=== PATIENT | female | born 1955 | race Caucasian/White ===

== ENCOUNTER 2017-12-16 13:25 | Emergency (ER) | payer OTHER ==
[2017-12-16 13:41] VITALS: TEMP 97.6; BMI 32.1
--- NOTE | 2017-12-16 14:44 | PDOC ---
Attending Attestation - Resident Resident Name: Ewelina Schultz - ED Attending Attestation I have performed the following: I have examined & evaluated the patient, The case was reviewed & discussed with the resident, I agree w/resident's findings & plan, Exceptions are as noted - HPI HPI: 12/16/17 16:58 62y F hx of htn, vasculitis, ckd (kdiney function 80% pr pt) sent to the ED by Dr. Riggs for complaint of R leg pain and swelling to r/o dVT. The pt states she has been having swelling/pain for about a week - she went to her docotr who treated her with tylenol and keflex. The patient states the meds arent helping to omuch. the pt denies fever/chills, sob, chest pain, recent trauma/injuries. the pts pain is worse when she is laying flat, and worse when she is ambulating. PT states it feels a bit better when on exam the pt has focal tenderness to the R buttock. ?sciatica dvt study negative for dvts will obtain blodo work to r/o renal insufficiency, liver failure as cause for her worsening leg swelling. will treat with tylenol, valuium for sciatica - Physicial Exam PE: 12/17/17 08:02 see above - Medical Decision Making 12/17/17 08:02 desiree muñoz
[2017-12-16] MEDS ORDERED: ACETAMINOPHEN 500 MG TABLET (FP) PO ONE (15:03)
--- NOTE | 2017-12-16 15:44 | PDOC ---
History of Present Illness - General Chief Complaint: Pain, Acute Stated Complaint: PAIN IN RIGHT LEG. Time Seen by Provider: 12/16/17 14:20 History Source: Patient, Significant Other Exam Limitations: No Limitations - History of Present Illness Initial Comments: This is a 62 YOF with h/o prior DVT (takes ASA but not currently on anticoagulant), vasculitis (on Cellcept), HTN, HLD, who presents as instructed by her PCP Stan Riggs for RLE pain, swelling, and redness, as well as LLE increased chronic swelling. The pain is up to 10/10 and is shooting in nature, located along the entire right lateral leg to the hip, with the worst pain in the upper leg and hip. She denies any chest pain, SOB, palpitations, cough, recent surgery/immobilization, recent car or airplane travel, estrogen use, or other additional risk factors. Past History - Past Medical History Allergies/Adverse Reactions: Allergies Allergy/AdvReac Type Severity Reaction Status Date / Time No Known Allergies Allergy Verified 12/16/17 13:35 Home Medications: Ambulatory Orders Calcium Carbonate/Vitamin D3 [Calcium 500 + Vit D 200 Caplet] 1 tab PO DAILY 10/17 Iron Ps Complex/B12/Folic Acid [Ferrex 150 Forte Capsule] 1 cap PO DAILY Metoprolol Tartrate 100 mg PO DAILY 12/12/15 Mycophenolate Mofetil 500 mg PO BID 12/12/15 Omeprazole [Prilosec (RX)] 40 mg PO DAILY 12/12/15 Alendronate Na [Fosamax] 70 mg PO Q7D 12/16/17 Amlodipine Besylate [Norvasc -] 10 mg PO DAILY 12/16/17 Aspirin 162 mg PO DAILY 12/16/17 Cephalexin [Keflex] 500 mg PO BID 12/16/17 Methylprednisolone [Medrol Dose Dennis] 4 mg PO ASDIR #21 tablet 12/16/17 Oxycodone HCl/Acetaminophen [Percocet 5-325 mg Tablet] 1 tab PO Q4H #20 tablet MDD 6 12/16/17 COPD: No DVT: No HTN: Yes - Surgical History Abdominal Surgery: Yes (ABDOMINAL ulcer repair 2010) Orthopedic Surgery: Yes (fx femur repair 07/2015) - Immunization History Immunization Up to Date: Yes - Suicide/Smoking/Psychosocial Hx Smoking History: Never smoked Have you smoked in the past 12 months: No Information on smoking cessation initiated: No Hx Alcohol Use: No Drug/Substance Use Hx: No Substance Use Type: None Review of Systems - Review of Systems Able to Perform ROS?: Yes Constitutional: No: Chills, Fever, Unexplained wgt Loss HEENTM: No: Nose Congestion, Throat Pain Respiratory: No: Cough, Shortness of Breath Cardiac (ROS): No: Chest Pain, Palpitations ABD/GI: No: Constipated, Diarrhea, Nausea, Vomiting : No: Burning, Dysuria Musculoskeletal: Yes: Other (right leg pain, redness, and swelling). No: Back Pain, Neck Pain Integumentary: No: Bruising, Rash Neurological: No: Headache, Numbness, Tingling, Weakness, Dizziness Endocrine: No: Unexplained Weight Gain, Unexplained Weight Loss *Physical Exam - Vital Signs Last Vital Signs Temp Pulse Resp BP Pulse Ox 97.6 F 73 16 150/80 98 12/16/17 13:36 12/16/17 13:36 12/16/17 13:36 12/16/17 13:36 12/16/17 13:36 - Physical Exam General Appearance: Yes: Nourished, Appropriately Dressed, Obese, Other (alert, answers questions appropriately, accompanied by supportive brother at bedside). No: Apparent Distress HEENT: positive: EOMI, JUANY, Normal Voice, Hearing Grossly Normal. negative: Scleral Icterus (R), Scleral Icterus (L), Nasal Congestion Neck: positive: Trachea midline, Supple. negative: Tender, Rigid Respiratory/Chest: positive: Lungs Clear, Normal Breath Sounds. negative: Chest Tender, Respiratory Distress, Crackles, Rhonchi, Stridor, Wheezing Cardiovascular: positive: Regular Rhythm, Regular Rate, S1, S2, Edema (2+ pitting edema BLE). negative: Murmur, Gallop/S3, Gallop/S4 Comments:: right DP pulse not palpable but there is 2+ pitting edema Gastrointestinal/Abdominal: positive: Normal Bowel Sounds, Soft. negative: Tender, Organomegaly, Pulsatile Mass, Guarding Musculoskeletal: positive: Normal Inspection. negative: CVA Tenderness, Decreased Range of Motion, Vertebral Tenderness Extremity: positive: Normal Capillary Refill, Normal Inspection, Normal Range of Motion, Pedal Edema (bilateral), Swelling, Other (mild erythema RLE but without any warmth, staight leg raises elicits shooting pain in the right lateral hip/thigh). negative: Tender, Coldness, Cyanosis, Delayed Capillary Refill, Calf Tenderness Integumentary: positive: Normal Color, Dry, Warm. negative: Erythema, Rash, Bruising Neurologic: positive: electrical timing device calibrator II-XII NML intact (grossly), Fully Oriented, Alert, Normal Mood/Affect, Normal Response, Motor Strength 5/5. negative: EOM Palsy, Facial Droop, Finger to Nose, Confused, Disoriented ED Treatment Course - LABORATORY CBC & Chemistry Diagram: 12/16/17 16:40 12/16/17 16:40 - RADIOLOGY Radiology Studies Ordered: Category Date Time Status ANKLE & FOOT-LEFT* [RAD] Stat Radiology 12/16/17 15:05 Ordered CHEST PA & LAT [RAD] Stat Radiology 12/16/17 15:04 Ordered DUPLEX VASCUL US-2LEGS [US] Stat Ultrasound 12/16/17 14:40 Ordered Medical Decision Making - Medical Decision Making 62 YOF with h/o prior DVT, HTN, HLD, vasculitis who p/w increase RLE swelling/ pain. On exam VS wnl and she is in no distress at rest but winces with movement of RLE and splints right hip. 2+ pitting edema BLE but no JVD, no gallop, normal heart and lung exams. DDX IBNLT DVT, CHF exacerbation, renal insufficiency, sciatica and dependent edema, etc. Ordered is CBCD, CMP, Mg, cardiac panel, BNP, coags, T&S, US duplex BLE, ankle/ foot XR, CXR. 12/16/17 17:18 US Duplex BLE negative for DVT or other pathology. CBC and coags wnl, CMP with Cr 1.4 and BNP in the 900s. 12/16/17 18:14 Patient is able to walk unassisted, with cane, to x-ray room from vertical room. States her pain is well-controlled after Tylenol and Valium doses here in the ED. 12/16/17 18:[address] Stan Riggs who notes Pt's Cr is normally 1.2-1.4. Will call him back with XR results and plan based on those results. *DC/Admit/Observation/Transfer Diagnosis at time of Disposition: Leg swelling Sciatica Qualifiers: Laterality: right Qualified Code(s): M54.31 - Sciatica, right side - Discharge Dispostion Disposition: HOME Condition at time of disposition: Stable Admit: No - Prescriptions Prescriptions: Methylprednisolone [Medrol Dose Dennis] 4 mg PO ASDIR #21 tablet Oxycodone HCl/Acetaminophen [Percocet 5-325 mg Tablet] 1 tab PO Q4H #20 tablet MDD 6 - Referrals Referrals: Stan Riggs MD [Primary Care Provider] - - Patient Instructions Additional Instructions: You were seen in the ER for right leg pain and swelling. We did lab work and x- rays of the ankle, foot, and chest. There were no concerning findings on our workup. We gave you Tylenol and a dose of valium which helped with the pain. We are sending an electronic prescription for a Medrol Dosepak to help with the inflammation, and Percocet for the pain (which has Tylenol in it already). Please follow up with Dr. Riggs this week. Return to the ER for any worsening pain or new symptoms like shortness of breath or chest pain. - Post Discharge Activity
[2017-12-16] MEDS ORDERED: ACETAMINOPHEN 325 MG TABLET (FP) ONE (15:49)
[2017-12-16 16:47] LABS: BASO % 0.9 % (0-2.0); EOS % 0.9 % (0-4.5); HEMOGLOBIN 14.1 GM/dL (10.7-15.3); LYMPH % 25.1 % (8-40); MCH 28.5 pg (25.7-33.7); MEAN PLT VOLUME 9.3 fl (7.5-11.1); NEUT % 65.1 % (42.8-82.8); PLATELET COUNT 205 K/MM3 (134-434); RBC 4.95 M/mm3 (3.60-5.2); RDW 15.5 % (11.6-15.6); WHITE BLOOD COUNT 6.1 K/mm3 (4.0-10.0)
[2017-12-16 17:09] LABS: INR 0.92 (0.82-1.09); PROTHROMBIN TIME (PATIENT) 10.4 SEC (9.98-11.88)
[2017-12-16] MEDS ORDERED: diazePAM 2 MG TABLET PO ONE (17:11)
[2017-12-16 17:25] LABS: ALBUMIN 4.4 g/dl (3.4-5.0); ANION GAP 9 (8-16); BILIRUBIN,TOTAL 0.6 mg/dL (0.2-1.0); BLOOD UREA NITROGEN 36 mg/dL (7-18); CALCIUM 9.4 mg/dL (8.5-10.1); CHLORIDE 105 mmol/L (98-107); CO2 26 mmol/L (21-32); CREATININE 1.4 mg/dL (0.55-1.02); GLUCOSE,RANDOM 103 mg/dL (74-106); MAGNESIUM 2.2 mg/dL (1.8-2.4); POTASSIUM 4.4 mmol/L (3.5-5.1); SGOT/AST 20 U/L (15-37); SGPT/ALT 27 U/L (12-78); SODIUM 140 mmol/L (136-145); TOT PROT 7.8 g/dl (6.4-8.2)
[2017-12-16 17:28] LABS: ALK PHOS 69 U/L (45-117)
[2017-12-16] MEDS ORDERED: diazePAM 2 MG TABLET ONE (17:30)
[2017-12-16 20:27] VITALS: BP 138/86; PULSE 80
== END 2017-12-16 20:27 | disposition home or self-care (01) ==
LOC: JER 13:25
DX: M54.31 Sciatica, right side (principal); R60.0 Localized edema; Z86.718 Personal history of other venous thrombosis and embolism; Z79.82 Long term (current) use of aspirin; I10 Essential (primary) hypertension; E78.00 Pure hypercholesterolemia, unspecified; I77.6 Arteritis, unspecified
CPT/HCPCS: 36415; 71046-TC; 73610-TC-RT; 73630-TC-RT; 80053; 82550; 83735; 83880; 84484; 85025; 85610; 85730; 86850; 86900; 86901; 93970-TC; 99284-25

== ENCOUNTER 2019-06-12 12:50 | Inpatient (IN) | payer OTHER ==
--- NOTE | 2019-06-12 13:04 | PDOC ---
Rapid Medical Evaluation Time Seen by Provider: 06/12/19 13:02 Medical Evaluation: Allergies Allergy/AdvReac Type Severity Reaction Status Date / Time No Known Allergies Allergy Verified 12/16/17 13:35 06/12/19 13:02 I have performed a brief in-person evaluation of this patient. The patient presents with a chief complaint of: sent by PMD to r/o DVT Pertinent physical exam findings: BLE swelling and erythema with L>R I have ordered the following: sono The patient will proceed to the ED for further evaluation. Discharge Disposition - Diagnosis Leg swelling - Referrals - Patient Instructions - Post Discharge Activity
--- NOTE | 2019-06-12 15:48 | PDOC ---
History of Present Illness - General Chief Complaint: Edema Stated Complaint: LT. SWOLLEN LEG Time Seen by Provider: 06/12/19 13:02 History Source: Patient Exam Limitations: No Limitations - History of Present Illness Initial Comments: 06/12/19 15:36 64 yo F h/o vasculitis, on cellcept htn, hld chf here today c/o bilat leg swelling and pain. saw pcp Stan apodaca this am sent to r/o dvt. pt denies fever, no n/v no cp no sob. but does have bilat leg pain . is ambulating with cane with difficulty does have a walker at home. no cp no sob. no f/c no h/o dvt or pe. Past History - Past Medical History Allergies/Adverse Reactions: Allergies Allergy/AdvReac Type Severity Reaction Status Date / Time No Known Allergies Allergy Verified 12/16/17 13:35 Home Medications: Ambulatory Orders Calcium Carbonate/Vitamin D3 [Calcium 500 + Vit D 200 Caplet] 1 tab PO DAILY 10/17 Iron Ps Complex/B12/Folic Acid [Ferrex 150 Forte Capsule] 1 cap PO DAILY Metoprolol Tartrate 100 mg PO DAILY 12/12/15 Mycophenolate Mofetil 500 mg PO BID 12/12/15 Alendronate Na [Fosamax] 70 mg PO Q7D 12/16/17 Amlodipine Besylate [Norvasc -] 10 mg PO DAILY 12/16/17 Aspirin 81 mg PO DAILY 12/16/17 COPD: No DVT: No HTN: Yes - Surgical History Abdominal Surgery: Yes (ABDOMINAL ulcer repair 2010) Orthopedic Surgery: Yes (fx femur repair 07/2015) - Immunization History Immunization Up to Date: Yes - Suicide/Smoking/Psychosocial Hx Smoking History: Never smoked Have you smoked in the past 12 months: No Hx Alcohol Use: No Drug/Substance Use Hx: No Substance Use Type: None Review of Systems - Review of Systems Constitutional: No: Chills, Diaphoresis, Fever HEENTM: No: Eye Pain Respiratory: No: Cough, Orthopnea, Shortness of Breath Cardiac (ROS): Yes: Edema. No: Chest Pain Integumentary: No: Bruising, Change in Color All Other Systems: Reviewed and Negative *Physical Exam - Vital Signs Last Vital Signs Temp Pulse Resp BP Pulse Ox 98.1 F 78 20 156/84 92 L 07/12/19 13:03 06/12/19 13:03 06/12/19 13:03 06/12/19 13:03 06/12/19 13:03 - Physical Exam Comments: 06/12/19 15:48 awake alert lungs clear bilat heart rrr no mrg abd soft nt nd obese. bilat leg brawning edema. erythema and warmth right leg level of knee. no tenderness. 1+ dp/ pulses bilat. nuero alert oriented x 3. Heart Score/ECG Review #1 General ECG Interpretation: Sinus Rhythm, Normal Rate (70), Normal Intervals, No acute ischemic changes ED Treatment Course - LABORATORY CBC & Chemistry Diagram: 06/12/19 16:20 06/12/19 16:20 Medical Decision Making - Medical Decision Making 06/12/19 15:49 64 yo F with h/o htn vasculitis, hld chf on cellcept for vasculitit here with bilat leg swelling erythema and pain. differential dvt, cellultiis, pt is immunocompromised. plan labs ekg us bilat legs. yefri d/w dr stan Riggs. ,myra riggs paged [phone] [facility] *DC/Admit/Observation/Transfer Diagnosis at time of Disposition: Leg swelling, Cellulitis - Discharge Dispostion Decision to Admit order: Yes - Referrals - Patient Instructions - Post Discharge Activity
[2019-06-12] MEDS ORDERED: VANCOMYCIN 1 GM in D5W (PRE-DOCKED) 1,000 MG/250 ML IVPB ONE (16:16)
[2019-06-12] MEDS ORDERED: PIPERACILLIN/TAZOB 3.375 GM 3.375 GM in DEXTROSE 5%-WATER - 50 ML IVPB ONE (16:16)
[2019-06-12] MEDS ORDERED: PIPERACILLIN/TAZOB 3.375 GM 3.375 GM/50 ML BAG IVPB ONE (16:30)
[2019-06-12] MEDS ORDERED: VANCOMYCIN 1 GRAM (PRE-DOCKED) 1,000 MG/250 ML BAG IVPB ONE (16:30)
[2019-06-12 17:03] LABS: BASO % 0.7 % (0-2.0); HEMATOCRIT 41.3 % (32.4-45.2); HEMOGLOBIN 13.7 GM/dL (10.7-15.3); LYMPH % 25.5 % (8-40); MCH 29.4 pg (25.7-33.7); MCHC 33.1 g/dl (32.0-36.0); MEAN PLT VOLUME 8.8 fl (7.5-11.1); NEUT % 64.8 % (42.8-82.8); PLATELET COUNT 209 K/MM3 (134-434); RBC 4.64 M/mm3 (3.60-5.2); RDW 13.5 % (11.6-15.6)
--- NOTE | 2019-06-12 17:55 | HP ---
Admitting History and Physical - Admission Chief Complaint: came to office c/o lt leg pain scale5 swelling erythematousx 1 wk History Source: Patient Limitations to Obtaining History: Other (unstedy gait due to lt leg) - Past Medical History Cardiovascular: Yes: CHF, HTN Pulmonary: Yes: Other (h/o pud healeg) Reproductive: Yes: Postmenopausal Musculoskeletal: Yes: Other (h/p lt femur fx) Rheumatology: Yes: Other (h/o dvth/o vasculitis colon kidney legs) Dermatology: Yes: Cellulitis - Past Surgical History Past Surgical History: Yes: Vein Stripping/Ligation - Smoking History Smoking history: Never smoked Have you smoked in the past 12 months: No - Alcohol/Substance Use Hx Alcohol Use: No - Social History Usual Living Arrangement: Yes: Alone ADL: Independent History of Recent Travel: No Home Medications - Allergies Allergies/Adverse Reactions: Allergies Allergy/AdvReac Type Severity Reaction Status Date / Time No Known Allergies Allergy Verified 12/16/17 13:35 - Home Medications Home Medications: Ambulatory Orders Calcium Carbonate/Vitamin D3 [Calcium 500 + Vit D 200 Caplet] 1 tab PO DAILY 10/17 Iron Ps Complex/B12/Folic Acid [Ferrex 150 Forte Capsule] 1 cap PO DAILY Metoprolol Tartrate 100 mg PO DAILY 12/12/15 Mycophenolate Mofetil 500 mg PO BID 12/12/15 Alendronate Na [Fosamax] 70 mg PO Q7D 12/16/17 Amlodipine Besylate [Norvasc -] 10 mg PO DAILY 12/16/17 Aspirin 81 mg PO DAILY 12/16/17 Family Disease History - Family Disease History Family History: Unremarkable Review of Systems - Review of Systems Musculoskeletal: reports: Other (lt leg cellulitis lyphodema) Physical Examination Vital Signs: Vital Signs Temperature 98.2 F 06/12/19 17:37 Pulse Rate 76 06/12/19 17:37 Respiratory Rate 23 H 06/12/19 17:37 Blood Pressure 136/76 06/12/19 17:37 O2 Sat by Pulse Oximetry (%) 98 06/12/19 17:37 Constitutional: Yes: Well Nourished Eyes: Yes: WNL HENT: Yes: WNL Neck: Yes: WNL Cardiovascular: Yes: WNL Respiratory: Yes: WNL Gastrointestinal: Yes: WNL ...Rectal Exam: Yes: Deferred Renal/: Yes: WNL Breast(s): Yes: WNL Musculoskeletal: Yes: Back Pain, Joint Stiffness Extremities: Yes: Delayed Capillary Refill Edema: Yes Edema: LLE: 2+, RLE: 1+ Peripheral Pulses WNL: Yes Integumentary: Yes: Erythema Neurological: Yes: WNL ...Motor Strength: WNL Psychiatric: Yes: WNL Labs: CBC, BMP 06/12/19 16:20 Assessment/Plan dx lt leg cellulitis h/o dvt vaSCULITIS HTN PUD HEALED PLAN VASC ID TO SEE PT CONT ALL MEDS HOME IV ANTIBIOTICS LEG ELEVATION WARM SOAKS
[2019-06-12 18:11] LABS: ALBUMIN 4.4 g/dl (3.4-5.0); BILIRUBIN,TOTAL 0.6 mg/dL (0.2-1); BLOOD UREA NITROGEN 30.5 mg/dL (7-18); CREATININE 1.4 mg/dL (0.55-1.3); POTASSIUM 4.2 mmol/L (3.5-5.1); TOT PROT 7.6 g/dl (6.4-8.2)
[2019-06-12] MEDS: METOPROLOL TARTRATE 50 MG TABLET (FP) PO SCH (21:56)
[2019-06-12] MEDS: MYCOPHENOLATE MOFETIL 500 MG TABLET PO SCH (21:56)
[2019-06-12] MEDS: ROSUVASTATIN CA 20 MG TABLET (FP) PO SCH (21:56)
[2019-06-13] MEDS: ACETAMINOPHEN 325 MG TABLET (FP) PO PRN ×4 (03:11→21:33)
[2019-06-13 07:57] LABS: HEMATOCRIT 35.6 % (32.4-45.2); HEMOGLOBIN 11.8 GM/dL (10.7-15.3); MCH 29.6 pg (25.7-33.7); MCHC 33.1 g/dl (32.0-36.0); MEAN CELL VOLUME 89.4 fl (80-96); MEAN PLT VOLUME 9.1 fl (7.5-11.1); PLATELET COUNT 171 K/MM3 (134-434); RBC 3.99 M/mm3 (3.60-5.2); RDW 13.3 % (11.6-15.6); WHITE BLOOD COUNT 5.3 K/mm3 (4.0-10.0)
[2019-06-13 08:08] LABS: ALBUMIN 3.5 g/dl (3.4-5.0); BILIRUBIN,TOTAL 0.6 mg/dL (0.2-1); CALCIUM 8.9 mg/dL (8.5-10.1); CREATININE 1.3 mg/dL (0.55-1.3); POTASSIUM 3.9 mmol/L (3.5-5.1); TOT PROT 6.1 g/dl (6.4-8.2)
[2019-06-13] MEDS: METOPROLOL TARTRATE 50 MG TABLET (FP) PO SCH ×2 (09:17→21:35)
[2019-06-13] MEDS: ASPIRIN COATED 81 MG TABLET.EC PO SCH (09:17)
[2019-06-13] MEDS: FUROSEMIDE 40 MG TABLET (FP) PO SCH (09:17)
[2019-06-13] MEDS ORDERED: PT OWN MED DRAWER 7, Y5N ONE ×4 (09:18→21:06)
[2019-06-13] MEDS: MYCOPHENOLATE MOFETIL 500 MG TABLET PO SCH ×2 (09:19→21:36)
--- NOTE | 2019-06-13 09:31 | EKG ---
Test Reason : Blood Pressure : / mmHG Vent. Rate : 070 BPM Atrial Rate : 070 BPM P-R Int : 146 ms QRS Dur : 088 ms QT Int : 430 ms P-R-T Axes : 022 013 022 degrees QTc Int : 464 ms POOR DATA QUALITY, INTERPRETATION MAY BE ADVERSELY AFFECTED NORMAL SINUS RHYTHM NORMAL ECG NO PREVIOUS ECGS AVAILABLE Confirmed by SANDIE ANDERSEN MD ([id number]) on 06/13/2019 9:31:08 AM Referred By: Confirmed By:SANDIE ANDERSEN MD
--- NOTE | 2019-06-13 10:55 | CON.ID ---
Consult Consult Specialty:: infectious diseases Referred by:: Reason for Consultation:: cellulitis of the leg - History of Present Illness Chief Complaint: pain and swelling of the legs History of Present Illness: 64 yo F h/o vasculitis, on cellcept htn, hld chf here today c/o bilat leg swelling and pain. saw pcp Stan apodaca this am sent to r/o dvt. pt denies fever, no n/v no cp no sob. but does have bilat leg pain . is ambulating with cane with difficulty does have a walker at home. no cp no sob. no f/c no h/o dvt or pe. patient mentions that he legs have been swollen for some time,left leg looks worse than the right patient was given vanco and zosyn, patient developed a rash - History Source History Provided By: Patient Limitations to Obtaining History: No Limitations - Past Medical History Cardio/Vascular: Yes: CHF, HTN Pulmonary: Yes: Other (h/o pud healeg) Musculoskeletal: Yes: Other (h/p lt femur fx) Rheumatology: Yes: Other (h/o dvth/o vasculitis colon kidney legs) Dermatology: Yes: Cellulitis - Past Surgical History Past Surgical History: Yes: Vein Stripping/Ligation - Alcohol/Substance Use Hx Alcohol Use: No - Smoking History Smoking history: Never smoked Have you smoked in the past 12 months: No - Social History ADL: Independent History of Recent Travel: No Home Medications - Allergies Allergies/Adverse Reactions: Allergies Allergy/AdvReac Type Severity Reaction Status Date / Time No Known Allergies Allergy Verified 12/16/17 13:35 - Home Medications Home Medications: Ambulatory Orders Calcium Carbonate/Vitamin D3 [Calcium 500 + Vit D 200 Caplet] 1 tab PO DAILY 10/17 Iron Ps Complex/B12/Folic Acid [Ferrex 150 Forte Capsule] 1 cap PO DAILY RX: Metoprolol Tartrate 100 mg PO DAILY 12/12/15 RX: Mycophenolate Mofetil 500 mg PO BID 12/12/15 Alendronate Na [Fosamax] 70 mg PO Q7D 12/16/17 Amlodipine Besylate [Norvasc -] 10 mg PO DAILY 12/16/17 RX: Aspirin 81 mg PO DAILY 12/16/17 Furosemide [Lasix -] 40 mg PO DAILY 06/12/19 Review of Systems - Review of Systems Constitutional: reports: No Symptoms Eyes: reports: No Symptoms HENT: reports: No Symptoms Neck: reports: No Symptoms Cardiovascular: reports: No Symptoms Respiratory: reports: No Symptoms Gastrointestinal: reports: No Symptoms Genitourinary: reports: No Symptoms Musculoskeletal: reports: Other Integumentary: reports: Erythema (left leg) Neurological: reports: No Symptoms Endocrine: reports: No Symptoms Hematology/Lymphatic: reports: No Symptoms Psychiatric: reports: No Symptoms Physical Exam Vital Signs: Vital Signs Temperature 98.1 F 06/13/19 06:00 Pulse Rate 64 06/13/19 06:00 Respiratory Rate 18 06/13/19 06:00 Blood Pressure 122/67 06/13/19 06:00 O2 Sat by Pulse Oximetry (%) 97 06/12/19 21:00 Constitutional: Yes: No Distress, Calm, Obese Cardiovascular: Yes: Pulse Irregular Respiratory: Yes: Regular, CTA Bilaterally Gastrointestinal: Yes: Normal Bowel Sounds, Soft Musculoskeletal: Yes: Other Extremities: Yes: Erythema (left leg), Other (swollen) Integumentary: Yes: Erythema (left leg) Neurological: Yes: Alert, Oriented Psychiatric: Yes: Alert, Oriented Labs: CBC, BMP 06/13/19 06:30 06/13/19 06:30 Imaging - Results Chest X-ray: Report Reviewed, Image Reviewed Ultrasound: Report Reviewed, Image Reviewed Assessment/Plan 64 yo F with h/o htn vasculitis, hld chf on cellcept for vasculitit here with bilat leg swelling erythema and pain. differential dvt, cellultiis, pt is immunocompromised. left leg cellulitis rash swelling of both legs htn plan will start patient on clinda monitor the legs
[2019-06-13] MEDS: CLINDAMYCIN 300 MG PREMIX IVPB 300 MG/50 ML BAG IVPB SCH ×2 (12:31→18:40)
--- NOTE | 2019-06-13 12:59 | PN ---
Progress Note, Physician Chief Complaint: now c/o rt leg pain scale 9 crying - Current Medication List Current Medications: Active Medications Acetaminophen (Tylenol -) 650 mg PO Q4H PRN PRN Reason: MODERATE PAIN Last Admin: 06/13/19 12:33 Dose: 650 mg Aspirin (Ecotrin -) 81 mg PO DAILY [facility] Last Admin: 06/13/19 09:17 Dose: 81 mg Furosemide (Lasix -) 40 mg PO DAILY [facility] Last Admin: 06/13/19 09:17 Dose: 40 mg Clindamycin Phosphate (Cleocin 300 Mg Premix Ivpb) 300 mg in 50 mls @ 100 mls/ hr IVPB Q8H-IV SRUTHI; Protocol Last Admin: 06/13/19 12:31 Dose: 100 mls/hr Metoprolol Tartrate (Lopressor -) 100 mg PO BID [facility] Last Admin: 06/13/19 09:17 Dose: 100 mg Mycophenolate Mofetil (Cellcept -) 500 mg PO BID [facility] Last Admin: 06/13/19 09:19 Dose: 500 mg Rosuvastatin Calcium (Crestor -) 20 mg PO HS [facility] Last Admin: 06/12/19 21:56 Dose: 20 mg - Objective Vital Signs: Vital Signs Temperature 97.3 F L 06/13/19 12:49 Pulse Rate 83 06/13/19 12:49 Respiratory Rate 18 06/13/19 12:49 Blood Pressure 120/75 06/13/19 12:49 O2 Sat by Pulse Oximetry (%) 97 06/12/19 21:00 Constitutional: Yes: Other (pain) Eyes: Yes: WNL HENT: Yes: WNL Neck: Yes: WNL Cardiovascular: Yes: WNL Respiratory: Yes: WNL Gastrointestinal: Yes: WNL ...Rectal Exam: Yes: Deferred Genitourinary: Yes: WNL Breast(s): Yes: WNL Musculoskeletal: Yes: Other (rt leg pain) Edema: Yes Edema: LLE: 2+, RLE: 2+ Peripheral Pulses WNL: Yes Integumentary: Yes: WNL Wound/Incision: Yes: Clean/Dry Neurological: Yes: WNL ...Motor Strength: WNL Psychiatric: Yes: WNL Labs: CBC, BMP 06/13/19 06:30 06/13/19 06:30 Assessment/Plan pain control xrays cont tx as is benadryl
[2019-06-13] MEDS ORDERED: HYDROmorphone HCL 2 MG TABLET PO PRN (13:00)
[2019-06-13] MEDS: PIPERACILLIN/TAZOB 3.375 GM 3.375 GM in DEXTROSE 5%-WATER - 50 ML IVPB SCH (17:02)
[2019-06-13] MEDS: ROSUVASTATIN CA 20 MG TABLET (FP) PO SCH (21:35)
[2019-06-14] MEDS: CLINDAMYCIN 300 MG PREMIX IVPB 300 MG/50 ML BAG IVPB SCH ×3 (02:26→18:00)
[2019-06-14] MEDS ORDERED: PT OWN MED DRAWER 7, Y5N ONE ×3 (02:59→21:04)
[2019-06-14 08:29] LABS: BASO % 0.2 % (0-2.0); EOS % 0.6 % (0-4.5); HEMATOCRIT 37.8 % (32.4-45.2); HEMOGLOBIN 12.4 GM/dL (10.7-15.3); LYMPH % 4.1 % (8-40); MCH 29.3 pg (25.7-33.7); MCHC 32.8 g/dl (32.0-36.0); MEAN CELL VOLUME 89.5 fl (80-96); MEAN PLT VOLUME 9.2 fl (7.5-11.1); MONO % 1.8 % (3.8-10.2); NEUT % 93.3 % (42.8-82.8); RBC 4.23 M/mm3 (3.60-5.2); RDW 13.6 % (11.6-15.6); WHITE BLOOD COUNT 14.7 K/mm3 (4.0-10.0)
[2019-06-14 08:35] LABS: CALCIUM 8.4 mg/dL (8.5-10.1); CREATININE 1.6 mg/dL (0.55-1.3); POTASSIUM 3.5 mmol/L (3.5-5.1)
[2019-06-14 08:47] LABS: PLATELET COUNT 162 K/MM3 (134-434)
--- NOTE | 2019-06-14 09:44 | PN ---
Progress Note, Physician History of Present Illness: patient stable rash improving leg starting to improve still some warmth says paper machine tender when pressure is put on it - Current Medication List Current Medications: Active Medications Acetaminophen (Tylenol -) 650 mg PO Q4H PRN PRN Reason: MODERATE PAIN Last Admin: 06/13/19 21:33 Dose: 650 mg Aspirin (Ecotrin -) 81 mg PO DAILY [facility] Last Admin: 06/13/19 09:17 Dose: 81 mg Furosemide (Lasix -) 40 mg PO DAILY [facility] Last Admin: 06/13/19 09:17 Dose: 40 mg Hydromorphone HCl (Dilaudid -) 2 mg PO Q8H PRN PRN Reason: PAIN LEVEL 7 - 10 Clindamycin Phosphate (Cleocin 300 Mg Premix Ivpb) 300 mg in 50 mls @ 100 mls/ hr IVPB Q8H-IV SRUTHI; Protocol Last Admin: 06/14/19 02:26 Dose: 100 mls/hr Metoprolol Tartrate (Lopressor -) 100 mg PO BID [facility] Last Admin: 06/13/19 21:35 Dose: 100 mg Mycophenolate Mofetil (Cellcept -) 500 mg PO BID [facility] Last Admin: 06/13/19 21:36 Dose: 500 mg Rosuvastatin Calcium (Crestor -) 20 mg PO HS [facility] Last Admin: 06/13/19 21:35 Dose: 20 mg - Objective Vital Signs: Vital Signs Temperature 98.4 F 06/14/19 07:29 Pulse Rate 77 06/14/19 07:29 Respiratory Rate 18 06/14/19 07:29 Blood Pressure 96/54 L 06/14/19 07:29 O2 Sat by Pulse Oximetry (%) 98 06/13/19 21:00 Constitutional: Yes: No Distress, Calm Cardiovascular: Yes: S1, S2 Respiratory: Yes: Regular, CTA Bilaterally Gastrointestinal: Yes: Normal Bowel Sounds, Soft Musculoskeletal: Yes: Other Extremities: Yes: Other (swollen,red) Neurological: Yes: Alert, Oriented Psychiatric: Yes: Alert, Oriented Labs: CBC, BMP 06/14/19 07:37 06/14/19 07:37 Assessment/Plan 64 yo F with h/o htn vasculitis, hld chf on cellcept for vasculitit here with bilat leg swelling erythema and pain. differential dvt, cellultiis, pt is immunocompromised. left leg cellulitis rash swelling of both legs htn plan continue current mgmt elevation of the leg rest as per the team
[2019-06-14] MEDS: METOPROLOL TARTRATE 50 MG TABLET (FP) PO SCH ×2 (10:23→22:02)
[2019-06-14] MEDS: ASPIRIN COATED 81 MG TABLET.EC PO SCH (10:23)
[2019-06-14] MEDS: FUROSEMIDE 40 MG TABLET (FP) PO SCH (10:23)
[2019-06-14] MEDS: MYCOPHENOLATE MOFETIL 500 MG TABLET PO SCH ×2 (10:23→22:01)
[2019-06-14 11:39] LABS: ANISOCYTOSIS 0; MACROCYTOSIS 0
[2019-06-14 11:52] LABS: PLATELET ESTIMATE ADEQUATE
[2019-06-14] MEDS: ACETAMINOPHEN 325 MG TABLET (FP) PO PRN ×3 (13:02→22:02)
[2019-06-14] MEDS: diphenhydrAMINE HCL 25 MG CAPSULE (FP) PO PRN ×2 (14:19→22:01)
--- NOTE | 2019-06-14 16:47 | PN ---
Progress Note, Physician History of Present Illness: feels better nl bm oob ok rash n/c tolerating diet xray osteonecrosis rt hip orhi pnd - Current Medication List Current Medications: Active Medications Acetaminophen (Tylenol -) 650 mg PO Q4H PRN PRN Reason: MODERATE PAIN Last Admin: 06/14/19 13:02 Dose: 650 mg Aspirin (Ecotrin -) 81 mg PO DAILY [facility] Last Admin: 06/14/19 10:23 Dose: 81 mg Diphenhydramine HCl (Benadryl -) 25 mg PO Q6H PRN PRN Reason: FOR ITCHING Last Admin: 06/14/19 14:19 Dose: 25 mg Furosemide (Lasix -) 40 mg PO DAILY [facility] Last Admin: 06/14/19 10:23 Dose: 40 mg Hydromorphone HCl (Dilaudid -) 2 mg PO Q8H PRN PRN Reason: PAIN LEVEL 7 - 10 Clindamycin Phosphate (Cleocin 300 Mg Premix Ivpb) 300 mg in 50 mls @ 100 mls/ hr IVPB Q8H-IV [facility]; Protocol Last Admin: 06/14/19 10:23 Dose: 100 mls/hr Metoprolol Tartrate (Lopressor -) 100 mg PO BID [facility] Last Admin: 06/14/19 10:23 Dose: 100 mg Mycophenolate Mofetil (Cellcept -) 500 mg PO BID [facility] Last Admin: 06/14/19 10:23 Dose: 500 mg Rosuvastatin Calcium (Crestor -) 20 mg PO HS [facility] Last Admin: 06/13/19 21:35 Dose: 20 mg - Objective Vital Signs: Vital Signs Temperature 98.0 F 06/14/19 13:55 Pulse Rate 80 06/14/19 13:55 Respiratory Rate 18 06/14/19 13:55 Blood Pressure 111/63 06/14/19 13:55 O2 Sat by Pulse Oximetry (%) 98 06/14/19 09:00 Constitutional: Yes: Well Nourished, No Distress Eyes: Yes: WNL HENT: Yes: WNL Neck: Yes: WNL Cardiovascular: Yes: WNL Respiratory: Yes: WNL Gastrointestinal: Yes: WNL ...Rectal Exam: Yes: Deferred Genitourinary: Yes: WNL Breast(s): Yes: WNL Musculoskeletal: Yes: Back Pain Edema: Yes Edema: LLE: 1+, RLE: 1+ Integumentary: Yes: Venous Stasis Changes, Other (rash blanches n/c) Neurological: Yes: WNL ...Motor Strength: WNL Psychiatric: Yes: WNL Labs: CBC, BMP 06/14/19 07:37 06/14/19 07:37 Assessment/Plan benadrylpo daily ortho f/u warm soaks bid daily
[2019-06-14] MEDS ORDERED: ROSUVASTATIN CA 10 MG TABLET (FP) ONE (21:04)
[2019-06-14] MEDS: ROSUVASTATIN CA 20 MG TABLET (FP) PO SCH (22:04)
[2019-06-14] MEDS: PIPERACILLIN/TAZOB 3.375 GM 3.375 GM in DEXTROSE 5%-WATER - 50 ML IVPB SCH (23:46)
[2019-06-15] MEDS ORDERED: PT OWN MED DRAWER 7, Y5N ONE ×4 (01:16→22:01)
[2019-06-15] MEDS: CLINDAMYCIN 300 MG PREMIX IVPB 300 MG/50 ML BAG IVPB SCH ×3 (01:31→17:03)
[2019-06-15] MEDS: ACETAMINOPHEN 325 MG TABLET (FP) PO PRN ×5 (06:57→22:35)
--- NOTE | 2019-06-15 08:31 | PN ---
Progress Note, Physician History of Present Illness: leg still hurting a lot rt leg hurting more than the left erythema much better - Current Medication List Current Medications: Active Medications Acetaminophen (Tylenol -) 650 mg PO Q4H PRN PRN Reason: MODERATE PAIN Last Admin: 06/15/19 06:57 Dose: 650 mg Aspirin (Ecotrin -) 81 mg PO DAILY [facility] Last Admin: 06/14/19 10:23 Dose: 81 mg Diphenhydramine HCl (Benadryl -) 25 mg PO Q6H PRN PRN Reason: FOR ITCHING Last Admin: 06/14/19 22:01 Dose: 25 mg Furosemide (Lasix -) 40 mg PO DAILY [facility] Last Admin: 06/14/19 10:23 Dose: 40 mg Hydromorphone HCl (Dilaudid -) 2 mg PO Q8H PRN PRN Reason: PAIN LEVEL 7 - 10 Clindamycin Phosphate (Cleocin 300 Mg Premix Ivpb) 300 mg in 50 mls @ 100 mls/ hr IVPB Q8H-IV [facility]; Protocol Last Admin: 06/15/19 01:31 Dose: 100 mls/hr Metoprolol Tartrate (Lopressor -) 100 mg PO BID [facility] Last Admin: 06/14/19 22:02 Dose: 100 mg Mycophenolate Mofetil (Cellcept -) 500 mg PO BID [facility] Last Admin: 06/14/19 22:01 Dose: 500 mg Rosuvastatin Calcium (Crestor -) 20 mg PO HS [facility] Last Admin: 06/14/19 22:04 Dose: 20 mg - Objective Vital Signs: Vital Signs Temperature 99.1 F 06/15/19 06:58 Pulse Rate 90 06/15/19 06:58 Respiratory Rate 20 06/15/19 06:58 Blood Pressure 121/55 L 06/15/19 06:58 O2 Sat by Pulse Oximetry (%) 99 06/14/19 22:00 Constitutional: Yes: Calm, Mild Distress Cardiovascular: Yes: S1, S2 Respiratory: Yes: Regular, CTA Bilaterally Gastrointestinal: Yes: Normal Bowel Sounds, Soft Musculoskeletal: Yes: Other Extremities: Yes: Erythema (decreased), Other Neurological: Yes: Alert, Oriented Psychiatric: Yes: Alert, Oriented Labs: CBC, BMP 06/14/19 07:37 06/14/19 07:37 Assessment/Plan 64 yo F with h/o htn vasculitis, hld chf on cellcept for vasculitit here with bilat leg swelling erythema and pain. differential dvt, cellultiis, pt is immunocompromised. left leg cellulitis rash swelling of both legs htn plan continue current mgmt elevation of the leg rest as per the team
[2019-06-15 08:57] LABS: BASO % 0.2 % (0-2.0); EOS % 1.9 % (0-4.5); HEMATOCRIT 39.6 % (32.4-45.2); LYMPH % 6.2 % (8-40); MCH 29.3 pg (25.7-33.7); MCHC 32.9 g/dl (32.0-36.0); MEAN CELL VOLUME 89.1 fl (80-96); MEAN PLT VOLUME 9.8 fl (7.5-11.1); MONO % 3.5 % (3.8-10.2); NEUT % 88.2 % (42.8-82.8); PLATELET COUNT 184 K/MM3 (134-434); RBC 4.45 M/mm3 (3.60-5.2); RDW 13.8 % (11.6-15.6); WHITE BLOOD COUNT 19.1 K/mm3 (4.0-10.0)
[2019-06-15 09:46] LABS: BLOOD UREA NITROGEN 29.4 mg/dL (7-18); CALCIUM 8.5 mg/dL (8.5-10.1); CREATININE 1.8 mg/dL (0.55-1.3); POTASSIUM 3.6 mmol/L (3.5-5.1)
[2019-06-15] MEDS: ASPIRIN COATED 81 MG TABLET.EC PO SCH (09:50)
[2019-06-15] MEDS: diphenhydrAMINE HCL 25 MG CAPSULE (FP) PO PRN (09:50)
[2019-06-15] MEDS: METOPROLOL TARTRATE 50 MG TABLET (FP) PO SCH ×2 (09:51→22:36)
[2019-06-15] MEDS: MYCOPHENOLATE MOFETIL 500 MG TABLET PO SCH ×2 (09:51→22:35)
[2019-06-15] MEDS: FUROSEMIDE 40 MG TABLET (FP) PO SCH (09:51)
--- NOTE | 2019-06-15 10:22 | CONSULT ---
- Consultation REQUESTING PROVIDER: CONSULT REQUEST: We have been asked to surgically evaluate this patient for bilateral Lower extremity cellulitis/vasculitis. PCP: Stan Woods HISTORY OF PRESENT ILLNESS: 64 yo F h/o vasculitis- on cellcept, htn, hld and chf c/o bilat leg swelling and pain. SHe saw pcp Dr. Cain woods last week and he sent her to the ED to r/o dvt. Patient c/o bilat leg pain and ambulates with a cane walker at home. Patient denies cp, sob, f/c or h/o PE. patient staes that her legs are chronically swollen but the left leg looks worse than the right. patient was given vanco and zosyn, and developed a diffuse red, itchy rash over her entire body. - History Source History Provided By: Patient Limitations to Obtaining History: No Limitations - Past Medical History Cardio/Vascular: Yes: CHF, HTN Musculoskeletal: Yes: Other (h/p lt femur fx) Rheumatology: Yes: Other (h/o dvt h/o vasculitis colon kidney legs) Dermatology: Yes: Cellulitis - Past Surgical History Past Surgical History: Yes: Vein Stripping/Ligation - Alcohol/Substance Use Hx Alcohol Use: No - Smoking History Smoking history: Never smoked Have you smoked in the past 12 months: No Home Medications Medication Instructions Recorded Calcium Carbonate/Vitamin D3 1 tab PO DAILY 12/12/15 [Calcium 500 + Vit D 200 Caplet] Iron Ps Complex/B12/Folic Acid 1 cap PO DAILY 12/12/15 [Ferrex 150 Forte Capsule] Metoprolol Tartrate 100 mg PO DAILY 12/12/15 Mycophenolate Mofetil 500 mg PO BID 12/12/15 Alendronate Na [Fosamax] 70 mg PO Q7D 12/16/17 Amlodipine Besylate [Norvasc -] 10 mg PO DAILY 12/16/17 Aspirin 81 mg PO DAILY 12/16/17 Furosemide [Lasix -] 40 mg PO DAILY 06/12/19 Allergies Allergy/AdvReac Type Severity Reaction Status Date / Time No Known Allergies Allergy Verified 12/16/17 13:35 REVIEW OF SYSTEMS: CONSTITUTIONAL: Absent: fever, chills, diaphoresis, generalized weakness, CARDIOVASCULAR: Absent: chest pain, syncope, + peripheral edema RESPIRATORY: Absent: cough, shortness of breath, + dyspnea with exertion, GASTROINTESTINAL: Absent: abdominal distension, nausea, vomiting, MUSCULOSKELETAL: Absent: + myalgia, + arthralgia, SKIN: Absent: + rash, +itching after ABX administered, pallor HEMATOLOGIC/IMMUNOLOGIC: Absent: easy bleeding, easy bruising, NEUROLOGIC: Absent: headache, + unsteady gait, bladder or bowel incontinence PSYCHIATRIC: Absent: anxiety, depression, PHYSICAL EXAM: GENERAL: Obese, Awake, alert, and fully oriented, in no acute distress. HEAD: Normal with no signs of trauma. EYES: sclera anicteric, conjunctiva clear. LUNGS: No auditory wheezes, Unlabored resp on RA, No accessory muscle use. UPPER EXTREMITIES: diffuse red,milliary rash throughout 2/2 drug rxn, B/L UE, warm, well-perfused. No peripheral edema. LOWER EXTREMITIES: diffuse red, milliary rash throughout 2/2 drug rxn, no evidence of open wounds or lesions. right leg with cellulitis extending over lateral calf tracking anteriorly, b/l compartments soft, supple and non-tender with chronic skin changes seen over ankles and feet, +1 DP pulses, warm, well- perfused. full rom of all toes. Left LE with several well healed scars, NEUROLOGICAL: Normal speech, gait not observed. PSYCH: Cooperative. Good eye contact. Appropriate mood and affect. SKIN: Warm, dry, normal turgor Vital Signs Temperature 99.1 F 06/15/19 06:58 Pulse Rate 90 06/15/19 06:58 Respiratory Rate 20 06/15/19 06:58 Blood Pressure 121/55 L 06/15/19 06:58 O2 Sat by Pulse Oximetry (%) 99 06/14/19 22:00 Lab Results WBC 19.1 K/mm3 (4.0-10.0) H 06/15/19 07:40 RBC 4.45 M/mm3 (3.60-5.2) 06/15/19 07:40 Hgb 13.0 GM/dL (10.7-15.3) 06/15/19 07:40 Hct 39.6 % (32.4-45.2) 06/15/19 07:40 MCV 89.1 fl (80-96) 06/15/19 07:40 MCHC 32.9 g/dl (32.0-36.0) 06/15/19 07:40 RDW 13.8 % (11.6-15.6) 06/15/19 07:40 Plt Count 184 K/MM3 (134-434) 06/15/19 07:40 Sodium 138 mmol/L (136-145) 06/15/19 07:40 Potassium 3.6 mmol/L (3.5-5.1) 06/15/19 07:40 Chloride 105 mmol/L (98-107) 06/15/19 07:40 Carbon Dioxide 24 mmol/L (21-32) 06/15/19 07:40 Anion Gap 9 MMOL/L (8-16) 06/15/19 07:40 BUN 29.4 mg/dL (7-18) H 06/15/19 07:40 Creatinine 1.8 mg/dL (0.55-1.3) H 06/15/19 07:40 Random Glucose 118 mg/dL (74-106) H 06/15/19 07:40 Calcium 8.5 mg/dL (8.5-10.1) 06/15/19 07:40 B/L LE dopplers 06/12/19 revealed no evidence of DVT Problem List - Problems (1) Cellulitis Assessment/Plan: 64 yo female with chronic venous stasis presents with cellulitis and vasculitis with palpable distal pulses and no evidence for vascular intervention. 1) IV ABX per ID 2) compressive abraham wrap to b/l LE 3) Elevate LE when in bed 4) Offload pressure sensitive areas. 5) Re-consult vascul surgery PRN Evaluation and plan discussed with Dr Vidal Code(s): L03.90 - CELLULITIS, UNSPECIFIED
--- NOTE | 2019-06-15 11:38 | PN ---
Progress Note, Physician Chief Complaint: legs n/c vasc appretciated vss agree w copresive stockungs - Current Medication List Current Medications: Active Medications Acetaminophen (Tylenol -) 650 mg PO Q4H PRN PRN Reason: MODERATE PAIN Last Admin: 06/15/19 11:08 Dose: 650 mg Aspirin (Ecotrin -) 81 mg PO DAILY [facility] Last Admin: 06/15/19 09:50 Dose: 81 mg Diphenhydramine HCl (Benadryl -) 25 mg PO Q6H PRN PRN Reason: FOR ITCHING Last Admin: 06/15/19 09:50 Dose: 25 mg Furosemide (Lasix -) 40 mg PO DAILY [facility] Last Admin: 06/15/19 09:51 Dose: 40 mg Hydromorphone HCl (Dilaudid -) 2 mg PO Q8H PRN PRN Reason: PAIN LEVEL 7 - 10 Clindamycin Phosphate (Cleocin 300 Mg Premix Ivpb) 300 mg in 50 mls @ 100 mls/ hr IVPB Q8H-IV [facility]; Protocol Last Admin: 06/15/19 09:51 Dose: 100 mls/hr Metoprolol Tartrate (Lopressor -) 100 mg PO BID [facility] Last Admin: 06/15/19 09:51 Dose: 100 mg Mycophenolate Mofetil (Cellcept -) 500 mg PO BID [facility] Last Admin: 06/15/19 09:51 Dose: 500 mg Rosuvastatin Calcium (Crestor -) 20 mg PO HS [facility] Last Admin: 06/14/19 22:04 Dose: 20 mg - Objective Vital Signs: Vital Signs Temperature 99.1 F 06/15/19 06:58 Pulse Rate 90 06/15/19 06:58 Respiratory Rate 20 06/15/19 06:58 Blood Pressure 121/55 L 06/15/19 06:58 O2 Sat by Pulse Oximetry (%) 99 06/14/19 22:00 Labs: CBC, BMP 06/15/19 07:40 06/15/19 07:40
[2019-06-15 14:10] LABS: ANISOCYTOSIS 0; MACROCYTOSIS 0; PLATELET ESTIMATE NORMAL
[2019-06-15] MEDS: DEXTROSE 5%-0.45% SALINE 1,000 ML IV SCH (17:02)
--- NOTE | 2019-06-15 17:39 | PN ---
Progress Note (short form) - Note Progress Note: Pt seen and examined. In short she is a 64 year old female with a history of acute on chronic cellulitis. She also c/o severe pain in the right hip for many years. She denies any recent trauma involving the right hip. PE Right hip with decreased ROM in all planes RLE is grossly NVI, except she has signs of chronic venous insufficiency, tightly swollen legs, especially below the knees, and LE cellulitis. X-rays Right hip-show severe, Grade IV OA Imp 64 year old F pt with Grade IV OA right hip in the setting of acute on chronic lower extremity cellulitis. Rec If she is completely rid of the cellulitis for atleast 3 months we would consider doing a right THR surgery. In the meantime, maximize her function with physical therapy.
[2019-06-15] MEDS: ROSUVASTATIN CA 20 MG TABLET (FP) PO SCH (22:35)
[2019-06-16] MEDS ORDERED: PT OWN MED DRAWER 7, Y5N ONE ×3 (01:47→22:29)
[2019-06-16] MEDS: CLINDAMYCIN 300 MG PREMIX IVPB 300 MG/50 ML BAG IVPB SCH ×2 (01:58→10:09)
[2019-06-16 07:52] LABS: BASO % 0.3 % (0-2.0); EOS % 2.7 % (0-4.5); HEMATOCRIT 37.9 % (32.4-45.2); HEMOGLOBIN 12.3 GM/dL (10.7-15.3); LYMPH % 7.2 % (8-40); MCH 29.5 pg (25.7-33.7); MCHC 32.4 g/dl (32.0-36.0); MEAN CELL VOLUME 90.9 fl (80-96); MONO % 3.7 % (3.8-10.2); NEUT % 86.1 % (42.8-82.8); RBC 4.17 M/mm3 (3.60-5.2); RDW 13.8 % (11.6-15.6); WHITE BLOOD COUNT 18.1 K/mm3 (4.0-10.0)
[2019-06-16 08:12] LABS: BLOOD UREA NITROGEN 27.9 mg/dL (7-18); CALCIUM 7.6 mg/dL (8.5-10.1); CREATININE 1.6 mg/dL (0.55-1.3); POTASSIUM 3.9 mmol/L (3.5-5.1)
[2019-06-16] MEDS: ACETAMINOPHEN 325 MG TABLET (FP) PO PRN ×3 (08:33→22:30)
[2019-06-16] MEDS: DEXTROSE 5%-0.45% SALINE 1,000 ML IV SCH ×2 (08:34→22:31)
[2019-06-16 09:30] LABS: PLATELET COUNT 132 K/MM3 (134-434)
[2019-06-16] MEDS: FUROSEMIDE 40 MG TABLET (FP) PO SCH (10:09)
[2019-06-16] MEDS: ASPIRIN COATED 81 MG TABLET.EC PO SCH (10:09)
[2019-06-16] MEDS: diphenhydrAMINE HCL 25 MG CAPSULE (FP) PO PRN (10:09)
[2019-06-16] MEDS: MYCOPHENOLATE MOFETIL 500 MG TABLET PO SCH ×2 (10:09→22:29)
[2019-06-16] MEDS: METOPROLOL TARTRATE 50 MG TABLET (FP) PO SCH (10:10)
--- NOTE | 2019-06-16 10:41 | PN ---
Progress Note, Physician Chief Complaint: ortho apreciated temp nl today nl bm diet ok crying ? rash not gone but blanches - Current Medication List Current Medications: Active Medications Acetaminophen (Tylenol -) 650 mg PO Q4H PRN PRN Reason: MODERATE PAIN Last Admin: 06/16/19 08:33 Dose: 650 mg Aspirin (Ecotrin -) 81 mg PO DAILY [facility] Last Admin: 06/16/19 10:09 Dose: 81 mg Hydromorphone HCl (Dilaudid -) 2 mg PO Q8H PRN PRN Reason: PAIN LEVEL 7 - 10 Clindamycin Phosphate (Cleocin 300 Mg Premix Ivpb) 300 mg in 50 mls @ 100 mls/ hr IVPB Q8H-IV [facility]; Protocol Last Admin: 06/16/19 10:09 Dose: 100 mls/hr Dextrose/Sodium Chloride (D5-1/2ns -) 1,000 mls @ 75 mls/hr IV ASDIR [facility] Last Admin: 06/16/19 08:34 Dose: 75 mls/hr Mycophenolate Mofetil (Cellcept -) 500 mg PO BID [facility] Last Admin: 06/16/19 10:09 Dose: 500 mg Rosuvastatin Calcium (Crestor -) 20 mg PO HS [facility] Last Admin: 06/15/19 22:35 Dose: 20 mg - Objective Vital Signs: Vital Signs Temperature 98.3 F 06/16/19 06:24 Pulse Rate 109 H 06/16/19 06:24 Respiratory Rate 20 06/16/19 06:24 Blood Pressure 90/34 L 06/16/19 06:24 O2 Sat by Pulse Oximetry (%) 95 06/15/19 21:00 Constitutional: Yes: Well Nourished Eyes: Yes: WNL HENT: Yes: WNL Cardiovascular: Yes: WNL Respiratory: Yes: WNL, Stridor ...Rectal Exam: Yes: Deferred Genitourinary: Yes: WNL Breast(s): Yes: WNL Musculoskeletal: Yes: WNL Extremities: Yes: Erythema Edema: Yes Edema: LLE: 1+, RLE: 1+ Integumentary: Yes: WNL Neurological: Yes: WNL ...Motor Strength: WNL Psychiatric: Yes: Agitated Labs: CBC, BMP 06/16/19 06:20 06/16/19 06:20 Assessment/Plan steroids iv d/c bp med due low bp hold lasix id to see clindamycin rash related ? derm if n/c d/c benadryl? lower bp
[2019-06-16 11:56] LABS: ANISOCYTOSIS 0; MACROCYTOSIS 0; PLATELET ESTIMATE DECREASED
--- NOTE | 2019-06-16 12:49 | PN ---
Progress Note, Physician History of Present Illness: patient still not feeling very well events noted from yesterday hypotensive rash still present wbc has jumped up - Current Medication List Current Medications: Active Medications Acetaminophen (Tylenol -) 650 mg PO Q4H PRN PRN Reason: MODERATE PAIN Last Admin: 06/16/19 08:33 Dose: 650 mg Aspirin (Ecotrin -) 81 mg PO DAILY [facility] Last Admin: 06/16/19 10:09 Dose: 81 mg Hydromorphone HCl (Dilaudid -) 2 mg PO Q8H PRN PRN Reason: PAIN LEVEL 7 - 10 Dextrose/Sodium Chloride (D5-1/2ns -) 1,000 mls @ 75 mls/hr IV ASDIR [facility] Last Admin: 06/16/19 08:34 Dose: 75 mls/hr Cefepime HCl 1 gm/ Dextrose 100 mls @ 200 mls/hr IVPB Q8H-IV [facility]; Protocol Methylprednisolone Sodium Succinate (Solu-Medrol -) 40 mg IVPUSH Q6H-IV [facility] Mycophenolate Mofetil (Cellcept -) 500 mg PO BID [facility] Last Admin: 06/16/19 10:09 Dose: 500 mg Rosuvastatin Calcium (Crestor -) 20 mg PO HS [facility] Last Admin: 06/15/19 22:35 Dose: 20 mg - Objective Vital Signs: Vital Signs Temperature 98.3 F 06/16/19 06:24 Pulse Rate 109 H 06/16/19 06:24 Respiratory Rate 20 06/16/19 06:24 Blood Pressure 90/34 L 06/16/19 06:24 O2 Sat by Pulse Oximetry (%) 95 06/15/19 21:00 Constitutional: Yes: No Distress, Calm Cardiovascular: Yes: Regular Rate and Rhythm Respiratory: Yes: Regular, CTA Bilaterally Musculoskeletal: Yes: WNL Extremities: Yes: Erythema (improving), Other Integumentary: Yes: Rash Neurological: Yes: Alert, Oriented Labs: CBC, BMP 06/16/19 06:20 06/16/19 06:20 Assessment/Plan 64 yo F with h/o htn vasculitis, hld chf on cellcept for vasculitit here with bilat leg swelling erythema and pain. differential dvt, cellultiis, pt is immunocompromised. left leg cellulitis rash swelling of both legs htn sepsis leukocytosis plan will stop clinda will switch to cefepime monitor wbc monitor rash close watch rest as per the team
[2019-06-16] MEDS ORDERED: CEFEPIME HCL 1 GM VIAL (RESTRICTED TO ID) ONE ×2 (13:07→17:38)
[2019-06-16] MEDS ORDERED: DEXTROSE 5%-WATER 100 ML IVPB ONE ×2 (13:08→17:38)
[2019-06-16] MEDS: CEFEPIME 1 GM in DEXTROSE 5%-WATER 100 ML IVPB SCH ×2 (13:18→17:41)
[2019-06-16] MEDS: methylPREDNISolone NA SUCC 40 MG/1 ML VIAL IVPUSH SCH ×2 (14:39→21:26)
--- NOTE | 2019-06-16 14:43 | EKG ---
Test Reason : Blood Pressure : / mmHG Vent. Rate : 096 BPM Atrial Rate : 096 BPM P-R Int : 154 ms QRS Dur : 078 ms QT Int : 352 ms P-R-T Axes : 030 019 029 degrees QTc Int : 444 ms NORMAL SINUS RHYTHM NORMAL ECG WHEN COMPARED WITH ECG OF 12-JUN-2019 17:00, NO SIGNIFICANT CHANGE WAS FOUND Confirmed by Faisal Kam MD ([id number]) on 06/16/2019 2:43:19 PM Referred By: Confirmed By:Faisal Kam MD
[2019-06-16] MEDS ORDERED: HYDROmorphone HCL 2 MG TABLET PO PRN (14:46)
--- NOTE | 2019-06-16 16:00 | PN ---
Progress Note (short form) - Note Progress Note: No change. The pt has severe hip OA, but also has [id number] cellulitis, which is a contra indication for doing hip replacement surgery. We will follow as needed, perhaps as an out patient.
--- NOTE | 2019-06-16 16:20 | ECHO ---
Version: 1 Name: ÁNGEL JONES Exam: Adult Echocardiogram Study Date: 06/16/2019, 1:53 PM Age: 64 Years MMode/2D Measurements & Calculations IVSd: 0.93 cm LVIDs: 2.9 cm LVIDd: 4.2 cm LVPWd: 0.76 cm LVOT diam: 1.96 cm Ao root diam: 2.48 cm LA dimension: 3.3 cm Doppler Measurements & Calculations MV E max alfonzo: 80.5 cm/sec Med E/e': 8.3 MV A max alfonzo: 100.7 cm/sec Med Peak E' Alfonzo: 9.7 cm/sec MV E/A: 0.80 Lat E/e': 15.5 Lat Peak E' Alfonzo: 5.2 cm/sec Ao max P.3 mmHg ALEXANDRO(I,D): 1.91 cm Ao mean P.7 mmHg LV V1 mean: 110.4 cm/sec Ao V2 max: 230.8 cm/sec LV V1 mean P.4 mmHg TR max alfonzo: 274.5 cm/sec TR max P.1 mmHg Procedure A two-dimensional transthoracic echocardiogram with color flow and Doppler was performed in limited views only. Left Ventricle The left ventricle is grossly normal size. The left ventricle is hyperdynamic. Ejection Fraction = 7 5-80%. The transmitral spectral Doppler flow pattern is suggestive of impaired LV relaxation. Right Ventricle The right ventricle is normal in size and function. Atria Normal left and right atrial size and function. Mitral Valve The mitral valve is not well visualized. Tricuspid Valve The tricuspid valve is not well visualized. There was insufficient TR detected to calculate RV systo lic pressure. Aortic Valve There is mild to moderate aortic sclerosis.;. No hemodynamically significant valvular aortic stenosi s. Pulmonic Valve The pulmonic valve is not well visualized. Great Vessels The aortic root is not well visualized. Pericardium/Pleura There is no pericardial effusion. Summary Statements A two-dimensional transthoracic echocardiogram with color flow and Doppler was performed in limited views only. The left ventricle is grossly normal size. The left ventricle is hyperdynamic. The transmitral spectral Doppler flow pattern is suggestive of impaired LV relaxation. The right ventricle is normal in size and function. Normal left and right atrial size and function. There is mild to moderate aortic sclerosis.; No hemodynamically significant valvular aortic stenosis. 06/16/2019, 3:19 MD Mandy Drew PM Ordering Physician: Stan Genao Referring Physician: STAN GENAO Performed By: Anahy Wilde
[2019-06-16] MEDS: ROSUVASTATIN CA 20 MG TABLET (FP) PO SCH (22:26)
[2019-06-17] MEDS ORDERED: CEFEPIME HCL 1 GM VIAL (RESTRICTED TO ID) ONE ×4 (02:01→16:32)
[2019-06-17] MEDS ORDERED: DEXTROSE 5%-WATER 100 ML IVPB ONE ×4 (02:01→16:32)
[2019-06-17] MEDS: CEFEPIME 1 GM in DEXTROSE 5%-WATER 100 ML IVPB SCH ×3 (02:30→17:05)
[2019-06-17] MEDS: methylPREDNISolone NA SUCC 40 MG/1 ML VIAL IVPUSH SCH ×4 (02:30→21:35)
[2019-06-17] MEDS: ACETAMINOPHEN 325 MG TABLET (FP) PO PRN ×4 (02:30→19:56)
[2019-06-17] MEDS: MYCOPHENOLATE MOFETIL 500 MG TABLET PO SCH ×2 (09:06→21:35)
[2019-06-17] MEDS: ASPIRIN COATED 81 MG TABLET.EC PO SCH (09:06)
[2019-06-17] MEDS: DEXTROSE 5%-0.45% SALINE 1,000 ML IV SCH ×2 (09:07→17:00)
[2019-06-17 09:15] LABS: BASO % 0.1 % (0-2.0); HEMATOCRIT 34.1 % (32.4-45.2); HEMOGLOBIN 11.1 GM/dL (10.7-15.3); LYMPH % 5.1 % (8-40); MCHC 32.6 g/dl (32.0-36.0); MEAN PLT VOLUME 9.7 fl (7.5-11.1); MONO % 1.7 % (3.8-10.2); NEUT % 93.1 % (42.8-82.8); PLATELET COUNT 161 K/MM3 (134-434); RBC 3.83 M/mm3 (3.60-5.2); RDW 13.6 % (11.6-15.6); WHITE BLOOD COUNT 16.4 K/mm3 (4.0-10.0)
--- NOTE | 2019-06-17 09:18 | PN ---
Progress Note (short form) - Note Progress Note: Pt with severe HIP OA. When/if her chronic LE cellulitis resolves for atleast 3 months, we would consider doing an elective right THR. Until then there is NTD from an orthopedic pov.
[2019-06-17 09:35] LABS: BLOOD UREA NITROGEN 28.1 mg/dL (7-18); CALCIUM 7.6 mg/dL (8.5-10.1); CREATININE 1.4 mg/dL (0.55-1.3); POTASSIUM 3.3 mmol/L (3.5-5.1)
--- NOTE | 2019-06-17 12:43 | PN ---
Progress Note, Physician History of Present Illness: still does not feel good left leg still warm wbc trending down - Current Medication List Current Medications: Active Medications Acetaminophen (Tylenol -) 650 mg PO Q4H PRN PRN Reason: MODERATE PAIN Last Admin: 06/17/19 09:05 Dose: 650 mg Aspirin (Ecotrin -) 81 mg PO DAILY [facility] Last Admin: 06/17/19 09:06 Dose: 81 mg Hydromorphone HCl (Dilaudid -) 2 mg PO Q6H PRN PRN Reason: PAIN LEVEL 7 - 10 Stop: 06/19/19 14:45 Last Admin: 06/16/19 15:01 Dose: 2 mg Dextrose/Sodium Chloride (D5-1/2ns -) 1,000 mls @ 75 mls/hr IV ASDIR [facility] Last Admin: 06/17/19 09:07 Dose: 75 mls/hr Cefepime HCl 1 gm/ Dextrose 100 mls @ 200 mls/hr IVPB Q8H-IV [facility]; Protocol Last Admin: 06/17/19 09:07 Dose: 200 mls/hr Methylprednisolone Sodium Succinate (Solu-Medrol -) 40 mg IVPUSH Q6H-IV [facility] Last Admin: 06/17/19 09:06 Dose: 40 mg Mycophenolate Mofetil (Cellcept -) 500 mg PO BID [facility] Last Admin: 06/17/19 09:06 Dose: 500 mg Rosuvastatin Calcium (Crestor -) 20 mg PO HS [facility] Last Admin: 06/16/19 22:26 Dose: 20 mg - Objective Vital Signs: Vital Signs Temperature 98 F 06/17/19 10:00 Pulse Rate 101 H 06/17/19 10:00 Respiratory Rate 20 06/17/19 10:00 Blood Pressure 120/71 06/17/19 10:00 O2 Sat by Pulse Oximetry (%) 99 06/17/19 09:00 Constitutional: Yes: Calm, Mild Distress Cardiovascular: Yes: S1, S2 Respiratory: Yes: Regular, CTA Bilaterally Gastrointestinal: Yes: Normal Bowel Sounds, Soft Musculoskeletal: Yes: WNL Extremities: Yes: Erythema (left leg), Other Neurological: Yes: Alert, Oriented Psychiatric: Yes: Alert, Oriented Labs: CBC, BMP 06/17/19 07:50 06/17/19 07:50 Assessment/Plan 64 yo F with h/o htn vasculitis, hld chf on cellcept for vasculitit here with bilat leg swelling erythema and pain. differential dvt, cellultiis, pt is immunocompromised. left leg cellulitis rash swelling of both legs htn sepsis leukocytosis plan continue cefepime monitor wbc close watch elevation of leg rest as per the team
[2019-06-17 13:47] LABS: ANISOCYTOSIS 0; MACROCYTOSIS 0; PLATELET ESTIMATE NORMAL
--- NOTE | 2019-06-17 14:23 | PN ---
Progress Note, Physician Chief Complaint: gerd bm nl legs n/c anxios to leeve - Current Medication List Current Medications: Active Medications Acetaminophen (Tylenol -) 650 mg PO Q4H PRN PRN Reason: MODERATE PAIN Last Admin: 06/17/19 13:47 Dose: 650 mg Aspirin (Ecotrin -) 81 mg PO DAILY [facility] Last Admin: 06/17/19 09:06 Dose: 81 mg Hydromorphone HCl (Dilaudid -) 2 mg PO Q6H PRN PRN Reason: PAIN LEVEL 7 - 10 Stop: 06/19/19 14:45 Last Admin: 06/16/19 15:01 Dose: 2 mg Dextrose/Sodium Chloride (D5-1/2ns -) 1,000 mls @ 75 mls/hr IV ASDIR [facility] Last Admin: 06/17/19 09:07 Dose: 75 mls/hr Cefepime HCl 1 gm/ Dextrose 100 mls @ 200 mls/hr IVPB Q8H-IV [facility]; Protocol Last Admin: 06/17/19 09:07 Dose: 200 mls/hr Methylprednisolone Sodium Succinate (Solu-Medrol -) 40 mg IVPUSH Q6H-IV [facility] Last Admin: 06/17/19 09:06 Dose: 40 mg Mycophenolate Mofetil (Cellcept -) 500 mg PO BID [facility] Last Admin: 06/17/19 09:06 Dose: 500 mg Rosuvastatin Calcium (Crestor -) 20 mg PO HS [facility] Last Admin: 06/16/19 22:26 Dose: 20 mg - Objective Vital Signs: Vital Signs Temperature 98 F 06/17/19 10:00 Pulse Rate 101 H 06/17/19 10:00 Respiratory Rate 20 06/17/19 10:00 Blood Pressure 120/71 06/17/19 10:00 O2 Sat by Pulse Oximetry (%) 99 06/17/19 09:00 Constitutional: Yes: Well Nourished Eyes: Yes: WNL HENT: Yes: WNL Neck: Yes: WNL Cardiovascular: Yes: WNL Respiratory: Yes: WNL Gastrointestinal: Yes: WNL ...Rectal Exam: Yes: Deferred Genitourinary: Yes: WNL Breast(s): Yes: WNL Musculoskeletal: Yes: WNL Extremities: Yes: Erythema Edema: Yes Edema: LLE: 1+, RLE: 1+ Peripheral Pulses WNL: Yes Integumentary: Yes: Venous Stasis Changes Neurological: Yes: WNL ...Motor Strength: WNL Psychiatric: Yes: WNL Labs: CBC, BMP 06/17/19 07:50 06/17/19 07:50 Assessment/Plan cont steroids ppi given pneumatic device? ? d/c yo sprain mano nh
[2019-06-17] MEDS: ROSUVASTATIN CA 20 MG TABLET (FP) PO SCH (21:35)
[2019-06-18] MEDS ORDERED: DEXTROSE 5%-WATER 100 ML IVPB ONE ×4 (01:12→21:28)
[2019-06-18] MEDS ORDERED: CEFEPIME HCL 1 GM VIAL (RESTRICTED TO ID) ONE ×4 (01:12→21:28)
[2019-06-18] MEDS: CEFEPIME 1 GM in DEXTROSE 5%-WATER 100 ML IVPB SCH ×3 (01:19→17:19)
[2019-06-18] MEDS: methylPREDNISolone NA SUCC 40 MG/1 ML VIAL IVPUSH SCH ×3 (02:57→17:20)
[2019-06-18] MEDS: DEXTROSE 5%-0.45% SALINE 1,000 ML IV SCH ×2 (02:58→17:20)
[2019-06-18] MEDS: ACETAMINOPHEN 325 MG TABLET (FP) PO PRN ×2 (06:22→13:19)
[2019-06-18 07:56] LABS: BASO % 0.1 % (0-2.0); EOS % 0.1 % (0-4.5); HEMATOCRIT 32.6 % (32.4-45.2); HEMOGLOBIN 10.6 GM/dL (10.7-15.3); LYMPH % 7.7 % (8-40); MCH 29.1 pg (25.7-33.7); MCHC 32.6 g/dl (32.0-36.0); MEAN CELL VOLUME 89.5 fl (80-96); MEAN PLT VOLUME 9.6 fl (7.5-11.1); MONO % 3.7 % (3.8-10.2); NEUT % 88.4 % (42.8-82.8); RBC 3.65 M/mm3 (3.60-5.2); RDW 13.7 % (11.6-15.6); WHITE BLOOD COUNT 14.2 K/mm3 (4.0-10.0)
[2019-06-18 08:25] LABS: PLATELET COUNT 190 K/MM3 (134-434)
[2019-06-18] MEDS ORDERED: POTASSIUM CHLORIDE ORAL LIQUID 20 MEQ/15 ML PO ONE (09:00)
[2019-06-18 09:39] LABS: ANISOCYTOSIS 0; MACROCYTOSIS 0; PLATELET ESTIMATE NORMAL
[2019-06-18] MEDS: MYCOPHENOLATE MOFETIL 500 MG TABLET PO SCH ×2 (10:43→21:33)
[2019-06-18] MEDS: ASPIRIN COATED 81 MG TABLET.EC PO SCH (10:44)
[2019-06-18] MEDS: PANTOPRAZOLE SOD 40 MG SUSPENSION PACKET PO SCH (10:45)
--- NOTE | 2019-06-18 10:52 | PN ---
Progress Note, Physician Chief Complaint: water weeoping from rt >lt legs chong mortensen no d/c yet - Current Medication List Current Medications: Active Medications Acetaminophen (Tylenol -) 650 mg PO Q4H PRN PRN Reason: MODERATE PAIN Last Admin: 06/18/19 06:22 Dose: 650 mg Aspirin (Ecotrin -) 81 mg PO DAILY [facility] Last Admin: 06/17/19 09:06 Dose: 81 mg Hydromorphone HCl (Dilaudid -) 2 mg PO Q6H PRN PRN Reason: PAIN LEVEL 7 - 10 Stop: 06/19/19 14:45 Last Admin: 06/16/19 15:01 Dose: 2 mg Dextrose/Sodium Chloride (D5-1/2ns -) 1,000 mls @ 75 mls/hr IV ASDIR [facility] Last Admin: 06/18/19 02:58 Dose: 75 mls/hr Cefepime HCl 1 gm/ Dextrose 100 mls @ 200 mls/hr IVPB Q8H-IV [facility]; Protocol Last Admin: 06/18/19 01:19 Dose: 200 mls/hr Methylprednisolone Sodium Succinate (Solu-Medrol -) 40 mg IVPUSH Q6H-IV [facility] Last Admin: 06/18/19 02:57 Dose: 40 mg Mycophenolate Mofetil (Cellcept -) 500 mg PO BID [facility] Last Admin: 06/17/19 21:35 Dose: 500 mg Pantoprazole Sodium (Protonix Packets For Oral Suspension -) 40 mg PO DAILY [facility] Rosuvastatin Calcium (Crestor -) 20 mg PO HS [facility] Last Admin: 06/17/19 21:35 Dose: 20 mg - Objective Vital Signs: Vital Signs Temperature 98.5 F 06/18/19 05:45 Pulse Rate 86 06/18/19 05:45 Respiratory Rate 20 06/18/19 05:45 Blood Pressure 154/81 06/18/19 05:45 O2 Sat by Pulse Oximetry (%) 98 06/17/19 20:00 Constitutional: Yes: Well Nourished Eyes: Yes: WNL HENT: Yes: WNL Neck: Yes: WNL, Tenderness Respiratory: Yes: WNL Gastrointestinal: Yes: Other (gerd) ...Rectal Exam: Yes: Deferred, Sphincter Tone Normal Genitourinary: Yes: WNL Breast(s): Yes: WNL Musculoskeletal: Yes: WNL Extremities: Yes: Erythema Edema: Yes Edema: LLE: 2+, RLE: 3+ Peripheral Pulses WNL: Yes Integumentary: Yes: Venous Stasis Changes ...Motor Strength: WNL Psychiatric: Yes: WNL Labs: CBC, BMP 06/18/19 06:45 06/17/19 07:50 Assessment/Plan abraham wraps repeat cristi leg doplers cxr
[2019-06-18] MEDS ORDERED: methylPREDNISolone NA SUCC 1000 MG/8 ML VIAL IVPB ONE (12:15)
--- NOTE | 2019-06-18 13:02 | PN ---
Progress Note, Physician History of Present Illness: starting to feel better leg looking better patient developed blisters on rt leg which ruptured - Current Medication List Current Medications: Active Medications Acetaminophen (Tylenol -) 650 mg PO Q4H PRN PRN Reason: MODERATE PAIN Last Admin: 06/18/19 06:22 Dose: 650 mg Aspirin (Ecotrin -) 81 mg PO DAILY [facility] Last Admin: 06/18/19 10:44 Dose: 81 mg Hydromorphone HCl (Dilaudid -) 2 mg PO Q6H PRN PRN Reason: PAIN LEVEL 7 - 10 Stop: 06/19/19 14:45 Last Admin: 06/16/19 15:01 Dose: 2 mg Dextrose/Sodium Chloride (D5-1/2ns -) 1,000 mls @ 75 mls/hr IV ASDIR [facility] Last Admin: 06/18/19 02:58 Dose: 75 mls/hr Cefepime HCl 1 gm/ Dextrose 100 mls @ 200 mls/hr IVPB Q8H-IV [facility]; Protocol Last Admin: 06/18/19 10:44 Dose: 200 mls/hr Mycophenolate Mofetil (Cellcept -) 500 mg PO BID [facility] Last Admin: 06/18/19 10:43 Dose: 500 mg Pantoprazole Sodium (Protonix Packets For Oral Suspension -) 40 mg PO DAILY [facility] Last Admin: 06/18/19 10:45 Dose: 40 mg Rosuvastatin Calcium (Crestor -) 20 mg PO HS [facility] Last Admin: 06/17/19 21:35 Dose: 20 mg - Objective Vital Signs: Vital Signs Temperature 98.5 F 06/18/19 05:45 Pulse Rate 86 06/18/19 05:45 Respiratory Rate 20 06/18/19 05:45 Blood Pressure 154/81 06/18/19 05:45 O2 Sat by Pulse Oximetry (%) 98 06/17/19 20:00 Constitutional: Yes: Calm, Mild Distress Cardiovascular: Yes: S1, S2 Respiratory: Yes: Regular, CTA Bilaterally Gastrointestinal: Yes: Normal Bowel Sounds, Soft Musculoskeletal: Yes: WNL Extremities: Yes: Erythema (improving on the rt left blisters) Neurological: Yes: Alert, Oriented Psychiatric: Yes: Alert, Oriented Labs: CBC, BMP 06/18/19 06:45 06/17/19 07:50 Assessment/Plan 64 yo F with h/o htn vasculitis, hld chf on cellcept for vasculitit here with bilat leg swelling erythema and pain. differential dvt, cellultiis, pt is immunocompromised. left leg cellulitis rash swelling of both legs htn sepsis leukocytosis plan continue cefepime will add doxy
--- NOTE | 2019-06-18 15:16 | EKG ---
Test Reason : Blood Pressure : / mmHG Vent. Rate : 100 BPM Atrial Rate : 100 BPM P-R Int : 148 ms QRS Dur : 072 ms QT Int : 362 ms P-R-T Axes : 033 029 038 degrees QTc Int : 466 ms POOR DATA QUALITY, INTERPRETATION MAY BE ADVERSELY AFFECTED NORMAL SINUS RHYTHM NORMAL ECG WHEN COMPARED WITH ECG OF 15-JUN-2019 15:20, NO SIGNIFICANT CHANGE WAS FOUND Confirmed by GURVINDER JOHN, DAMON ([id number]) on 06/18/2019 3:16:15 PM Referred By: Confirmed By:DAMON HOLLINS MD
[2019-06-18] MEDS: MAG HYDROX/AL HYDROX/SIMETH -MYLANTA- ORAL SUSPENSION PO SCH ×2 (17:21→18:38)
[2019-06-18] MEDS ORDERED: MAG HYDROX/AL HYDROX/SIMETH 30 ML UNIT-DOSE CUP PO SCH (18:30)
[2019-06-18] MEDS: MAG HYDROX/AL HYDROX/SIMETH 30 ML UNIT-DOSE CUP PO SCH (18:36)
[2019-06-18] MEDS: DOXYCYCLINE HYCLATE 100 MG CAPSULE PO SCH (18:36)
[2019-06-18] MEDS: ROSUVASTATIN CA 20 MG TABLET (FP) PO SCH (21:33)
[2019-06-19] MEDS: CEFEPIME 1 GM in DEXTROSE 5%-WATER 100 ML IVPB SCH ×3 (01:27→17:14)
[2019-06-19] MEDS: methylPREDNISolone NA SUCC 40 MG/1 ML VIAL IVPUSH SCH ×3 (01:28→17:15)
[2019-06-19] MEDS: DEXTROSE 5%-0.45% SALINE 1,000 ML IV SCH (06:58)
[2019-06-19] MEDS: MAG HYDROX/AL HYDROX/SIMETH 30 ML UNIT-DOSE CUP PO SCH ×5 (06:59→23:35)
[2019-06-19 07:59] LABS: BASO % 0.5 % (0-2.0); EOS % 0.1 % (0-4.5); HEMATOCRIT 32.6 % (32.4-45.2); HEMOGLOBIN 10.8 GM/dL (10.7-15.3); LYMPH % 13.6 % (8-40); MCH 29.5 pg (25.7-33.7); MCHC 33.2 g/dl (32.0-36.0); MEAN CELL VOLUME 88.9 fl (80-96); MEAN PLT VOLUME 9.2 fl (7.5-11.1); MONO % 5.3 % (3.8-10.2); NEUT % 80.5 % (42.8-82.8); PLATELET COUNT 180 K/MM3 (134-434); RBC 3.67 M/mm3 (3.60-5.2); RDW 13.8 % (11.6-15.6); WHITE BLOOD COUNT 10.2 K/mm3 (4.0-10.0)
[2019-06-19 08:28] LABS: BLOOD UREA NITROGEN 33.2 mg/dL (7-18); CALCIUM 7.8 mg/dL (8.5-10.1); CREATININE 1.2 mg/dL (0.55-1.3)
[2019-06-19] MEDS ORDERED: DEXTROSE 5%-WATER 100 ML IVPB ONE ×2 (09:23→16:31)
[2019-06-19] MEDS ORDERED: CEFEPIME HCL 1 GM VIAL (RESTRICTED TO ID) ONE ×2 (09:23→16:31)
[2019-06-19] MEDS: PANTOPRAZOLE SOD 40 MG SUSPENSION PACKET PO SCH (09:28)
[2019-06-19] MEDS: ASPIRIN COATED 81 MG TABLET.EC PO SCH (09:28)
[2019-06-19] MEDS: DOXYCYCLINE HYCLATE 100 MG CAPSULE PO SCH ×2 (09:28→17:15)
[2019-06-19] MEDS: ACETAMINOPHEN 325 MG TABLET (FP) PO PRN (09:31)
[2019-06-19 09:41] LABS: ANISOCYTOSIS 0; MACROCYTOSIS 0; PLATELET ESTIMATE NORMAL
[2019-06-19] MEDS ORDERED: PT OWN MED DRAWER 7, Y5N ONE (09:48)
[2019-06-19] MEDS: MYCOPHENOLATE MOFETIL 500 MG TABLET PO SCH ×2 (10:42→21:11)
[2019-06-19 13:15] VITALS: BMI 38.4
--- NOTE | 2019-06-19 13:28 | PN ---
Progress Note, Physician History of Present Illness: pt frustrated due to legsa blistering up sw[place]en n/c on doxy jon denies all other complaints derm !!! - Current Medication List Current Medications: Active Medications Acetaminophen (Tylenol -) 650 mg PO Q4H PRN PRN Reason: MODERATE PAIN Last Admin: 06/19/19 09:31 Dose: 650 mg Al Hydroxide/Mg Hydroxide (Mylanta Oral Suspension -) 30 ml PO Q6HPO [facility] Last Admin: 06/19/19 12:39 Dose: Not Given Aspirin (Ecotrin -) 81 mg PO DAILY [facility] Last Admin: 06/19/19 09:28 Dose: 81 mg Doxycycline Hyclate (Vibramycin -) 100 mg PO BID@1000,1800 [facility] Last Admin: 06/19/19 09:28 Dose: 100 mg Hydromorphone HCl (Dilaudid -) 2 mg PO Q6H PRN PRN Reason: PAIN LEVEL 7 - 10 Stop: 06/19/19 14:45 Last Admin: 06/16/19 15:01 Dose: 2 mg Dextrose/Sodium Chloride (D5-1/2ns -) 1,000 mls @ 75 mls/hr IV ASDIR [facility] Last Admin: 06/19/19 06:58 Dose: 75 mls/hr Cefepime HCl 1 gm/ Dextrose 100 mls @ 200 mls/hr IVPB Q8H-IV [facility]; Protocol Last Admin: 06/19/19 09:31 Dose: 200 mls/hr Methylprednisolone Sodium Succinate (Solu-Medrol -) 40 mg IVPUSH Q8H-IV [facility] Last Admin: 06/19/19 09:29 Dose: 40 mg Mycophenolate Mofetil (Cellcept -) 500 mg PO BID [facility] Last Admin: 06/19/19 10:42 Dose: 500 mg Pantoprazole Sodium (Protonix Packets For Oral Suspension -) 40 mg PO DAILY [facility] Last Admin: 06/19/19 09:28 Dose: 40 mg Rosuvastatin Calcium (Crestor -) 20 mg PO HS [facility] Last Admin: 06/18/19 21:33 Dose: 20 mg - Objective Vital Signs: Vital Signs Temperature 98.3 F 06/19/19 06:00 Pulse Rate 76 06/19/19 06:00 Respiratory Rate 20 06/19/19 06:00 Blood Pressure 142/77 06/19/19 06:00 O2 Sat by Pulse Oximetry (%) 98 06/18/19 09:00 Constitutional: Yes: Anxious, Pallor HENT: Yes: WNL Neck: Yes: WNL Cardiovascular: Yes: WNL Respiratory: Yes: WNL Gastrointestinal: Yes: WNL ...Rectal Exam: Yes: Deferred Genitourinary: Yes: WNL, Urethral Discharge Breast(s): Yes: Gynecomastia Extremities: Yes: Other (blisytering rash) Edema: Yes Edema: LLE: 2+, RLE: 2+ Integumentary: Yes: Rash, Venous Stasis Changes Wound/Incision: Yes: Dressing Dry and Intact Neurological: Yes: WNL ...Motor Strength: WNL Psychiatric: Yes: WNL Labs: CBC, BMP 06/19/19 06:15 06/19/19 06:15 Assessment/Plan ? bullous pempfigus sed ? antibiotic cont steroids as is derm to see pt sivadine cream daily to legs ? pneumatic device
--- NOTE | 2019-06-19 16:43 | PN ---
Progress Note, Physician History of Present Illness: Pt seen and examined. Events noted. Still with b/l LE edema, residual generalized rash. Afebrile, wbc trended down. - Current Medication List Current Medications: Active Medications Acetaminophen (Tylenol -) 650 mg PO Q4H PRN PRN Reason: MODERATE PAIN Last Admin: 06/19/19 09:31 Dose: 650 mg Al Hydroxide/Mg Hydroxide (Mylanta Oral Suspension -) 30 ml PO Q6HPO [facility] Last Admin: 06/19/19 12:39 Dose: Not Given Aspirin (Ecotrin -) 81 mg PO DAILY [facility] Last Admin: 06/19/19 09:28 Dose: 81 mg Doxycycline Hyclate (Vibramycin -) 100 mg PO BID@1000,1800 [facility] Last Admin: 06/19/19 09:28 Dose: 100 mg Dextrose/Sodium Chloride (D5-1/2ns -) 1,000 mls @ 75 mls/hr IV ASDIR [facility] Last Admin: 06/19/19 06:58 Dose: 75 mls/hr Cefepime HCl 1 gm/ Dextrose 100 mls @ 200 mls/hr IVPB Q8H-IV [facility]; Protocol Last Admin: 06/19/19 09:31 Dose: 200 mls/hr Methylprednisolone Sodium Succinate (Solu-Medrol -) 40 mg IVPUSH Q8H-IV [facility] Last Admin: 06/19/19 09:29 Dose: 40 mg Mycophenolate Mofetil (Cellcept -) 500 mg PO BID [facility] Last Admin: 06/19/19 10:42 Dose: 500 mg Pantoprazole Sodium (Protonix Packets For Oral Suspension -) 40 mg PO DAILY [facility] Last Admin: 06/19/19 09:28 Dose: 40 mg Rosuvastatin Calcium (Crestor -) 20 mg PO HS [facility] Last Admin: 06/18/19 21:33 Dose: 20 mg Silver Sulfadiazine (Silvadene -) 1 applic TP DAILY [facility] - Objective Vital Signs: Vital Signs Temperature 98.3 F 06/19/19 14:00 Pulse Rate 94 H 06/19/19 14:00 Respiratory Rate 20 06/19/19 14:00 Blood Pressure 133/69 06/19/19 14:00 O2 Sat by Pulse Oximetry (%) 98 06/19/19 09:00 Constitutional: Yes: No Distress, Calm Cardiovascular: Yes: Regular Rate and Rhythm Respiratory: Yes: Regular Gastrointestinal: Yes: Normal Bowel Sounds, Soft Genitourinary: Yes: WNL Extremities: Yes: Erythema Integumentary: Yes: Rash (generalized erythema b/l LE edema/erythema, dressings intact) Neurological: Yes: Alert, Oriented Labs: CBC, BMP 06/19/19 06:15 06/19/19 06:15 - ....Imaging Chest X-ray: Report Reviewed Other: Report Reviewed Problem List - Problems (1) Cellulitis Code(s): L03.90 - CELLULITIS, UNSPECIFIED (2) Leg swelling Code(s): M79.89 - OTHER SPECIFIED SOFT TISSUE DISORDERS Assessment/Plan LE Cellulitis Generalized rash - ? allergy to previous antibiotics Vasculitis -- DVT ruled out -- continue current antibiotics, wound care -- wbc trending down, pt afebrile -- awaiting Dermatology evaluation continue monitor for improvement
[2019-06-19] MEDS: ROSUVASTATIN CA 20 MG TABLET (FP) PO SCH (21:11)
[2019-06-19] MEDS: SILVER SULFADIAZINE 1% TOP CREAM 50 GM JAR TP SCH (23:10)
[2019-06-19] MEDS: TRIAMCINOLONE ACET 0.1% CREAM 15 GM TUBE TP SCH (23:10)
[2019-06-20] MEDS ORDERED: DEXTROSE 5%-WATER 100 ML IVPB ONE ×2 (00:25→09:17)
[2019-06-20] MEDS ORDERED: CEFEPIME HCL 1 GM VIAL (RESTRICTED TO ID) ONE ×2 (00:25→09:17)
[2019-06-20] MEDS: CEFEPIME 1 GM in DEXTROSE 5%-WATER 100 ML IVPB SCH ×2 (01:26→09:22)
[2019-06-20] MEDS: methylPREDNISolone NA SUCC 40 MG/1 ML VIAL IVPUSH SCH ×3 (01:26→17:24)
[2019-06-20] MEDS: MAG HYDROX/AL HYDROX/SIMETH 30 ML UNIT-DOSE CUP PO SCH ×4 (06:34→23:32)
[2019-06-20] MEDS: TRIAMCINOLONE ACET 0.1% CREAM 15 GM TUBE TP SCH ×2 (09:20→22:05)
[2019-06-20] MEDS: DOXYCYCLINE HYCLATE 100 MG CAPSULE PO SCH (09:20)
[2019-06-20] MEDS: PANTOPRAZOLE SOD 40 MG SUSPENSION PACKET PO SCH (09:20)
[2019-06-20] MEDS: ASPIRIN COATED 81 MG TABLET.EC PO SCH (09:21)
[2019-06-20] MEDS: MYCOPHENOLATE MOFETIL 500 MG TABLET PO SCH ×2 (09:21→23:32)
[2019-06-20] MEDS: SILVER SULFADIAZINE 1% TOP CREAM 50 GM JAR TP SCH ×2 (09:22→22:05)
[2019-06-20] MEDS ORDERED: SILVER SULFADIAZINE 1% TOP CREAM 50 GM JAR TP SCH (10:00)
[2019-06-20] MEDS ORDERED: PT OWN MED DRAWER 7, Y5N ONE ×3 (10:23→23:31)
[2019-06-20 11:33] LABS: MCHC 31.8 g/dl (32.0-36.0); MONO % 3.4 % (3.8-10.2)
[2019-06-20 11:49] LABS: BASO % 0.5 % (0-2.0); HEMATOCRIT 39.3 % (32.4-45.2); HEMOGLOBIN 12.5 GM/dL (10.7-15.3); LYMPH % 15.2 % (8-40); MCH 28.7 pg (25.7-33.7); MEAN CELL VOLUME 90.4 fl (80-96); MEAN PLT VOLUME 9.1 fl (7.5-11.1); NEUT % 80.9 % (42.8-82.8); PLATELET COUNT 235 K/MM3 (134-434); RBC 4.35 M/mm3 (3.60-5.2); RDW 13.8 % (11.6-15.6); WHITE BLOOD COUNT 11.5 K/mm3 (4.0-10.0)
--- NOTE | 2019-06-20 13:22 | PN ---
Progress Note, Physician History of Present Illness: legs sliyly better w sivadine vss wbc ok derm still pnd!!! - Current Medication List Current Medications: Active Medications Acetaminophen (Tylenol -) 650 mg PO Q4H PRN PRN Reason: MODERATE PAIN Last Admin: 06/19/19 09:31 Dose: 650 mg Al Hydroxide/Mg Hydroxide (Mylanta Oral Suspension -) 30 ml PO Q6HPO [facility] Last Admin: 06/20/19 13:15 Dose: 30 ml Aspirin (Ecotrin -) 81 mg PO DAILY [facility] Last Admin: 06/20/19 09:21 Dose: 81 mg Doxycycline Hyclate (Vibramycin -) 100 mg PO BID@1000,1800 [facility] Last Admin: 06/20/19 09:20 Dose: 100 mg Cefepime HCl 1 gm/ Dextrose 100 mls @ 200 mls/hr IVPB Q8H-IV [facility]; Protocol Last Admin: 06/20/19 09:22 Dose: 200 mls/hr Methylprednisolone Sodium Succinate (Solu-Medrol -) 40 mg IVPUSH Q8H-IV [facility] Last Admin: 06/20/19 09:23 Dose: 40 mg Mycophenolate Mofetil (Cellcept -) 500 mg PO BID [facility] Last Admin: 06/20/19 09:21 Dose: 500 mg Pantoprazole Sodium (Protonix Packets For Oral Suspension -) 40 mg PO DAILY [facility] Last Admin: 06/20/19 09:20 Dose: 40 mg Rosuvastatin Calcium (Crestor -) 20 mg PO HS [facility] Last Admin: 06/19/19 21:11 Dose: 20 mg Silver Sulfadiazine (Silvadene -) 1 applic TP BID [facility] Last Admin: 06/20/19 09:22 Dose: 1 applic Triamcinolone Acetonide (Aristocort 0.1% Cream -) 1 applic TP BID [facility] Last Admin: 06/20/19 09:20 Dose: 1 applic - Objective Vital Signs: Vital Signs Temperature 97.7 F 06/20/19 10:00 Pulse Rate 75 06/20/19 10:00 Respiratory Rate 20 06/20/19 10:00 Blood Pressure 150/70 06/20/19 10:00 O2 Sat by Pulse Oximetry (%) 98 06/19/19 21:00 Labs: CBC, BMP 06/20/19 11:05 06/19/19 06:15
[2019-06-20 13:45] LABS: ANISOCYTOSIS 0; MACROCYTOSIS 0; PLATELET ESTIMATE NORMAL
--- NOTE | 2019-06-20 15:46 | PN ---
Progress Note, Physician History of Present Illness: Pt is alert/ afebrile. Still with generalized erythema, now with peeling. States pain in her legs/swelling significantly improved. Dermatology consult ( in paper chart) noted. - Current Medication List Current Medications: Active Medications Acetaminophen (Tylenol -) 650 mg PO Q4H PRN PRN Reason: MODERATE PAIN Last Admin: 06/19/19 09:31 Dose: 650 mg Al Hydroxide/Mg Hydroxide (Mylanta Oral Suspension -) 30 ml PO Q6HPO [facility] Last Admin: 06/20/19 13:15 Dose: 30 ml Aspirin (Ecotrin -) 81 mg PO DAILY [facility] Last Admin: 06/20/19 09:21 Dose: 81 mg Doxycycline Hyclate (Vibramycin -) 100 mg PO BID@1000,1800 [facility] Last Admin: 06/20/19 09:20 Dose: 100 mg Cefepime HCl 1 gm/ Dextrose 100 mls @ 200 mls/hr IVPB Q8H-IV [facility]; Protocol Last Admin: 06/20/19 09:22 Dose: 200 mls/hr Methylprednisolone Sodium Succinate (Solu-Medrol -) 40 mg IVPUSH Q8H-IV [facility] Last Admin: 06/20/19 09:23 Dose: 40 mg Mycophenolate Mofetil (Cellcept -) 500 mg PO BID [facility] Last Admin: 06/20/19 09:21 Dose: 500 mg Pantoprazole Sodium (Protonix Packets For Oral Suspension -) 40 mg PO DAILY [facility] Last Admin: 06/20/19 09:20 Dose: 40 mg Rosuvastatin Calcium (Crestor -) 20 mg PO HS [facility] Last Admin: 06/19/19 21:11 Dose: 20 mg Silver Sulfadiazine (Silvadene -) 1 applic TP BID [facility] Last Admin: 06/20/19 09:22 Dose: 1 applic Triamcinolone Acetonide (Aristocort 0.1% Cream -) 1 applic TP BID [facility] Last Admin: 06/20/19 09:20 Dose: 1 applic - Objective Vital Signs: Vital Signs Temperature 97.4 F L 06/20/19 15:19 Pulse Rate 78 06/20/19 15:19 Respiratory Rate 20 06/20/19 15:19 Blood Pressure 133/88 06/20/19 15:19 O2 Sat by Pulse Oximetry (%) 98 06/20/19 09:00 Constitutional: Yes: No Distress, Calm Eyes: Yes: Conjunctiva Clear Cardiovascular: Yes: Regular Rate and Rhythm Respiratory: Yes: Regular Gastrointestinal: Yes: Normal Bowel Sounds, Soft, Abdomen, Obese Genitourinary: Yes: WNL Extremities: Yes: Erythema, Other (b/l LE edema, erythema improving, ruptured blisters, less tenderness) Edema: Yes Edema: LLE: 2+, RLE: 2+ Integumentary: Yes: Erythema (generalized erythematous rash with desquamation), Rash (generalized erythematous rash with desquamation) Wound/Incision: Yes: Dressing Dry and Intact Neurological: Yes: Alert, Oriented Labs: CBC, BMP 06/20/19 11:05 06/19/19 06:15 Microbiology 06/16/19 10:55 Blood - Peripheral Venous Blood Culture - Preliminary NO GROWTH OBTAINED AFTER 96 HOURS, INCUBATION TO CONTINUE FOR 1 DAYS. 06/16/19 10:40 Blood - Peripheral Venous Blood Culture - Preliminary NO GROWTH OBTAINED AFTER 96 HOURS, INCUBATION TO CONTINUE FOR 1 DAYS. 06/12/19 16:20 Blood - Peripheral Venous Blood Culture - Final NO GROWTH AFTER 5 DAYS INCUBATION 06/12/19 16:20 Blood - Peripheral Venous Blood Culture - Final NO GROWTH AFTER 5 DAYS INCUBATION Problem List - Problems (1) Cellulitis Code(s): L03.90 - CELLULITIS, UNSPECIFIED (2) Leg swelling Code(s): M79.89 - OTHER SPECIFIED SOFT TISSUE DISORDERS (3) Drug eruption Code(s): L27.0 - GEN SKIN ERUPTION DUE TO DRUGS AND MEDS TAKEN INTERNALLY Assessment/Plan LE Cellulitis - improving Generalized rash -- likely allergic reaction to one previous antibiotics (Zosyn/ Vancomycin) Bullous drug eruption JOE - resolving Vasculitis -- Dermatology consult appreciated (was placed in paper chart), skin biopsy done , triamcinolone cream/silvadene added, continue Solumedrol -- continue current antibiotics, wound care -- wbc trending down, pt afebrile continue monitor for improvement
[2019-06-20] MEDS: CLINDAMYCIN 600MG PREMIX IVPB 600 MG/50 ML BAG IVPB SCH (17:23)
[2019-06-20] MEDS: ROSUVASTATIN CA 20 MG TABLET (FP) PO SCH (22:04)
[2019-06-21] MEDS: CLINDAMYCIN 600MG PREMIX IVPB 600 MG/50 ML BAG IVPB SCH ×2 (01:46→09:19)
[2019-06-21] MEDS: methylPREDNISolone NA SUCC 40 MG/1 ML VIAL IVPUSH SCH ×3 (01:46→17:07)
[2019-06-21] MEDS: MAG HYDROX/AL HYDROX/SIMETH 30 ML UNIT-DOSE CUP PO SCH ×4 (06:36→23:56)
[2019-06-21] MEDS: TRIAMCINOLONE ACET 0.1% CREAM 15 GM TUBE TP SCH ×2 (09:17→21:54)
[2019-06-21] MEDS: PANTOPRAZOLE SOD 40 MG SUSPENSION PACKET PO SCH (09:18)
[2019-06-21] MEDS: ASPIRIN COATED 81 MG TABLET.EC PO SCH (09:18)
[2019-06-21] MEDS: SILVER SULFADIAZINE 1% TOP CREAM 50 GM JAR TP SCH ×2 (09:20→21:54)
[2019-06-21] MEDS ORDERED: PT OWN MED DRAWER 7, Y5N ONE ×2 (09:23→21:24)
[2019-06-21 09:24] LABS: BASO % 0.4 % (0-2.0); HEMATOCRIT 40.3 % (32.4-45.2); HEMOGLOBIN 13.2 GM/dL (10.7-15.3); LYMPH % 15.1 % (8-40); MCH 29.2 pg (25.7-33.7); MCHC 32.7 g/dl (32.0-36.0); MEAN CELL VOLUME 89.5 fl (80-96); MEAN PLT VOLUME 9.1 fl (7.5-11.1); MONO % 2.7 % (3.8-10.2); NEUT % 81.8 % (42.8-82.8); PLATELET COUNT 191 K/MM3 (134-434); RBC 4.51 M/mm3 (3.60-5.2); RDW 13.9 % (11.6-15.6); WHITE BLOOD COUNT 11.9 K/mm3 (4.0-10.0)
[2019-06-21] MEDS: MYCOPHENOLATE MOFETIL 500 MG TABLET PO SCH ×2 (09:29→21:54)
[2019-06-21 13:45] LABS: ANISOCYTOSIS 1+; MACROCYTOSIS 0; PLATELET ESTIMATE NORMAL; TEAR DROP CELLS 1+
--- NOTE | 2019-06-21 16:35 | PN ---
Progress Note, Physician History of Present Illness: Pt afebrile. Still with generalized rash but no pruritis. Denies having any specific complaints. States her legs are feeling much better. - Current Medication List Current Medications: Active Medications Acetaminophen (Tylenol -) 650 mg PO Q4H PRN PRN Reason: MODERATE PAIN Last Admin: 06/19/19 09:31 Dose: 650 mg Al Hydroxide/Mg Hydroxide (Mylanta Oral Suspension -) 30 ml PO Q6HPO [facility] Last Admin: 06/21/19 11:54 Dose: 30 ml Aspirin (Ecotrin -) 81 mg PO DAILY [facility] Last Admin: 06/21/19 09:18 Dose: 81 mg Clindamycin Phosphate (Cleocin 600 Mg Premix Ivpb -) 600 mg in 50 mls @ 100 mls /hr IVPB Q8H-IV [facility]; Protocol Last Admin: 06/21/19 09:19 Dose: 100 mls/hr Methylprednisolone Sodium Succinate (Solu-Medrol -) 40 mg IVPUSH Q8H-IV [facility] Last Admin: 06/21/19 09:21 Dose: 40 mg Metoprolol Succinate (Toprol Xl -) 25 mg PO DAILY [facility] Mycophenolate Mofetil (Cellcept -) 500 mg PO BID [facility] Last Admin: 06/21/19 09:29 Dose: 500 mg Pantoprazole Sodium (Protonix Packets For Oral Suspension -) 40 mg PO DAILY [facility] Last Admin: 06/21/19 09:18 Dose: 40 mg Rosuvastatin Calcium (Crestor -) 20 mg PO HS [facility] Last Admin: 06/20/19 22:04 Dose: 20 mg Silver Sulfadiazine (Silvadene -) 1 applic TP BID [facility] Last Admin: 06/21/19 09:20 Dose: 1 applic Triamcinolone Acetonide (Aristocort 0.1% Cream -) 1 applic TP BID [facility] Last Admin: 06/21/19 09:17 Dose: 1 applic - Objective Vital Signs: Vital Signs Temperature 98.4 F 06/21/19 14:34 Pulse Rate 85 06/21/19 14:34 Respiratory Rate 20 06/21/19 14:34 Blood Pressure 162/92 06/21/19 14:34 O2 Sat by Pulse Oximetry (%) 98 06/21/19 09:00 Constitutional: Yes: No Distress, Calm Cardiovascular: Yes: Regular Rate and Rhythm Respiratory: Yes: Regular Gastrointestinal: Yes: Normal Bowel Sounds, Soft, Abdomen, Obese Genitourinary: Yes: WNL Extremities: Yes: Other (b/l LE edema/ less erythema/warmth/tenderness) Integumentary: Yes: Rash (generalized) Neurological: Yes: Alert Labs: CBC, BMP 06/21/19 08:10 06/19/19 06:15 Problem List - Problems (1) Cellulitis Code(s): L03.90 - CELLULITIS, UNSPECIFIED (2) Leg swelling Code(s): M79.89 - OTHER SPECIFIED SOFT TISSUE DISORDERS (3) Drug eruption Code(s): L27.0 - GEN SKIN ERUPTION DUE TO DRUGS AND MEDS TAKEN INTERNALLY Assessment/Plan LE Cellulitis - improving Generalized rash -- likely allergic reaction to one previous antibiotics (Zosyn/ Vancomycin) Bullous drug eruption JOE - resolving Vasculitis -- LE erythema/warmth/tenderness improved -- leukocytosis resolved -- still with rash -- will d/c antibiotics continue monitor
[2019-06-21] MEDS: ROSUVASTATIN CA 20 MG TABLET (FP) PO SCH (21:54)
[2019-06-22] MEDS: methylPREDNISolone NA SUCC 40 MG/1 ML VIAL IVPUSH SCH ×2 (01:09→09:21)
[2019-06-22] MEDS: MAG HYDROX/AL HYDROX/SIMETH 30 ML UNIT-DOSE CUP PO SCH ×3 (06:28→17:43)
[2019-06-22 07:12] LABS: BASO % 0.3 % (0-2.0); EOS % 2.5 % (0-4.5); HEMATOCRIT 41.4 % (32.4-45.2); HEMOGLOBIN 13.5 GM/dL (10.7-15.3); LYMPH % 13.6 % (8-40); MCH 29.2 pg (25.7-33.7); MCHC 32.7 g/dl (32.0-36.0); MEAN CELL VOLUME 89.4 fl (80-96); MONO % 0.2 % (3.8-10.2); NEUT % 83.4 % (42.8-82.8); PLATELET COUNT 169 K/MM3 (134-434); RBC 4.63 M/mm3 (3.60-5.2); RDW 13.9 % (11.6-15.6); WHITE BLOOD COUNT 11.2 K/mm3 (4.0-10.0)
[2019-06-22 07:26] LABS: BLOOD UREA NITROGEN 45.2 mg/dL (7-18); CREATININE 1.2 mg/dL (0.55-1.3); POTASSIUM 5.1 mmol/L (3.5-5.1)
[2019-06-22] MEDS ORDERED: PT OWN MED DRAWER 7, Y5N ONE ×2 (09:13→21:14)
[2019-06-22] MEDS: PANTOPRAZOLE SOD 40 MG SUSPENSION PACKET PO SCH (09:18)
[2019-06-22] MEDS: ASPIRIN COATED 81 MG TABLET.EC PO SCH (09:19)
[2019-06-22] MEDS: metoPROLOL SUCCINATE 25 MG TAB.SR.24H (FP) PO SCH (09:19)
[2019-06-22] MEDS: MYCOPHENOLATE MOFETIL 500 MG TABLET PO SCH ×2 (09:21→21:37)
[2019-06-22] MEDS: SILVER SULFADIAZINE 1% TOP CREAM 50 GM JAR TP SCH ×2 (09:22→21:36)
[2019-06-22] MEDS: TRIAMCINOLONE ACET 0.1% CREAM 15 GM TUBE TP SCH ×2 (09:23→21:36)
--- NOTE | 2019-06-22 10:27 | PN ---
Progress Note, Physician History of Present Illness: stable feels better Pt afebrile. Still with generalized rash but no pruritis. Denies having any specific complaints. States her legs are feeling much better. - Current Medication List Current Medications: Active Medications Acetaminophen (Tylenol -) 650 mg PO Q4H PRN PRN Reason: MODERATE PAIN Last Admin: 06/19/19 09:31 Dose: 650 mg Al Hydroxide/Mg Hydroxide (Mylanta Oral Suspension -) 30 ml PO Q6HPO [facility] Last Admin: 06/22/19 06:28 Dose: 30 ml Aspirin (Ecotrin -) 81 mg PO DAILY [facility] Last Admin: 06/22/19 09:19 Dose: 81 mg Methylprednisolone Sodium Succinate (Solu-Medrol -) 40 mg IVPUSH Q8H-IV [facility] Last Admin: 06/22/19 09:21 Dose: 40 mg Metoprolol Succinate (Toprol Xl -) 25 mg PO DAILY [facility] Last Admin: 06/22/19 09:19 Dose: 25 mg Mycophenolate Mofetil (Cellcept -) 500 mg PO BID [facility] Last Admin: 06/22/19 09:21 Dose: 500 mg Pantoprazole Sodium (Protonix Packets For Oral Suspension -) 40 mg PO DAILY [facility] Last Admin: 06/22/19 09:18 Dose: 40 mg Rosuvastatin Calcium (Crestor -) 20 mg PO HS [facility] Last Admin: 06/21/19 21:54 Dose: 20 mg Silver Sulfadiazine (Silvadene -) 1 applic TP BID [facility] Last Admin: 06/22/19 09:22 Dose: 1 applic Triamcinolone Acetonide (Aristocort 0.1% Cream -) 1 applic TP BID [facility] Last Admin: 06/22/19 09:23 Dose: 1 applic - Objective Vital Signs: Vital Signs Temperature 97.8 F 06/21/19 20:20 Pulse Rate 77 06/21/19 20:20 Respiratory Rate 20 06/21/19 20:20 Blood Pressure 117/79 06/21/19 20:20 O2 Sat by Pulse Oximetry (%) 98 06/21/19 21:00 Constitutional: Yes: No Distress, Calm Cardiovascular: Yes: S1, S2 Respiratory: Yes: Regular, Poor Air Entry Gastrointestinal: Yes: Normal Bowel Sounds, Soft Musculoskeletal: Yes: Other Extremities: Yes: Other (b/l dressing of the legs) Neurological: Yes: Alert, Oriented Psychiatric: Yes: Alert, Oriented Labs: CBC, BMP 06/22/19 06:30 06/22/19 06:30 Assessment/Plan Problem List - Problems (1) Cellulitis Code(s): L03.90 - CELLULITIS, UNSPECIFIED (2) Leg swelling Code(s): M79.89 - OTHER SPECIFIED SOFT TISSUE DISORDERS (3) Drug eruption Code(s): L27.0 - GEN SKIN ERUPTION DUE TO DRUGS AND MEDS TAKEN INTERNALLY Assessment/Plan LE Cellulitis - improving Generalized rash -- likely allergic reaction to one previous antibiotics (Zosyn/ Vancomycin) Bullous drug eruption JOE - resolving Vasculitis -- LE erythema/warmth/tenderness improved -- leukocytosis resolved -- still with rash -off of abx
[2019-06-22 12:13] LABS: ANISOCYTOSIS 1+; MACROCYTOSIS 1+; PLATELET ESTIMATE NORMAL
--- NOTE | 2019-06-22 14:59 | PN ---
Progress Note, Physician - Current Medication List Current Medications: Active Medications Acetaminophen (Tylenol -) 650 mg PO Q4H PRN PRN Reason: MODERATE PAIN Last Admin: 06/19/19 09:31 Dose: 650 mg Al Hydroxide/Mg Hydroxide (Mylanta Oral Suspension -) 30 ml PO Q6HPO [facility] Last Admin: 06/22/19 12:28 Dose: 30 ml Aspirin (Ecotrin -) 81 mg PO DAILY [facility] Last Admin: 06/22/19 09:19 Dose: 81 mg Methylprednisolone Sodium Succinate (Solu-Medrol -) 40 mg IVPUSH Q8H-IV [facility] Last Admin: 06/22/19 09:21 Dose: 40 mg Metoprolol Succinate (Toprol Xl -) 25 mg PO DAILY [facility] Last Admin: 06/22/19 09:19 Dose: 25 mg Mycophenolate Mofetil (Cellcept -) 500 mg PO BID [facility] Last Admin: 06/22/19 09:21 Dose: 500 mg Pantoprazole Sodium (Protonix Packets For Oral Suspension -) 40 mg PO DAILY [facility] Last Admin: 06/22/19 09:18 Dose: 40 mg Rosuvastatin Calcium (Crestor -) 20 mg PO HS [facility] Last Admin: 06/21/19 21:54 Dose: 20 mg Silver Sulfadiazine (Silvadene -) 1 applic TP BID [facility] Last Admin: 06/22/19 09:22 Dose: 1 applic Triamcinolone Acetonide (Aristocort 0.1% Cream -) 1 applic TP BID [facility] Last Admin: 06/22/19 09:23 Dose: 1 applic - Objective Vital Signs: Vital Signs Temperature 97.5 F L 06/22/19 10:00 Pulse Rate 72 06/22/19 10:00 Respiratory Rate 20 06/22/19 10:00 Blood Pressure 148/77 06/22/19 10:00 O2 Sat by Pulse Oximetry (%) 98 06/21/19 21:00 Constitutional: Yes: Well Nourished Eyes: Yes: WNL HENT: Yes: WNL Neck: Yes: WNL Cardiovascular: Yes: WNL Respiratory: Yes: WNL Gastrointestinal: Yes: WNL ...Rectal Exam: Yes: Deferred Genitourinary: Yes: WNL Breast(s): Yes: WNL Musculoskeletal: Yes: WNL Extremities: Yes: WNL Edema: Yes Edema: LLE: 1+, RLE: 1+ Peripheral Pulses WNL: Yes Integumentary: Yes: WNL Wound/Incision: Yes: Clean/Dry, Dressing Dry and Intact Neurological: Yes: WNL ...Motor Strength: WNL Psychiatric: Yes: WNL Labs: CBC, BMP 06/22/19 06:30 06/22/19 06:30 Assessment/Plan legs improving diet good 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 d/c in am vns servs p/t case management abraham wraps cristi legs w vns
[2019-06-22] MEDS: ROSUVASTATIN CA 20 MG TABLET (FP) PO SCH (21:37)
[2019-06-23] MEDS: MAG HYDROX/AL HYDROX/SIMETH 30 ML UNIT-DOSE CUP PO SCH ×2 (00:17→06:26)
[2019-06-23] MEDS ORDERED: methylPREDNISolone NA SUCC 40 MG/1 ML VIAL IVPUSH SCH (10:00)
[2019-06-23] MEDS: PANTOPRAZOLE SOD 40 MG SUSPENSION PACKET PO SCH (10:09)
[2019-06-23] MEDS: TRIAMCINOLONE ACET 0.1% CREAM 15 GM TUBE TP SCH (10:09)
--- NOTE | 2019-06-23 10:10 | DS ---
Physical Examination Vital Signs: Vital Signs Temperature 97.7 F 06/23/19 06:00 Pulse Rate 108 H 06/23/19 06:00 Respiratory Rate 20 06/23/19 06:00 Blood Pressure 162/80 06/23/19 06:00 O2 Sat by Pulse Oximetry (%) 98 06/21/19 21:00 Constitutional: Yes: Well Nourished Eyes: Yes: WNL HENT: Yes: WNL Neck: Yes: WNL Cardiovascular: Yes: WNL Respiratory: Yes: WNL Gastrointestinal: Yes: WNL ...Rectal Exam: Yes: Deferred Renal/: Yes: WNL Breast(s): Yes: WNL Musculoskeletal: Yes: Back Pain Extremities: Yes: Erythema Edema: Yes Edema: RUE: 1+, LLE: 1+ Integumentary: Yes: WNL Wound/Incision: Yes: Clean/Dry Neurological: Yes: WNL ...Motor Strength: WNL Psychiatric: Yes: WNL Labs: CBC, BMP 06/22/19 06:30 06/22/19 06:30 Discharge Summary Reason For Visit: CELLULITIS Current Active Problems Cellulitis (Acute) Drug eruption (Acute) Leg swelling (Acute) Condition: Improved - Instructions Diet, Activity, Other Instructions: appt w me fiday 1200 noon cont all tx as at home excert novasc sivadine w ac3e wrappings legs cristi dayly vns serv on board able to walk indepedently no antibiotics? Disposition: VNS/HOME HEALTH CARE - Home Medications Comprehensive Discharge Medication List: Ambulatory Orders Calcium Carbonate/Vitamin D3 [Calcium 500 + Vit D 200 Caplet] 1 tab PO DAILY 10/17 Iron Ps Complex/B12/Folic Acid [Ferrex 150 Forte Capsule] 1 cap PO DAILY Metoprolol Tartrate 100 mg PO DAILY 12/12/15 Mycophenolate Mofetil 500 mg PO BID 12/12/15 Alendronate Na [Fosamax] 70 mg PO Q7D 12/16/17 Amlodipine Besylate [Norvasc -] 10 mg PO DAILY 12/16/17 Aspirin 81 mg PO DAILY 12/16/17 Furosemide [Lasix -] 40 mg PO DAILY 06/12/19
[2019-06-23] MEDS: metoPROLOL SUCCINATE 25 MG TAB.SR.24H (FP) PO SCH (10:11)
[2019-06-23] MEDS ORDERED: PT OWN MED DRAWER 7, Y5N ONE (10:11)
[2019-06-23] MEDS: ASPIRIN COATED 81 MG TABLET.EC PO SCH (10:11)
[2019-06-23] MEDS: MYCOPHENOLATE MOFETIL 500 MG TABLET PO SCH (10:12)
[2019-06-23] MEDS: SILVER SULFADIAZINE 1% TOP CREAM 50 GM JAR TP SCH (10:12)
[2019-06-23 11:44] VITALS: BP 154/87; PULSE 82; TEMP 98.1
== END 2019-06-23 11:48 | disposition home health service (06) | DRG 872 ==
LOC: JER 12:50 → JERBED 15:54 → J8W 18:37
PROVIDERS: ADMIT Family Medicine; ATTEND Family Medicine
DX: A41.9 Sepsis, unspecified organism (principal); L03.116 Cellulitis of left lower limb; L03.115 Cellulitis of right lower limb; N17.9 Acute kidney failure, unspecified; I77.6 Arteritis, unspecified; L27.0 Generalized skin eruption due to drugs and medicaments taken internally; E66.9 Obesity, unspecified; Z68.38 Body mass index [BMI] 38.0-38.9, adult; D72.829 Elevated white blood cell count, unspecified; I10 Essential (primary) hypertension; I95.9 Hypotension, unspecified
CPT/HCPCS: 36415; 71046-TC-FY; 73502-TC-RT-FY; 73560-TC-RT-FY; 80048; 80053; 82550; 84484; 85025; 85027; 87040; 93005; 93010; 93306-TC; 93970-TC; 97116-GP; 97162-GP; 99282-25; J7517

== ENCOUNTER 2021-07-28 10:28 | Inpatient (IN) | payer OTHER ==
[2021-07-28 11:56] LABS: BASO % 0.6 % (0-2.0); EOS % 0.8 % (0-4.5); HEMATOCRIT 37.3 % (32.4-45.2); HEMOGLOBIN 12.3 GM/dL (10.7-15.3); LYMPH % 16.4 % (8-40); MCH 28.7 pg (25.7-33.7); MCHC 32.9 g/dl (32.0-36.0); MEAN CELL VOLUME 87.2 fl (80-96); MEAN PLT VOLUME 7.8 fl (7.5-11.1); MONO % 9.1 % (3.8-10.2); NEUT % 73.1 % (42.8-82.8); PLATELET COUNT 214 10^3/uL (134-434); RBC 4.28 M/mm3 (3.60-5.2); RDW 13.9 % (11.6-15.6); WHITE BLOOD COUNT 7.9 K/mm3 (4.0-10.0)
[2021-07-28 12:22] LABS: CALCIUM 8.9 mg/dL (8.5-10.1)
[2021-07-28 12:23] LABS: ALBUMIN 3.4 g/dl (3.4-5.0); BLOOD UREA NITROGEN 21.5 mg/dL (7-18)
[2021-07-28 12:26] LABS: CREATININE 1.2 mg/dL (0.55-1.3)
[2021-07-28 12:27] LABS: BILIRUBIN,TOTAL 0.4 mg/dL (0.2-1)
[2021-07-28 12:28] LABS: TOT PROT 6.6 g/dl (6.4-8.2)
[2021-07-28] MEDS ORDERED: CEFEPIME HCL/D5W 1 GM/50 ML BAG IVPB ONE ×2 (12:31→12:54)
[2021-07-28] MEDS: SODIUM CHLORIDE 1,000 ML IV SCH (17:58)
[2021-07-28] MEDS: MYCOPHENOLATE MOFETIL 500 MG TABLET PO SCH (23:15)
[2021-07-28] MEDS: METOPROLOL TARTRATE 50 MG TABLET (FP) PO SCH (23:16)
[2021-07-28] MEDS: ROSUVASTATIN CA 20 MG TABLET (FP) PO SCH (23:16)
[2021-07-29 00:04] VITALS: BMI 37.3
[2021-07-29 09:04] LABS: HEMATOCRIT 33.8 % (32.4-45.2); HEMOGLOBIN 11.1 GM/dL (10.7-15.3); MCH 28.9 pg (25.7-33.7); MCHC 32.9 g/dl (32.0-36.0); MEAN CELL VOLUME 87.8 fl (80-96); MEAN PLT VOLUME 8.4 fl (7.5-11.1); PLATELET COUNT 178 10^3/uL (134-434); RBC 3.85 M/mm3 (3.60-5.2); RDW 13.6 % (11.6-15.6); WHITE BLOOD COUNT 4.9 K/mm3 (4.0-10.0)
[2021-07-29 09:24] LABS: ALBUMIN 2.8 g/dl (3.4-5.0); BLOOD UREA NITROGEN 19.1 mg/dL (7-18); CALCIUM 8.5 mg/dL (8.5-10.1)
[2021-07-29 09:28] LABS: BILIRUBIN,TOTAL 0.8 mg/dL (0.2-1); TOT PROT 5.6 g/dl (6.4-8.2)
[2021-07-29 09:49] LABS: ANISOCYTOSIS 0; HELMET CELLS 0; HOWELL-JOLLY BODIES 0; MACROCYTOSIS 0; OVALOCYTE 0; PLATELET ESTIMATE NORMAL; ROULEAU 0; SICKELED CELLS 0; TARGET CELLS 0; TEAR DROP CELLS 0; TOXIC GRANULATION 0
[2021-07-29] MEDS ORDERED: PNEUMOC 13-VAL CONJ-DIP CRM/PF 0.5 ML DISP.SYRIN IM ONE (10:00)
[2021-07-29] MEDS: ENOXAPARIN NA (PORCINE) 40 MG/0.4 ML DISP.SYRIN SQ SCH (10:44)
[2021-07-29] MEDS: MYCOPHENOLATE MOFETIL 500 MG TABLET PO SCH ×2 (10:44→21:26)
[2021-07-29] MEDS: METOPROLOL TARTRATE 50 MG TABLET (FP) PO SCH ×2 (10:44→21:25)
[2021-07-29] MEDS: PANTOPRAZOLE 40 MG TABLET PO SCH (10:45)
[2021-07-29] MEDS ORDERED: PT OWN MED DRAWER 7, Y5N ONE ×2 (11:11→20:20)
[2021-07-29] MEDS: CEFEPIME 2 GM in DEXTROSE 5%-WATER 2 GM/100 ML BAG IVPB SCH ×2 (13:16→21:25)
[2021-07-29] MEDS: SODIUM CHLORIDE 1,000 ML IV SCH (17:14)
[2021-07-29] MEDS ORDERED: CEFEPIME HCL/D5W 2 GM/50 ML BAG IVPB SCH (18:00)
[2021-07-29] MEDS: ROSUVASTATIN CA 20 MG TABLET (FP) PO SCH (21:25)
[2021-07-30] MEDS ORDERED: PT OWN MED DRAWER 7, Y5N ONE ×6 (09:25→21:20)
[2021-07-30] MEDS: ENOXAPARIN NA (PORCINE) 40 MG/0.4 ML DISP.SYRIN SQ SCH (09:34)
[2021-07-30] MEDS: PANTOPRAZOLE 40 MG TABLET PO SCH (09:34)
[2021-07-30] MEDS: METOPROLOL TARTRATE 50 MG TABLET (FP) PO SCH ×2 (09:34→21:19)
[2021-07-30] MEDS: CEFEPIME 2 GM in DEXTROSE 5%-WATER 2 GM/100 ML BAG IVPB SCH ×2 (09:35→21:21)
[2021-07-30] MEDS: MYCOPHENOLATE MOFETIL 500 MG TABLET PO SCH ×2 (09:36→21:18)
[2021-07-30 09:59] LABS: BASO % 0.9 % (0-2.0); EOS % 2.4 % (0-4.5); HEMATOCRIT 36.5 % (32.4-45.2); HEMOGLOBIN 12.2 GM/dL (10.7-15.3); LYMPH % 26.8 % (8-40); MCH 29.2 pg (25.7-33.7); MCHC 33.4 g/dl (32.0-36.0); MEAN CELL VOLUME 87.3 fl (80-96); MEAN PLT VOLUME 8.4 fl (7.5-11.1); MONO % 6.7 % (3.8-10.2); NEUT % 63.2 % (42.8-82.8); PLATELET COUNT 214 10^3/uL (134-434); RBC 4.18 M/mm3 (3.60-5.2); RDW 13.7 % (11.6-15.6); WHITE BLOOD COUNT 5.5 K/mm3 (4.0-10.0)
[2021-07-30 10:25] LABS: BLOOD UREA NITROGEN 22.8 mg/dL (7-18); CALCIUM 8.7 mg/dL (8.5-10.1)
[2021-07-30 10:29] LABS: CREATININE 1.2 mg/dL (0.55-1.3)
[2021-07-30] MEDS: SODIUM CHLORIDE 1,000 ML IV SCH (21:17)
[2021-07-30] MEDS: ROSUVASTATIN CA 20 MG TABLET (FP) PO SCH (21:19)
[2021-07-31 09:14] LABS: EOS % 2.8 % (0-4.5); HEMATOCRIT 34.4 % (32.4-45.2); HEMOGLOBIN 11.3 GM/dL (10.7-15.3); LYMPH % 25.6 % (8-40); MCH 28.9 pg (25.7-33.7); MCHC 32.9 g/dl (32.0-36.0); MEAN CELL VOLUME 87.7 fl (80-96); MEAN PLT VOLUME 8.6 fl (7.5-11.1); MONO % 9.9 % (3.8-10.2); NEUT % 60.7 % (42.8-82.8); PLATELET COUNT 174 10^3/uL (134-434); RBC 3.92 M/mm3 (3.60-5.2); RDW 13.7 % (11.6-15.6)
[2021-07-31] MEDS ORDERED: PT OWN MED DRAWER 7, Y5N ONE (09:19)
[2021-07-31 09:33] LABS: BLOOD UREA NITROGEN 22.6 mg/dL (7-18); CALCIUM 8.5 mg/dL (8.5-10.1)
[2021-07-31] MEDS: MYCOPHENOLATE MOFETIL 500 MG TABLET PO SCH ×2 (09:52→21:00)
[2021-07-31] MEDS: PANTOPRAZOLE 40 MG TABLET PO SCH (09:52)
[2021-07-31] MEDS: METOPROLOL TARTRATE 50 MG TABLET (FP) PO SCH ×2 (09:52→21:00)
[2021-07-31] MEDS: CEFEPIME 2 GM in DEXTROSE 5%-WATER 2 GM/100 ML BAG IVPB SCH ×2 (09:53→21:00)
[2021-07-31] MEDS: ENOXAPARIN NA (PORCINE) 40 MG/0.4 ML DISP.SYRIN SQ SCH (09:53)
[2021-07-31] MEDS: SODIUM CHLORIDE 1,000 ML IV SCH ×2 (19:37→20:52)
[2021-07-31] MEDS: ROSUVASTATIN CA 20 MG TABLET (FP) PO SCH (21:00)
[2021-08-01] MEDS ORDERED: INSULIN (NOVOLOG) ASPART 100 UNITS/ML 10ML VIAL ONE (08:04)
[2021-08-01] MEDS ORDERED: INSULIN (LEVEMIR) 100 UNITS/ML UNITS SQ ONE (08:04)
[2021-08-01 08:21] LABS: BASO % 0.8 % (0-2.0); EOS % 2.9 % (0-4.5); HEMATOCRIT 36.2 % (32.4-45.2); LYMPH % 30.7 % (8-40); MCH 28.8 pg (25.7-33.7); MCHC 33.2 g/dl (32.0-36.0); MEAN CELL VOLUME 86.8 fl (80-96); MEAN PLT VOLUME 8.3 fl (7.5-11.1); MONO % 8.4 % (3.8-10.2); NEUT % 57.2 % (42.8-82.8); PLATELET COUNT 197 10^3/uL (134-434); RBC 4.17 M/mm3 (3.60-5.2); RDW 13.6 % (11.6-15.6); WHITE BLOOD COUNT 4.7 K/mm3 (4.0-10.0)
[2021-08-01 09:02] LABS: BLOOD UREA NITROGEN 20.2 mg/dL (7-18)
[2021-08-01 09:03] LABS: CALCIUM 8.8 mg/dL (8.5-10.1)
[2021-08-01] MEDS ORDERED: PT OWN MED DRAWER 7, Y5N ONE ×2 (10:22→10:42)
[2021-08-01] MEDS: MYCOPHENOLATE MOFETIL 500 MG TABLET PO SCH (10:28)
[2021-08-01] MEDS: METOPROLOL TARTRATE 50 MG TABLET (FP) PO SCH ×2 (10:28→22:09)
[2021-08-01] MEDS: CEFEPIME 2 GM in DEXTROSE 5%-WATER 2 GM/100 ML BAG IVPB SCH (10:29)
[2021-08-01] MEDS: ENOXAPARIN NA (PORCINE) 40 MG/0.4 ML DISP.SYRIN SQ SCH (10:29)
[2021-08-01] MEDS: PANTOPRAZOLE 40 MG TABLET PO SCH (10:29)
[2021-08-01] MEDS ORDERED: AMOX TR/POT CLAV 875MG/125MG TABLETS (FP) PO SCH (17:30)
[2021-08-01] MEDS ORDERED: AMPICILLIN NA/SULBACTAM NA 3 GM VIAL ONE (17:44)
[2021-08-01] MEDS: SODIUM CHLORIDE 1,000 ML IV SCH (17:55)
[2021-08-01] MEDS: AMPICILLIN NA/SULBACTAM NA 3 GM in SODIUM CHLORIDE 100 ML IVPB SCH (17:55)
[2021-08-01] MEDS: ROSUVASTATIN CA 20 MG TABLET (FP) PO SCH (22:09)
[2021-08-02] MEDS ORDERED: SODIUM CHLORIDE 100 ML IVPB ONE ×2 (02:17→09:22)
[2021-08-02] MEDS ORDERED: AMPICILLIN NA/SULBACTAM NA 3 GM VIAL ONE ×2 (02:17→09:22)
[2021-08-02] MEDS: AMPICILLIN NA/SULBACTAM NA 3 GM in SODIUM CHLORIDE 100 ML IVPB SCH ×2 (02:25→09:51)
[2021-08-02] MEDS ORDERED: PT OWN MED DRAWER 7, Y5N ONE (09:23)
[2021-08-02] MEDS: ENOXAPARIN NA (PORCINE) 40 MG/0.4 ML DISP.SYRIN SQ SCH (09:50)
[2021-08-02] MEDS: PANTOPRAZOLE 40 MG TABLET PO SCH (09:51)
[2021-08-02] MEDS: METOPROLOL TARTRATE 50 MG TABLET (FP) PO SCH (09:51)
[2021-08-02] MEDS ORDERED: MYCOPHENOLATE MOFETIL 500 MG TABLET PO SCH (10:00)
[2021-08-02 14:29] VITALS: BP 131/76; PULSE 70; TEMP 98.3
[2021-08-02] MEDS ORDERED: AMOX TR/POT CLAV 875MG/125MG TABLETS (FP) PO SCH (17:30)
== END 2021-08-02 17:53 | disposition home or self-care (01) | DRG 593 ==
LOC: JER 10:28 → JERBED 12:34 → J8W 21:44
PROVIDERS: ADMIT Family Medicine; ATTEND Family Medicine
DX: L97.929 Non-pressure chronic ulcer of unspecified part of left lower leg with unspecified severity (principal); L03.116 Cellulitis of left lower limb; L03.115 Cellulitis of right lower limb; L97.919 Non-pressure chronic ulcer of unspecified part of right lower leg with unspecified severity; E78.5 Hyperlipidemia, unspecified; E66.9 Obesity, unspecified; Z68.37 Body mass index [BMI] 37.0-37.9, adult; I77.6 Arteritis, unspecified; I11.0 Hypertensive heart disease with heart failure; I50.9 Heart failure, unspecified
CPT/HCPCS: 36415; 80048; 80053; 85025; 87040; 87070; 87186; 87205; 93005; 93010; 93970-TC; 99285-25; A6196; A6197; C9803; G0463-25; J7517; U0003; U0005

== ENCOUNTER 2021-10-04 12:07 | Inpatient (IN) | payer OTHER ==
[2021-10-04] MEDS ORDERED: SODIUM CHLORIDE IV ONE (13:05)
[2021-10-04] MEDS ORDERED: ACETAMINOPHEN 1000 MG/100 ML VIAL IVPB ONE (13:07)
[2021-10-04] MEDS ORDERED: ACETAMINOPHEN INJECTION 100 ML IVPB ONE (13:23)
[2021-10-04 13:49] LABS: BASO % 0.6 % (0-2.0); EOS % 0.1 % (0-4.5); HEMOGLOBIN 10.9 GM/dL (10.7-15.3); MCH 28.2 pg (25.7-33.7); MCHC 32.9 g/dl (32.0-36.0); MEAN CELL VOLUME 85.9 fl (80-96); MEAN PLT VOLUME 8.3 fl (7.5-11.1); MONO % 5.1 % (3.8-10.2); NEUT % 84.2 % (42.8-82.8); PLATELET COUNT 245 10^3/uL (134-434); RBC 3.84 M/mm3 (3.60-5.2); RDW 14.8 % (11.6-15.6); WHITE BLOOD COUNT 11.4 K/mm3 (4.0-10.0)
[2021-10-04 13:50] LABS: VENOUS BASE EXCESS -1.4 mmol/L (-2-2); VENOUS O2 SATURATION 26.1 % (70-80); VENOUS PCO2 47.3 mmHg (38-52); VENOUS PH 7.335 (7.310-7.410)
[2021-10-04 13:58] LABS: INR 0.99 (0.83-1.09); PROTHROMBIN TIME (PATIENT) 11.6 SEC (9.7-13.0)
[2021-10-04] MEDS ORDERED: morphine CARPU-JECT 2 MG/1 ML DISP.SYRIN IVPUSH ONE (13:59)
[2021-10-04 14:01] LABS: ACTIVATED PTT 29.4 SECONDS (25.2-36.5)
[2021-10-04 14:11] LABS: CHLORIDE 108 mmol/L (98-107); SODIUM 141 mmol/L (136-145)
[2021-10-04 14:13] LABS: CALCIUM 8.7 mg/dL (8.5-10.1)
[2021-10-04 14:14] LABS: ALBUMIN 2.9 g/dl (3.4-5.0); ANION GAP 5 MMOL/L (8-16); BLOOD UREA NITROGEN 28.4 mg/dL (7-18); CO2 27 mmol/L (21-32); GLUCOSE,RANDOM 109 mg/dL (74-106)
[2021-10-04 14:17] LABS: CREATININE 1.2 mg/dL (0.55-1.3); SGOT/AST 17 U/L (15-37)
[2021-10-04 14:18] LABS: BILIRUBIN,TOTAL 0.4 mg/dL (0.2-1); TOT PROT 6.5 g/dl (6.4-8.2)
[2021-10-04 14:19] LABS: ALK PHOS 95 U/L (45-117)
[2021-10-04 14:23] LABS: SGPT/ALT 15 U/L (13-61)
[2021-10-04] MEDS ORDERED: SODIUM CHLORIDE 0.9% 500 ML INFUS.BAG IV ONE (14:28)
[2021-10-04 14:43] LABS: EPI CELLS 10 /uL (0-25.1); HYALINE CASTS 2 /uL (0-3.1); PH,URINE 5.5 (5.0-8.0); URINE APPEARANCE CLEAR; URINE BACTERIA 41 /uL (0-1359); URINE BILIRUBIN NEGATIVE (NEGATIVE); URINE COLOR YELLOW; URINE GLUCOSE (UA) NEGATIVE (NEGATIVE); URINE KETONE NEGATIVE (NEGATIVE); URINE LEUK ESTERASE NEGATIVE (NEGATIVE); URINE NITRITE NEGATIVE (NEGATIVE); URINE PROTEIN 2+ (NEGATIVE); URINE RBC 68 /uL (0-23.9); URINE UROBILINOGEN 0.2 mg/dL (0.2-1.0); URINE WBC 13 /uL (0-25.8)
[2021-10-04] MEDS ORDERED: morphine SULFATE 4 MG/ML VIAL ONE (15:18)
[2021-10-04] MEDS ORDERED: VANCOMYCIN 1 GM in D5W (PRE-DOCKED) 1,000 MG/250 ML IVPB ONE (15:52)
[2021-10-04] MEDS ORDERED: VANCOMYCIN 1 GRAM (PRE-DOCKED) 1,000 MG/250 ML BAG IVPB ONE (15:55)
[2021-10-04] MEDS ORDERED: morphine SULFATE 4 MG/ML VIAL IVPUSH PRN (18:59)
[2021-10-04] MEDS ORDERED: METOPROLOL TARTRATE 50 MG TABLET (FP) PO ONE (18:59)
[2021-10-04] MEDS: SODIUM CHLORIDE 1,000 ML IV SCH (20:17)
[2021-10-04] MEDS: ACETAMINOPHEN 325 MG TABLET (FP) PO PRN (20:49)
[2021-10-04] MEDS: MYCOPHENOLATE MOFETIL 500 MG TABLET PO SCH (22:28)
[2021-10-04] MEDS: ROSUVASTATIN CA 20 MG TABLET (FP) PO SCH (22:28)
[2021-10-05] MEDS: ACETAMINOPHEN 325 MG TABLET (FP) PO PRN ×4 (06:25→22:28)
[2021-10-05 06:59] LABS: BASO % 0.7 % (0-2.0); EOS % 1.9 % (0-4.5); HEMATOCRIT 29.4 % (32.4-45.2); HEMOGLOBIN 9.8 GM/dL (10.7-15.3); LYMPH % 14.9 % (8-40); MCH 28.9 pg (25.7-33.7); MCHC 33.4 g/dl (32.0-36.0); MEAN CELL VOLUME 86.7 fl (80-96); MEAN PLT VOLUME 8.2 fl (7.5-11.1); NEUT % 77.5 % (42.8-82.8); PLATELET COUNT 192 10^3/uL (134-434); WHITE BLOOD COUNT 7.4 K/mm3 (4.0-10.0)
[2021-10-05 07:13] LABS: BILIRUBIN,TOTAL 0.3 mg/dL (0.2-1); BLOOD UREA NITROGEN 18.6 mg/dL (7-18); CALCIUM 7.8 mg/dL (8.5-10.1); CREATININE 0.8 mg/dL (0.55-1.3); TOT PROT 5.1 g/dl (6.4-8.2)
[2021-10-05] MEDS: CALCIUM 250MG/VIT-D 125 UNITS 1 COMBO TABLET PO SCH (10:06)
[2021-10-05] MEDS: PANTOPRAZOLE 40 MG TABLET PO SCH (10:06)
[2021-10-05] MEDS: MYCOPHENOLATE MOFETIL 500 MG TABLET PO SCH ×2 (10:06→22:30)
[2021-10-05] MEDS: ASPIRIN COATED 81 MG TABLET.EC PO SCH (10:06)
[2021-10-05] MEDS: SODIUM CHLORIDE 1,000 ML IV SCH (10:11)
[2021-10-05] MEDS: VANCOMYCIN/WATER BAGS 1,250 MG/250 ML BAG IVPB SCH (13:19)
[2021-10-05] MEDS: AMINO ACIDS/PROTEIN HYDROLYS 30 ML LIQUID.PKT PO SCH (16:32)
[2021-10-05] MEDS: ROSUVASTATIN CA 20 MG TABLET (FP) PO SCH (22:29)
[2021-10-06] MEDS: VANCOMYCIN/WATER BAGS 1,250 MG/250 ML BAG IVPB SCH (01:27)
[2021-10-06] MEDS: ACETAMINOPHEN 325 MG TABLET (FP) PO PRN ×3 (05:47→21:07)
[2021-10-06 07:42] LABS: BASO % 0.2 % (0-2.0); EOS % 3.9 % (0-4.5); HEMOGLOBIN 10.4 GM/dL (10.7-15.3); MCH 28.4 pg (25.7-33.7); MCHC 33.7 g/dl (32.0-36.0); MEAN CELL VOLUME 84.5 fl (80-96); MEAN PLT VOLUME 7.7 fl (7.5-11.1); NEUT % 82.9 % (42.8-82.8); PLATELET COUNT 214 10^3/uL (134-434); RBC 3.67 M/mm3 (3.60-5.2); RDW 14.9 % (11.6-15.6); WHITE BLOOD COUNT 9.8 K/mm3 (4.0-10.0)
[2021-10-06 08:15] LABS: CALCIUM 8.1 mg/dL (8.5-10.1)
[2021-10-06] MEDS ORDERED: PT OWN MED DRAWER 7, Y5N ONE (09:29)
[2021-10-06] MEDS: AMINO ACIDS/PROTEIN HYDROLYS 30 ML LIQUID.PKT PO SCH ×2 (09:40→18:40)
[2021-10-06] MEDS: ASPIRIN COATED 81 MG TABLET.EC PO SCH (09:40)
[2021-10-06] MEDS: MYCOPHENOLATE MOFETIL 500 MG TABLET PO SCH ×2 (09:40→21:06)
[2021-10-06] MEDS: PANTOPRAZOLE 40 MG TABLET PO SCH (09:40)
[2021-10-06] MEDS: POLYETHYLENE GLYCOL (HEALTHYLAX) 3350 17 GM PACKET PO SCH (09:41)
[2021-10-06] MEDS: KETOCONAZOLE 2% TOPICAL CREAM 15 GM TUBE TP SCH (09:41)
[2021-10-06] MEDS: CALCIUM 250MG/VIT-D 125 UNITS 1 COMBO TABLET PO SCH (09:41)
[2021-10-06] MEDS ORDERED: ceFAZolin SODIUM 1 GM VIAL ONE ×2 (14:15→18:25)
[2021-10-06] MEDS ORDERED: DEXTROSE 5%-WATER - 50 ML IVPB ONE ×2 (14:16→18:25)
[2021-10-06] MEDS: CEFAZOLIN 1 GM in DEXTROSE 5%-WATER - 50 ML IVPB SCH ×2 (14:25→18:40)
[2021-10-06] MEDS: ROSUVASTATIN CA 20 MG TABLET (FP) PO SCH (21:06)
[2021-10-07] MEDS: ACETAMINOPHEN 325 MG TABLET (FP) PO PRN ×3 (02:17→22:24)
[2021-10-07] MEDS: CEFAZOLIN 1 GM in DEXTROSE 5%-WATER - 50 ML IVPB SCH ×2 (03:41→09:57)
[2021-10-07 09:06] LABS: BASO % 0.4 % (0-2.0); EOS % 4.3 % (0-4.5); HEMATOCRIT 34.3 % (32.4-45.2); HEMOGLOBIN 11.1 GM/dL (10.7-15.3); LYMPH % 13.4 % (8-40); MCH 28.4 pg (25.7-33.7); MCHC 32.5 g/dl (32.0-36.0); MEAN CELL VOLUME 87.3 fl (80-96); MEAN PLT VOLUME 8.3 fl (7.5-11.1); MONO % 6.1 % (3.8-10.2); NEUT % 75.8 % (42.8-82.8); PLATELET COUNT 215 10^3/uL (134-434); RBC 3.92 M/mm3 (3.60-5.2); RDW 15.1 % (11.6-15.6)
[2021-10-07 09:34] LABS: BLOOD UREA NITROGEN 23.3 mg/dL (7-18); CALCIUM 8.7 mg/dL (8.5-10.1)
[2021-10-07] MEDS ORDERED: ceFAZolin SODIUM 1 GM VIAL ONE (09:43)
[2021-10-07] MEDS ORDERED: DEXTROSE 5%-WATER - 50 ML IVPB ONE (09:43)
[2021-10-07] MEDS: ASPIRIN COATED 81 MG TABLET.EC PO SCH (09:55)
[2021-10-07] MEDS: PANTOPRAZOLE 40 MG TABLET PO SCH (09:56)
[2021-10-07] MEDS: MYCOPHENOLATE MOFETIL 500 MG TABLET PO SCH ×2 (09:57→22:25)
[2021-10-07] MEDS: AMINO ACIDS/PROTEIN HYDROLYS 30 ML LIQUID.PKT PO SCH ×2 (09:57→19:13)
[2021-10-07] MEDS: POLYETHYLENE GLYCOL (HEALTHYLAX) 3350 17 GM PACKET PO SCH (09:57)
[2021-10-07] MEDS: KETOCONAZOLE 2% TOPICAL CREAM 15 GM TUBE TP SCH (09:57)
[2021-10-07] MEDS ORDERED: PT OWN MED DRAWER 7, Y5N ONE (10:04)
[2021-10-07] MEDS: CALCIUM 250MG/VIT-D 125 UNITS 1 COMBO TABLET PO SCH (10:06)
[2021-10-07] MEDS: CLINDAMYCIN 600MG PREMIX IVPB 600 MG/50 ML BAG IVPB SCH (19:13)
[2021-10-07] MEDS: ROSUVASTATIN CA 20 MG TABLET (FP) PO SCH (22:25)
[2021-10-08] MEDS: ACETAMINOPHEN 325 MG TABLET (FP) PO PRN ×4 (02:23→22:36)
[2021-10-08] MEDS: CLINDAMYCIN 600MG PREMIX IVPB 600 MG/50 ML BAG IVPB SCH ×3 (02:24→17:11)
[2021-10-08 09:00] LABS: BASO % 0.7 % (0-2.0); EOS % 5.1 % (0-4.5); HEMATOCRIT 34.1 % (32.4-45.2); LYMPH % 15.5 % (8-40); MCH 28.3 pg (25.7-33.7); MCHC 32.2 g/dl (32.0-36.0); MEAN CELL VOLUME 87.8 fl (80-96); MEAN PLT VOLUME 8.4 fl (7.5-11.1); MONO % 6.6 % (3.8-10.2); NEUT % 72.1 % (42.8-82.8); PLATELET COUNT 204 10^3/uL (134-434); RBC 3.88 M/mm3 (3.60-5.2); WHITE BLOOD COUNT 8.6 K/mm3 (4.0-10.0)
[2021-10-08 09:31] LABS: BLOOD UREA NITROGEN 27.6 mg/dL (7-18); CALCIUM 8.8 mg/dL (8.5-10.1)
[2021-10-08 09:34] LABS: CREATININE 0.9 mg/dL (0.55-1.3)
[2021-10-08] MEDS: AMINO ACIDS/PROTEIN HYDROLYS 30 ML LIQUID.PKT PO SCH ×2 (11:20→17:11)
[2021-10-08] MEDS: POLYETHYLENE GLYCOL (HEALTHYLAX) 3350 17 GM PACKET PO SCH ×2 (11:20)
[2021-10-08] MEDS: ASPIRIN COATED 81 MG TABLET.EC PO SCH (11:24)
[2021-10-08] MEDS: MYCOPHENOLATE MOFETIL 500 MG TABLET PO SCH ×2 (11:24→21:09)
[2021-10-08] MEDS: PANTOPRAZOLE 40 MG TABLET PO SCH (11:24)
[2021-10-08] MEDS: CALCIUM 250MG/VIT-D 125 UNITS 1 COMBO TABLET PO SCH (14:09)
[2021-10-08] MEDS: KETOCONAZOLE 2% TOPICAL CREAM 15 GM TUBE TP SCH (14:09)
[2021-10-08] MEDS: ROSUVASTATIN CA 20 MG TABLET (FP) PO SCH (21:09)
[2021-10-08] MEDS: diphenhydrAMINE HCL 25 MG CAPSULE (FP) PO SCH (21:10)
[2021-10-09] MEDS: CLINDAMYCIN 600MG PREMIX IVPB 600 MG/50 ML BAG IVPB SCH ×3 (01:46→17:09)
[2021-10-09 08:13] LABS: BASO % 0.7 % (0-2.0); EOS % 5.1 % (0-4.5); HEMATOCRIT 30.1 % (32.4-45.2); HEMOGLOBIN 10.1 GM/dL (10.7-15.3); LYMPH % 22.8 % (8-40); MCH 28.5 pg (25.7-33.7); MCHC 33.4 g/dl (32.0-36.0); MEAN CELL VOLUME 85.2 fl (80-96); MEAN PLT VOLUME 8.2 fl (7.5-11.1); MONO % 7.7 % (3.8-10.2); NEUT % 63.7 % (42.8-82.8); PLATELET COUNT 207 10^3/uL (134-434); RBC 3.53 M/mm3 (3.60-5.2); RDW 14.7 % (11.6-15.6); WHITE BLOOD COUNT 7.3 K/mm3 (4.0-10.0)
[2021-10-09 08:39] LABS: BLOOD UREA NITROGEN 34.5 mg/dL (7-18); CALCIUM 8.4 mg/dL (8.5-10.1)
[2021-10-09 08:43] LABS: CREATININE 1.1 mg/dL (0.55-1.3)
[2021-10-09] MEDS: MYCOPHENOLATE MOFETIL 500 MG TABLET PO SCH ×2 (09:17→21:12)
[2021-10-09] MEDS: PANTOPRAZOLE 40 MG TABLET PO SCH (09:17)
[2021-10-09] MEDS: ASPIRIN COATED 81 MG TABLET.EC PO SCH (09:17)
[2021-10-09] MEDS: POLYETHYLENE GLYCOL (HEALTHYLAX) 3350 17 GM PACKET PO SCH (09:17)
[2021-10-09] MEDS: AMINO ACIDS/PROTEIN HYDROLYS 30 ML LIQUID.PKT PO SCH ×2 (09:17→17:09)
[2021-10-09] MEDS: KETOCONAZOLE 2% TOPICAL CREAM 15 GM TUBE TP SCH (09:18)
[2021-10-09] MEDS ORDERED: PT OWN MED DRAWER 7, Y5N ONE ×2 (09:20→21:07)
[2021-10-09] MEDS: CALCIUM 250MG/VIT-D 125 UNITS 1 COMBO TABLET PO SCH (09:21)
[2021-10-09] MEDS: ACETAMINOPHEN 325 MG TABLET (FP) PO PRN ×3 (12:32→21:56)
[2021-10-09 13:04] VITALS: BMI 34.9
[2021-10-09] MEDS: diphenhydrAMINE HCL 25 MG CAPSULE (FP) PO SCH (21:12)
[2021-10-09] MEDS: ROSUVASTATIN CA 20 MG TABLET (FP) PO SCH (21:12)
[2021-10-10] MEDS: CLINDAMYCIN 600MG PREMIX IVPB 600 MG/50 ML BAG IVPB SCH ×3 (01:35→17:47)
[2021-10-10] MEDS: ACETAMINOPHEN 325 MG TABLET (FP) PO PRN ×4 (06:45→21:47)
[2021-10-10 08:47] LABS: BASO % 0.6 % (0-2.0); EOS % 4.4 % (0-4.5); HEMATOCRIT 31.7 % (32.4-45.2); HEMOGLOBIN 10.4 GM/dL (10.7-15.3); LYMPH % 21.9 % (8-40); MCH 28.5 pg (25.7-33.7); MCHC 32.9 g/dl (32.0-36.0); MEAN CELL VOLUME 86.7 fl (80-96); MEAN PLT VOLUME 8.2 fl (7.5-11.1); MONO % 7.4 % (3.8-10.2); NEUT % 65.7 % (42.8-82.8); PLATELET COUNT 212 10^3/uL (134-434); RBC 3.66 M/mm3 (3.60-5.2); RDW 15.2 % (11.6-15.6); WHITE BLOOD COUNT 6.9 K/mm3 (4.0-10.0)
[2021-10-10] MEDS: POLYETHYLENE GLYCOL (HEALTHYLAX) 3350 17 GM PACKET PO SCH ×2 (10:08→10:18)
[2021-10-10] MEDS: MULTIVITAMINS THER W-MINERALS COMBO TABLET (FP) PO SCH (10:09)
[2021-10-10] MEDS: ASPIRIN COATED 81 MG TABLET.EC PO SCH (10:09)
[2021-10-10] MEDS: AMINO ACIDS/PROTEIN HYDROLYS 30 ML LIQUID.PKT PO SCH ×2 (10:09→17:47)
[2021-10-10] MEDS: CALCIUM 250MG/VIT-D 125 UNITS 1 COMBO TABLET PO SCH (10:09)
[2021-10-10] MEDS: MYCOPHENOLATE MOFETIL 500 MG TABLET PO SCH ×2 (10:09→21:47)
[2021-10-10] MEDS: PANTOPRAZOLE 40 MG TABLET PO SCH (10:09)
[2021-10-10] MEDS: KETOCONAZOLE 2% TOPICAL CREAM 15 GM TUBE TP SCH (10:10)
[2021-10-10] MEDS: diphenhydrAMINE HCL 25 MG CAPSULE (FP) PO SCH (21:47)
[2021-10-10] MEDS: ROSUVASTATIN CA 20 MG TABLET (FP) PO SCH (21:47)
[2021-10-11] MEDS: CLINDAMYCIN 600MG PREMIX IVPB 600 MG/50 ML BAG IVPB SCH ×3 (02:13→17:57)
[2021-10-11] MEDS: AMINO ACIDS/PROTEIN HYDROLYS 30 ML LIQUID.PKT PO SCH ×2 (09:00→17:57)
[2021-10-11] MEDS: MULTIVITAMINS THER W-MINERALS COMBO TABLET (FP) PO SCH (09:42)
[2021-10-11] MEDS: ASPIRIN COATED 81 MG TABLET.EC PO SCH (09:42)
[2021-10-11] MEDS: MYCOPHENOLATE MOFETIL 500 MG TABLET PO SCH ×2 (09:42→21:37)
[2021-10-11] MEDS: PANTOPRAZOLE 40 MG TABLET PO SCH (09:42)
[2021-10-11] MEDS: POLYETHYLENE GLYCOL (HEALTHYLAX) 3350 17 GM PACKET PO SCH (09:43)
[2021-10-11] MEDS: CALCIUM 250MG/VIT-D 125 UNITS 1 COMBO TABLET PO SCH (09:43)
[2021-10-11] MEDS: KETOCONAZOLE 2% TOPICAL CREAM 15 GM TUBE TP SCH (09:45)
[2021-10-11] MEDS: ACETAMINOPHEN 325 MG TABLET (FP) PO PRN (19:27)
[2021-10-11] MEDS: ROSUVASTATIN CA 20 MG TABLET (FP) PO SCH (21:37)
[2021-10-11] MEDS: diphenhydrAMINE HCL 25 MG CAPSULE (FP) PO SCH (21:37)
[2021-10-11] MEDS ORDERED: traMADol HCL 50 MG TABLET PO PRN (21:39)
[2021-10-12] MEDS: CLINDAMYCIN 600MG PREMIX IVPB 600 MG/50 ML BAG IVPB SCH ×3 (01:25→09:42)
[2021-10-12 06:37] VITALS: BP 135/81; PULSE 87; TEMP 98
[2021-10-12] MEDS: AMINO ACIDS/PROTEIN HYDROLYS 30 ML LIQUID.PKT PO SCH (09:13)
[2021-10-12] MEDS: ASPIRIN COATED 81 MG TABLET.EC PO SCH (09:18)
[2021-10-12] MEDS: MYCOPHENOLATE MOFETIL 500 MG TABLET PO SCH (09:18)
[2021-10-12] MEDS: CALCIUM 250MG/VIT-D 125 UNITS 1 COMBO TABLET PO SCH (09:18)
[2021-10-12] MEDS: PANTOPRAZOLE 40 MG TABLET PO SCH (09:18)
[2021-10-12] MEDS: MULTIVITAMINS THER W-MINERALS COMBO TABLET (FP) PO SCH (09:18)
[2021-10-12] MEDS: POLYETHYLENE GLYCOL (HEALTHYLAX) 3350 17 GM PACKET PO SCH (09:20)
[2021-10-12] MEDS: KETOCONAZOLE 2% TOPICAL CREAM 15 GM TUBE TP SCH (09:21)
== END 2021-10-12 13:14 | disposition home health service (06) | DRG 300 ==
LOC: JER 12:07 → JERBED 16:24 → J7W 18:46
PROVIDERS: ADMIT Family Medicine; ATTEND Family Medicine
DX: I83.009 Varicose veins of unspecified lower extremity with ulcer of unspecified site (principal); L97.909 Non-pressure chronic ulcer of unspecified part of unspecified lower leg with unspecified severity; L02.91 Cutaneous abscess, unspecified; L03.115 Cellulitis of right lower limb; L03.116 Cellulitis of left lower limb; M79.604 Pain in right leg; Z96.642 Presence of left artificial hip joint; M54.9 Dorsalgia, unspecified; I87.2 Venous insufficiency (chronic) (peripheral); M25.551 Pain in right hip; M81.0 Age-related osteoporosis without current pathological fracture; I50.9 Heart failure, unspecified; I11.0 Hypertensive heart disease with heart failure; E78.5 Hyperlipidemia, unspecified; I73.9 Peripheral vascular disease, unspecified; L08.9 Local infection of the skin and subcutaneous tissue, unspecified; E66.9 Obesity, unspecified; Z68.35 Body mass index [BMI] 35.0-35.9, adult
CPT/HCPCS: 36415; 71045-TC-FY; 73523-TC-FY; 80048; 80053; 81003; 82803; 83605; 84484; 85025; 85610; 85730; 87040; 87070; 87077; 87086; 87186; 87205; 93005; 93010; 97116-GP; 97162-GP; 99285-25; C9803; J0131; J7517; U0003; U0005

== ENCOUNTER 2022-05-18 15:03 | Inpatient (IN) | payer OTHER ==
[2022-05-18 15:14] VITALS: BMI 35.0
[2022-05-18 16:45] LABS: BASO % 0.5 % (0-2.0); EOS % 0.3 % (0-4.5); HEMATOCRIT 31.8 % (32.4-45.2); HEMOGLOBIN 10.2 GM/dL (10.7-15.3); LYMPH % 10.6 % (8-40); MCH 28.4 pg (25.7-33.7); MCHC 32.2 g/dl (32.0-36.0); MEAN CELL VOLUME 88.4 fl (80-96); MEAN PLT VOLUME 9.2 fl (7.5-11.1); MONO % 4.5 % (3.8-10.2); NEUT % 84.1 % (42.8-82.8); PLATELET COUNT 192 10^3/uL (134-434); RDW 14.8 % (11.6-15.6); WHITE BLOOD COUNT 10.1 K/mm3 (4.0-10.0)
[2022-05-18 16:57] LABS: INR 0.97 (0.83-1.09); PROTHROMBIN TIME (PATIENT) 11.1 SEC (9.7-13.0)
[2022-05-18 17:00] LABS: ACTIVATED PTT 22.8 SECONDS (25.2-36.5)
[2022-05-18 17:11] LABS: CALCIUM 8.3 mg/dL (8.5-10.1)
[2022-05-18 17:12] LABS: ALBUMIN 2.9 g/dl (3.4-5.0); BLOOD UREA NITROGEN 100.5 mg/dL (7-18)
[2022-05-18 17:15] LABS: CREATININE 5.8 mg/dL (0.55-1.3)
[2022-05-18 17:16] LABS: BILIRUBIN,TOTAL 0.4 mg/dL (0.2-1); TOT PROT 6.5 g/dl (6.4-8.2)
[2022-05-18] MEDS ORDERED: SODIUM CHLORIDE 0.9% 500 ML INFUS.BAG IV ONE (17:29)
[2022-05-18] MEDS ORDERED: CLINDAMYCIN 600MG PREMIX IVPB 600 MG/50 ML BAG IVPB ONE ×2 (18:13→18:42)
[2022-05-18] MEDS ORDERED: SODIUM CHLORIDE 1,000 ML IV SCH (18:45)
[2022-05-18] MEDS: ACETAMINOPHEN 1000 MG/100 ML BAG IVPB PRN (21:50)
[2022-05-18] MEDS ORDERED: ACETAMINOPHEN INJECTION 100 ML IVPB ONE (21:52)
[2022-05-18] MEDS ORDERED: CEFTRIAXONE 1 GM/50 ML BAG ONE (22:16)
[2022-05-18] MEDS ORDERED: HEPARIN NA (PORCINE) 5,000 UNITS/ML 1ML VIAL ONE (22:16)
[2022-05-18] MEDS: CEFTRIAXONE 1,000 MG in DEXTROSE 5%-WATER - 50 ML IVPB SCH (22:25)
[2022-05-18] MEDS: HEPARIN NA (PORCINE) 5,000 UNITS/ML 1ML VIAL SQ SCH (22:25)
[2022-05-19] MEDS: ACETAMINOPHEN 1000 MG/100 ML BAG IVPB PRN (05:45)
[2022-05-19] MEDS: HEPARIN NA (PORCINE) 5,000 UNITS/ML 1ML VIAL SQ SCH ×3 (06:21→21:57)
[2022-05-19] MEDS: CLINDAMYCIN 600MG PREMIX IVPB 600 MG/50 ML BAG IVPB SCH ×3 (06:21→21:57)
[2022-05-19 09:34] LABS: HEMATOCRIT 27.6 % (32.4-45.2); MCHC 32.5 g/dl (32.0-36.0); MEAN CELL VOLUME 89.2 fl (80-96); PLATELET COUNT 175 10^3/uL (134-434); RBC 3.09 M/mm3 (3.60-5.2); RDW 14.7 % (11.6-15.6)
[2022-05-19 09:59] LABS: CALCIUM 7.7 mg/dL (8.5-10.1)
[2022-05-19 10:00] LABS: ALBUMIN 2.4 g/dl (3.4-5.0); BLOOD UREA NITROGEN 97.4 mg/dL (7-18); MAGNESIUM 2.1 mg/dL (1.8-2.4)
[2022-05-19 10:03] LABS: CREATININE 5.3 mg/dL (0.55-1.3); PHOSPHOROUS 5.2 mg/dL (2.5-4.9)
[2022-05-19 10:04] LABS: TOT PROT 5.7 g/dl (6.4-8.2)
[2022-05-19 10:05] LABS: BILIRUBIN,TOTAL 0.4 mg/dL (0.2-1)
[2022-05-19] MEDS ORDERED: DEXTROSE 5%-WATER - 50 ML IVPB ONE (11:10)
[2022-05-19] MEDS ORDERED: cefTRIAXone SODIUM 1 GM VIAL ONE (11:10)
[2022-05-19] MEDS: CEFTRIAXONE 1,000 MG in DEXTROSE 5%-WATER - 50 ML IVPB SCH (11:37)
[2022-05-19] MEDS: SODIUM CHLORIDE 1,000 ML IV SCH (18:17)
[2022-05-20] MEDS: SODIUM CHLORIDE 1,000 ML IV SCH ×2 (05:42→20:13)
[2022-05-20] MEDS: CLINDAMYCIN 600MG PREMIX IVPB 600 MG/50 ML BAG IVPB SCH ×3 (05:42→21:47)
[2022-05-20] MEDS: HEPARIN NA (PORCINE) 5,000 UNITS/ML 1ML VIAL SQ SCH ×3 (05:43→21:47)
[2022-05-20] MEDS ORDERED: DEXTROSE 5%-WATER - 50 ML IVPB ONE (09:47)
[2022-05-20] MEDS ORDERED: cefTRIAXone SODIUM 1 GM VIAL ONE (09:47)
[2022-05-20] MEDS: CEFTRIAXONE 1 GM in DEXTROSE 5%-WATER - 50 ML IVPB SCH (10:24)
[2022-05-20 12:20] LABS: BASO % 0.5 % (0-2.0); EOS % 1.1 % (0-4.5); HEMATOCRIT 25.5 % (32.4-45.2); HEMOGLOBIN 8.3 GM/dL (10.7-15.3); LYMPH % 21.8 % (8-40); MCH 28.9 pg (25.7-33.7); MCHC 32.5 g/dl (32.0-36.0); MEAN PLT VOLUME 8.6 fl (7.5-11.1); MONO % 7.8 % (3.8-10.2); NEUT % 68.8 % (42.8-82.8); PLATELET COUNT 233 10^3/uL (134-434); RBC 2.86 M/mm3 (3.60-5.2); RDW 14.6 % (11.6-15.6)
[2022-05-20 12:54] LABS: CALCIUM 7.7 mg/dL (8.5-10.1)
[2022-05-20 12:55] LABS: ALBUMIN 2.2 g/dl (3.4-5.0)
[2022-05-20 12:58] LABS: CREATININE 4.4 mg/dL (0.55-1.3); PHOSPHOROUS 5.6 mg/dL (2.5-4.9)
[2022-05-20 12:59] LABS: BILIRUBIN,TOTAL 0.3 mg/dL (0.2-1)
[2022-05-20 13:00] LABS: MAGNESIUM 1.8 mg/dL (1.8-2.4); TOT PROT 5.3 g/dl (6.4-8.2)
[2022-05-20] MEDS ORDERED: ONDANSETRON 4 MG/2 ML VIAL IVPUSH ONE (13:26)
[2022-05-20] MEDS ORDERED: ONDANSETRON 4 MG/2 ML VIAL ONE (13:28)
[2022-05-20] MEDS: ASPIRIN 81 MG CHEWABLE TABLETS PO SCH (13:29)
[2022-05-20] MEDS: ROSUVASTATIN CA 10 MG TABLET PO SCH (21:47)
[2022-05-20] MEDS: METOPROLOL TARTRATE 50 MG TABLET (FP) PO SCH (21:47)
[2022-05-20] MEDS ORDERED: ROSUVASTATIN CA 20 MG TABLET PO SCH (22:00)
[2022-05-21] MEDS: HEPARIN NA (PORCINE) 5,000 UNITS/ML 1ML VIAL SQ SCH ×3 (05:34→22:33)
[2022-05-21] MEDS: CLINDAMYCIN 600MG PREMIX IVPB 600 MG/50 ML BAG IVPB SCH ×3 (05:34→22:33)
[2022-05-21 07:08] LABS: HEMATOCRIT 24.4 % (32.4-45.2); HEMOGLOBIN 7.9 GM/dL (10.7-15.3); MCH 28.8 pg (25.7-33.7); MCHC 32.3 g/dl (32.0-36.0); MEAN CELL VOLUME 88.9 fl (80-96); MEAN PLT VOLUME 8.3 fl (7.5-11.1); PLATELET COUNT 237 10^3/uL (134-434); RBC 2.74 M/mm3 (3.60-5.2); RDW 14.4 % (11.6-15.6); WHITE BLOOD COUNT 5.1 K/mm3 (4.0-10.0)
[2022-05-21 07:39] LABS: ALBUMIN 2.2 g/dl (3.4-5.0); CALCIUM 7.8 mg/dL (8.5-10.1); MAGNESIUM 1.8 mg/dL (1.8-2.4)
[2022-05-21 07:40] LABS: BLOOD UREA NITROGEN 77.6 mg/dL (7-18)
[2022-05-21 07:42] LABS: CREATININE 3.8 mg/dL (0.55-1.3); PHOSPHOROUS 5.9 mg/dL (2.5-4.9)
[2022-05-21 07:46] LABS: TOT PROT 4.9 g/dl (6.4-8.2)
[2022-05-21 07:47] LABS: BILIRUBIN,TOTAL 0.3 mg/dL (0.2-1)
[2022-05-21 10:19] LABS: ANISOCYTOSIS 0; HELMET CELLS 0; HOWELL-JOLLY BODIES 0; MACROCYTOSIS 0; OVALOCYTE 0; ROULEAU 0; SICKELED CELLS 0; TARGET CELLS 0; TEAR DROP CELLS 0; TOXIC GRANULATION 0
[2022-05-21] MEDS ORDERED: cefTRIAXone SODIUM 1 GM VIAL ONE (10:42)
[2022-05-21] MEDS ORDERED: DEXTROSE 5%-WATER - 50 ML IVPB ONE (10:42)
[2022-05-21] MEDS: ASPIRIN 81 MG CHEWABLE TABLETS PO SCH (10:47)
[2022-05-21] MEDS: CEFTRIAXONE 1 GM in DEXTROSE 5%-WATER - 50 ML IVPB SCH (10:47)
[2022-05-21] MEDS: METOPROLOL TARTRATE 50 MG TABLET (FP) PO SCH ×2 (10:47→22:34)
[2022-05-21 11:07] LABS: ANTIGLOMERULAR BASEMENT MEN.AB 4 units (0-20)
[2022-05-21] MEDS: SODIUM CHLORIDE 1,000 ML IV SCH (13:07)
[2022-05-21] MEDS: SODIUM CHLORIDE 0.45% 1,000 ML IV SCH (14:04)
[2022-05-21] MEDS: ROSUVASTATIN CA 10 MG TABLET PO SCH (22:33)
[2022-05-21] MEDS ORDERED: ACETAMINOPHEN 1000 MG/100 ML BAG IVPB PRN (22:58)
[2022-05-22] MEDS: CLINDAMYCIN 600MG PREMIX IVPB 600 MG/50 ML BAG IVPB SCH ×3 (05:59→20:40)
[2022-05-22] MEDS: HEPARIN NA (PORCINE) 5,000 UNITS/ML 1ML VIAL SQ SCH ×3 (06:05→21:20)
[2022-05-22 09:39] LABS: EPI CELLS 11 /uL (0-25.1); HYALINE CASTS 3 /uL (0-3.1); PH,URINE 5.5 (5.0-8.0); URINE APPEARANCE CLOUDY; URINE BACTERIA 7 /uL (0-1359); URINE BILIRUBIN NEGATIVE (NEGATIVE); URINE COLOR YELLOW; URINE GLUCOSE (UA) NEGATIVE (NEGATIVE); URINE KETONE NEGATIVE (NEGATIVE); URINE LEUK ESTERASE TRACE (NEGATIVE); URINE NITRITE NEGATIVE (NEGATIVE); URINE PROTEIN 2+ (NEGATIVE); URINE UROBILINOGEN 0.2 mg/dL (0.2-1.0); URINE WBC 125 /uL (0-25.8)
[2022-05-22 09:54] LABS: URINE RBC 392 /uL (0-23.9)
[2022-05-22 10:14] LABS: BLOOD UREA NITROGEN 63.5 mg/dL (7-18); CALCIUM 7.9 mg/dL (8.5-10.1)
[2022-05-22 10:15] LABS: ALBUMIN 2.3 g/dl (3.4-5.0)
[2022-05-22 10:18] LABS: CREATININE 3.2 mg/dL (0.55-1.3)
[2022-05-22 10:19] LABS: BILIRUBIN,TOTAL 0.7 mg/dL (0.2-1); TOT PROT 5.4 g/dl (6.4-8.2)
[2022-05-22] MEDS ORDERED: DEXTROSE 5%-WATER - 50 ML IVPB ONE (10:23)
[2022-05-22] MEDS ORDERED: cefTRIAXone SODIUM 1 GM VIAL ONE (10:23)
[2022-05-22] MEDS: METOPROLOL TARTRATE 50 MG TABLET (FP) PO SCH ×2 (10:29→21:20)
[2022-05-22] MEDS: ASPIRIN 81 MG CHEWABLE TABLETS PO SCH (10:29)
[2022-05-22] MEDS: MYCOPHENOLATE MOFETIL 250 MG CAPSULE PO SCH ×2 (10:30→21:43)
[2022-05-22] MEDS: CEFTRIAXONE 1 GM in DEXTROSE 5%-WATER - 50 ML IVPB SCH (10:30)
[2022-05-22 10:38] LABS: YEAST NEGATIVE (NEGATIVE)
[2022-05-22] MEDS ORDERED: ONDANSETRON 4 MG/2 ML VIAL IVPUSH PRN (11:02)
[2022-05-22] MEDS: SODIUM CHLORIDE 0.45% 1,000 ML IV SCH (18:02)
[2022-05-22] MEDS: ROSUVASTATIN CA 10 MG TABLET PO SCH (21:20)
[2022-05-23] MEDS: HEPARIN NA (PORCINE) 5,000 UNITS/ML 1ML VIAL SQ SCH ×3 (05:14→23:25)
[2022-05-23] MEDS: CLINDAMYCIN 600MG PREMIX IVPB 600 MG/50 ML BAG IVPB SCH ×3 (05:14→23:17)
[2022-05-23] MEDS ORDERED: DEXTROSE 5%-WATER - 50 ML IVPB ONE (09:17)
[2022-05-23] MEDS ORDERED: cefTRIAXone SODIUM 1 GM VIAL ONE (09:17)
[2022-05-23 09:19] LABS: ALBUMIN 2.2 g/dl (3.4-5.0); BLOOD UREA NITROGEN 54.4 mg/dL (7-18)
[2022-05-23 09:23] LABS: CREATININE 2.8 mg/dL (0.55-1.3)
[2022-05-23 09:25] LABS: BILIRUBIN,TOTAL 0.3 mg/dL (0.2-1)
[2022-05-23] MEDS: METOPROLOL TARTRATE 50 MG TABLET (FP) PO SCH ×2 (09:51→23:26)
[2022-05-23] MEDS: CEFTRIAXONE 1 GM in DEXTROSE 5%-WATER - 50 ML IVPB SCH (09:51)
[2022-05-23] MEDS: MYCOPHENOLATE MOFETIL 250 MG CAPSULE PO SCH ×2 (09:51→23:25)
[2022-05-23] MEDS: ASPIRIN 81 MG CHEWABLE TABLETS PO SCH (09:51)
[2022-05-23] MEDS: SODIUM CHLORIDE 0.45% 1,000 ML IV SCH (13:08)
[2022-05-23 14:04] LABS: EPI CELLS 24 /uL (0-25.1); HYALINE CASTS 2 /uL (0-3.1); URINE APPEARANCE CLEAR; URINE BACTERIA 16 /uL (0-1359); URINE BILIRUBIN NEGATIVE (NEGATIVE); URINE COLOR YELLOW; URINE GLUCOSE (UA) NEGATIVE (NEGATIVE); URINE KETONE NEGATIVE (NEGATIVE); URINE LEUK ESTERASE NEGATIVE (NEGATIVE); URINE NITRITE NEGATIVE (NEGATIVE); URINE PROTEIN 3+ (NEGATIVE); URINE UROBILINOGEN 0.2 mg/dL (0.2-1.0); URINE WBC 45 /uL (0-25.8)
[2022-05-23 14:17] LABS: URINE RBC 96.2 /uL (0-23.9)
[2022-05-23 14:18] LABS: YEAST NO SEEN (NEGATIVE)
[2022-05-23] MEDS: ROSUVASTATIN CA 10 MG TABLET PO SCH (23:19)
[2022-05-24] MEDS: SODIUM CHLORIDE 0.45% 1,000 ML IV SCH ×2 (01:20→16:07)
[2022-05-24] MEDS: CLINDAMYCIN 600MG PREMIX IVPB 600 MG/50 ML BAG IVPB SCH ×3 (06:08→22:18)
[2022-05-24] MEDS: HEPARIN NA (PORCINE) 5,000 UNITS/ML 1ML VIAL SQ SCH ×3 (06:10→22:24)
[2022-05-24 08:32] LABS: HEMATOCRIT 23.8 % (32.4-45.2); HEMOGLOBIN 7.8 GM/dL (10.7-15.3); MCH 29.2 pg (25.7-33.7); MCHC 32.9 g/dl (32.0-36.0); MEAN CELL VOLUME 88.5 fl (80-96); MEAN PLT VOLUME 8.6 fl (7.5-11.1); PLATELET COUNT 254 10^3/uL (134-434); RBC 2.68 M/mm3 (3.60-5.2); RDW 14.6 % (11.6-15.6); WHITE BLOOD COUNT 6.4 K/mm3 (4.0-10.0)
[2022-05-24 08:52] LABS: ALBUMIN 2.2 g/dl (3.4-5.0); CALCIUM 7.7 mg/dL (8.5-10.1)
[2022-05-24 08:53] LABS: BLOOD UREA NITROGEN 48.9 mg/dL (7-18)
[2022-05-24 08:55] LABS: CREATININE 2.6 mg/dL (0.55-1.3)
[2022-05-24 08:57] LABS: BILIRUBIN,TOTAL 0.3 mg/dL (0.2-1)
[2022-05-24] MEDS ORDERED: cefTRIAXone SODIUM 1 GM VIAL ONE (09:28)
[2022-05-24] MEDS ORDERED: DEXTROSE 5%-WATER - 50 ML IVPB ONE (09:28)
[2022-05-24] MEDS: CEFTRIAXONE 1 GM in DEXTROSE 5%-WATER - 50 ML IVPB SCH (09:37)
[2022-05-24] MEDS: METOPROLOL TARTRATE 50 MG TABLET (FP) PO SCH ×2 (09:38→22:24)
[2022-05-24] MEDS: ASPIRIN 81 MG CHEWABLE TABLETS PO SCH (09:38)
[2022-05-24] MEDS: MYCOPHENOLATE MOFETIL 250 MG CAPSULE PO SCH ×2 (09:38→22:24)
[2022-05-24 13:23] LABS: ANISOCYTOSIS 2+; MACROCYTOSIS 0; OVALOCYTE 2+; TEAR DROP CELLS 1+
[2022-05-24] MEDS: AMMONIUM LACTATE 12% LOTION 225 GM BOTTLE TP SCH (15:37)
[2022-05-24] MEDS: CALCIUM ACETATE/AL SULFATE TOP 1.9 GM/PACKET PACKET TP SCH (15:37)
[2022-05-24] MEDS: ROSUVASTATIN CA 10 MG TABLET PO SCH (22:24)
[2022-05-25] MEDS: CLINDAMYCIN 600MG PREMIX IVPB 600 MG/50 ML BAG IVPB SCH ×3 (06:04→23:07)
[2022-05-25] MEDS: HEPARIN NA (PORCINE) 5,000 UNITS/ML 1ML VIAL SQ SCH ×3 (06:05→23:08)
[2022-05-25 09:31] LABS: HEMATOCRIT 28.1 % (32.4-45.2); MCH 28.9 pg (25.7-33.7); MCHC 32.1 g/dl (32.0-36.0); MEAN CELL VOLUME 90.1 fl (80-96); MEAN PLT VOLUME 8.3 fl (7.5-11.1); PLATELET COUNT 281 10^3/uL (134-434); RBC 3.12 M/mm3 (3.60-5.2); RDW 14.7 % (11.6-15.6); WHITE BLOOD COUNT 7.5 K/mm3 (4.0-10.0)
[2022-05-25] MEDS ORDERED: cefTRIAXone SODIUM 1 GM VIAL ONE (10:01)
[2022-05-25] MEDS ORDERED: DEXTROSE 5%-WATER - 50 ML IVPB ONE (10:01)
[2022-05-25] MEDS: CALCIUM ACETATE/AL SULFATE TOP 1.9 GM/PACKET PACKET TP SCH (10:03)
[2022-05-25] MEDS: AMMONIUM LACTATE 12% LOTION 225 GM BOTTLE TP SCH (10:03)
[2022-05-25] MEDS: METOPROLOL TARTRATE 50 MG TABLET (FP) PO SCH ×2 (10:03→23:08)
[2022-05-25] MEDS: CEFTRIAXONE 1 GM in DEXTROSE 5%-WATER - 50 ML IVPB SCH (10:03)
[2022-05-25] MEDS: ASPIRIN 81 MG CHEWABLE TABLETS PO SCH (10:03)
[2022-05-25] MEDS: MYCOPHENOLATE MOFETIL 250 MG CAPSULE PO SCH ×2 (10:04→23:08)
[2022-05-25 10:12] LABS: BLOOD UREA NITROGEN 41.9 mg/dL (7-18); CALCIUM 8.3 mg/dL (8.5-10.1)
[2022-05-25 10:13] LABS: CREATININE 2.5 mg/dL (0.55-1.3)
[2022-05-25 10:15] LABS: BILIRUBIN,TOTAL 0.3 mg/dL (0.2-1); TOT PROT 6.2 g/dl (6.4-8.2)
[2022-05-25 10:24] LABS: ALBUMIN 2.7 g/dl (3.4-5.0)
[2022-05-25] MEDS: SODIUM CHLORIDE 0.45% 1,000 ML IV SCH ×2 (13:35→14:44)
[2022-05-25] MEDS: ROSUVASTATIN CA 10 MG TABLET PO SCH (23:08)
[2022-05-25] MEDS: SODIUM BICARBONATE 650 MG TABLET PO SCH (23:09)
[2022-05-26] MEDS: HEPARIN NA (PORCINE) 5,000 UNITS/ML 1ML VIAL SQ SCH ×3 (06:57→22:10)
[2022-05-26] MEDS: CLINDAMYCIN 600MG PREMIX IVPB 600 MG/50 ML BAG IVPB SCH ×2 (06:57→13:55)
[2022-05-26] MEDS ORDERED: cefTRIAXone SODIUM 1 GM VIAL ONE (08:57)
[2022-05-26] MEDS ORDERED: DEXTROSE 5%-WATER - 50 ML IVPB ONE (08:57)
[2022-05-26] MEDS: SODIUM BICARBONATE 650 MG TABLET PO SCH ×2 (09:32→22:08)
[2022-05-26] MEDS: METOPROLOL TARTRATE 50 MG TABLET (FP) PO SCH ×2 (09:32→22:10)
[2022-05-26] MEDS: ASPIRIN 81 MG CHEWABLE TABLETS PO SCH (09:32)
[2022-05-26] MEDS: CALCIUM ACETATE/AL SULFATE TOP 1.9 GM/PACKET PACKET TP SCH (09:37)
[2022-05-26] MEDS: MYCOPHENOLATE MOFETIL 250 MG CAPSULE PO SCH ×2 (09:37→22:10)
[2022-05-26 09:38] LABS: CALCIUM 8.2 mg/dL (8.5-10.1)
[2022-05-26] MEDS: AMMONIUM LACTATE 12% LOTION 225 GM BOTTLE TP SCH (09:38)
[2022-05-26 09:39] LABS: ALBUMIN 2.3 g/dl (3.4-5.0)
[2022-05-26 09:42] LABS: CREATININE 2.3 mg/dL (0.55-1.3)
[2022-05-26 09:43] LABS: BILIRUBIN,TOTAL 0.3 mg/dL (0.2-1); TOT PROT 5.2 g/dl (6.4-8.2)
[2022-05-26] MEDS: CEFTRIAXONE 1 GM in DEXTROSE 5%-WATER - 50 ML IVPB SCH (09:43)
[2022-05-26] MEDS: SODIUM CHLORIDE 0.45% 1,000 ML IV SCH (13:59)
[2022-05-26] MEDS: ROSUVASTATIN CA 10 MG TABLET PO SCH (22:10)
[2022-05-27] MEDS: HEPARIN NA (PORCINE) 5,000 UNITS/ML 1ML VIAL SQ SCH ×3 (06:37→22:48)
[2022-05-27 09:07] LABS: BASO % 1.1 % (0-2.0); EOS % 0.9 % (0-4.5); HEMOGLOBIN 9.5 GM/dL (10.7-15.3); LYMPH % 22.4 % (8-40); MCH 28.3 pg (25.7-33.7); MCHC 31.6 g/dl (32.0-36.0); MEAN CELL VOLUME 89.8 fl (80-96); MEAN PLT VOLUME 8.8 fl (7.5-11.1); MONO % 6.8 % (3.8-10.2); NEUT % 68.8 % (42.8-82.8); PLATELET COUNT 283 10^3/uL (134-434); RBC 3.34 M/mm3 (3.60-5.2); RDW 14.8 % (11.6-15.6); WHITE BLOOD COUNT 6.5 K/mm3 (4.0-10.0)
[2022-05-27 09:29] LABS: CALCIUM 8.7 mg/dL (8.5-10.1)
[2022-05-27 09:30] LABS: BLOOD UREA NITROGEN 35.3 mg/dL (7-18)
[2022-05-27 09:32] LABS: CREATININE 2.2 mg/dL (0.55-1.3)
[2022-05-27 09:34] LABS: BILIRUBIN,TOTAL 0.5 mg/dL (0.2-1); TOT PROT 6.4 g/dl (6.4-8.2)
[2022-05-27] MEDS: METOPROLOL TARTRATE 50 MG TABLET (FP) PO SCH ×2 (10:19→22:48)
[2022-05-27] MEDS: AMOX TR/POT CLAV 875MG/125MG TABLETS (FP) PO SCH ×2 (10:19→17:46)
[2022-05-27] MEDS: ASPIRIN 81 MG CHEWABLE TABLETS PO SCH (10:19)
[2022-05-27] MEDS: MYCOPHENOLATE MOFETIL 250 MG CAPSULE PO SCH ×2 (10:19→22:47)
[2022-05-27] MEDS: SODIUM BICARBONATE 650 MG TABLET PO SCH ×2 (10:19→22:48)
[2022-05-27] MEDS: CALCIUM ACETATE/AL SULFATE TOP 1.9 GM/PACKET PACKET TP SCH (10:21)
[2022-05-27] MEDS: AMMONIUM LACTATE 12% LOTION 225 GM BOTTLE TP SCH (10:22)
[2022-05-27] MEDS: SODIUM CHLORIDE 0.45% 1,000 ML IV SCH (15:12)
[2022-05-27] MEDS: ROSUVASTATIN CA 10 MG TABLET PO SCH (22:48)
[2022-05-28] MEDS: HEPARIN NA (PORCINE) 5,000 UNITS/ML 1ML VIAL SQ SCH ×2 (05:24→13:43)
[2022-05-28] MEDS: SODIUM CHLORIDE 0.45% 1,000 ML IV SCH (08:20)
[2022-05-28 08:51] LABS: ALBUMIN 2.8 g/dl (3.4-5.0); BLOOD UREA NITROGEN 33.8 mg/dL (7-18); CALCIUM 8.8 mg/dL (8.5-10.1)
[2022-05-28 08:56] LABS: BILIRUBIN,TOTAL 0.4 mg/dL (0.2-1); TOT PROT 6.1 g/dl (6.4-8.2)
[2022-05-28] MEDS: AMOX TR/POT CLAV 875MG/125MG TABLETS (FP) PO SCH (09:05)
[2022-05-28] MEDS: ASPIRIN 81 MG CHEWABLE TABLETS PO SCH (10:55)
[2022-05-28] MEDS: MYCOPHENOLATE MOFETIL 250 MG CAPSULE PO SCH (10:56)
[2022-05-28] MEDS: SODIUM BICARBONATE 650 MG TABLET PO SCH (10:56)
[2022-05-28] MEDS: METOPROLOL TARTRATE 50 MG TABLET (FP) PO SCH (10:57)
[2022-05-28 10:59] LABS: EPI CELLS 4 /uL (0-25.1); HYALINE CASTS 0 /uL (0-3.1); PH,URINE 5.5 (5.0-8.0); URINE APPEARANCE CLEAR; URINE BACTERIA 4 /uL (0-1359); URINE BILIRUBIN NEGATIVE (NEGATIVE); URINE COLOR YELLOW; URINE GLUCOSE (UA) NEGATIVE (NEGATIVE); URINE KETONE NEGATIVE (NEGATIVE); URINE LEUK ESTERASE NEGATIVE (NEGATIVE); URINE NITRITE NEGATIVE (NEGATIVE); URINE PROTEIN 2+ (NEGATIVE); URINE RBC 185 /uL (0-23.9); URINE UROBILINOGEN 0.2 mg/dL (0.2-1.0); URINE WBC 13 /uL (0-25.8)
[2022-05-28] MEDS ORDERED: SILVER SULFADIAZINE 1% TOP CREAM 400 GM JAR TP SCH ×2 (13:00)
[2022-05-28 14:24] VITALS: BP 145/71; PULSE 84; TEMP 97.4
[2022-05-28] MEDS: AMMONIUM LACTATE 12% LOTION 225 GM BOTTLE TP SCH (14:30)
[2022-05-28] MEDS: CALCIUM ACETATE/AL SULFATE TOP 1.9 GM/PACKET PACKET TP SCH ×2 (14:31→15:13)
== END 2022-05-28 15:55 | disposition home or self-care (01) | DRG 603 ==
LOC: JER 15:03 → JERBED 17:41 → J7W 05-19 05:09
PROVIDERS: ADMIT Internal Medicine; ATTEND Internal Medicine
DX: L03.116 Cellulitis of left lower limb (principal); N17.9 Acute kidney failure, unspecified; I13.0 Hypertensive heart and chronic kidney disease with heart failure and stage 1 through stage 4 chronic kidney disease, or unspecified chronic kidney disease; M31.7 Microscopic polyangiitis; E78.5 Hyperlipidemia, unspecified; M81.0 Age-related osteoporosis without current pathological fracture; I50.9 Heart failure, unspecified; N18.9 Chronic kidney disease, unspecified; Z68.35 Body mass index [BMI] 35.0-35.9, adult; E66.01 Morbid (severe) obesity due to excess calories; D64.9 Anemia, unspecified; I87.2 Venous insufficiency (chronic) (peripheral); I77.6 Arteritis, unspecified
CPT/HCPCS: 36415; 71045-TC-FY; 76775-TC; 76856-TC; 80048; 80053; 81003; 82436; 82550; 82570; 83516; 83520; 83735; 84100; 84133; 84155; 84156; 84165; 84300; 84484; 84540; 85025; 85027; 85610; 85730; 86038; 86160; 86225; 86235; 86256; 87040; 87086; 93005; 93010; 93971-TC; 97116-GP; 97161-GP; 99285-25; C9803-CS; E0186; J1644; J7517; U0003; U0005

== ENCOUNTER 2022-06-27 04:13 | Day surgery (SDC) | payer OTHER ==
[2022-06-26 14:42] VITALS: BMI 35.0
[2022-06-27 09:43] LABS: INR 0.94 (0.83-1.09); PROTHROMBIN TIME (PATIENT) 10.8 SEC (9.7-13.0)
[2022-06-27] MEDS ORDERED: MIDAZOLAM HCL 2 MG/2 ML SINGLE DOSE VIAL ONE (10:17)
[2022-06-27] MEDS: MIDAZOLAM HCL 2 MG/2 ML SINGLE DOSE VIAL IVPB SCH ×2 (11:03→11:32)
[2022-06-27] MEDS ORDERED: LABETALOL HCL 5 MG/1 ML (100MG/20 ML VIAL) ONE (11:06)
[2022-06-27] MEDS ORDERED: ACETAMINOPHEN INJECTION 100 ML IVPB ONE (12:30)
[2022-06-27] MEDS ORDERED: SODIUM CHLORIDE 500 ML IV ONE (12:45)
[2022-06-27 14:33] VITALS: TEMP 97.1
[2022-06-27 14:37] VITALS: RESP 20
[2022-06-27 16:05] VITALS: BP 116/62; PULSE 56
== END 2022-06-27 16:00 | disposition home or self-care (01) ==
LOC: JRADIR 04:13
PROVIDERS: ATTEND Internal Medicine
PROC: 0TB03ZX Excision of Right Kidney, Percutaneous Approach, Diagnostic (ICD-10-PCS; principal; 2022-06-27)
DX: N05.0 Unspecified nephritic syndrome with minor glomerular abnormality (principal)
CPT/HCPCS: 36415; 50200; 71045-TC-FY; 85610; 88300-TC; 88329

== ENCOUNTER 2022-07-26 07:19 | Day surgery (SDC) | payer OTHER ==
[2022-07-26 08:35] VITALS: RESP 20; TEMP 98.4
[2022-07-26 09:33] LABS: BASO % 0.2 % (0-2.0); HEMATOCRIT 34.8 % (32.4-45.2); HEMOGLOBIN 11.4 GM/dL (10.7-15.3); LYMPH % 6.2 % (8-40); MCHC 32.6 g/dl (32.0-36.0); MEAN PLT VOLUME 8.5 fl (7.5-11.1); MONO % 3.5 % (3.8-10.2); NEUT % 90.1 % (42.8-82.8); PLATELET COUNT 91 10^3/uL (134-434); RBC 3.91 M/mm3 (3.60-5.2); RDW 15.3 % (11.6-15.6); WHITE BLOOD COUNT 7.2 K/mm3 (4.0-10.0)
[2022-07-26] MEDS ORDERED: ACETAMINOPHEN 500 MG TABLET (FP) PO ONE ×2 (09:45→10:00)
[2022-07-26 09:47] LABS: BLOOD UREA NITROGEN 59.5 mg/dL (7-18); CALCIUM 8.3 mg/dL (8.5-10.1)
[2022-07-26 09:50] LABS: CREATININE 1.7 mg/dL (0.55-1.3)
[2022-07-26] MEDS ORDERED: METHYLPREDNISOLONE NA SUCC 100 MG in SODIUM CHLORIDE 50 ML IVPB ONE (10:00)
[2022-07-26] MEDS ORDERED: diphenhydrAMINE HCL 25 MG CAPSULE (FP) PO ONE (10:00)
[2022-07-26 10:07] LABS: EPI CELLS 16 /uL (0-25.1); HYALINE CASTS 1 /uL (0-3.1); URINE APPEARANCE CLEAR; URINE BACTERIA 33 /uL (0-1359); URINE BILIRUBIN NEGATIVE (NEGATIVE); URINE COLOR YELLOW; URINE GLUCOSE (UA) NEGATIVE (NEGATIVE); URINE KETONE NEGATIVE (NEGATIVE); URINE LEUK ESTERASE NEGATIVE (NEGATIVE); URINE NITRITE NEGATIVE (NEGATIVE); URINE PROTEIN 3+ (NEGATIVE); URINE RBC 281 /uL (0-23.9); URINE UROBILINOGEN 0.2 mg/dL (0.2-1.0); URINE WBC 29 /uL (0-25.8)
[2022-07-26] MEDS ORDERED: RITUXIMAB-ABBS 1,000 MG in DEXTROSE 5%-WATER - 400 ML IVPB ONE (10:30)
[2022-07-26 14:49] VITALS: BP 178/68; PULSE 49
== END 2022-07-26 14:30 | disposition home or self-care (01) ==
LOC: JCHEMO 07:19
PROVIDERS: ATTEND Internal Medicine Rheumatology
DX: M31.7 Microscopic polyangiitis (principal)
CPT/HCPCS: 36415; 80048; 81003; 85025; 96375; 96413; 96415; Q5115

== ENCOUNTER 2022-08-08 11:55 | Inpatient (IN) | payer OTHER ==
[2022-08-08] MEDS ORDERED: ACETAMINOPHEN 1000 MG/100 ML BAG IVPB ONE (14:13)
[2022-08-08] MEDS ORDERED: ACETAMINOPHEN INJECTION 100 ML IVPB ONE (14:46)
[2022-08-08 15:50] LABS: HEMATOCRIT 32.7 % (32.4-45.2); HEMOGLOBIN 10.6 GM/dL (10.7-15.3); MCHC 32.5 g/dl (32.0-36.0); MEAN CELL VOLUME 89.2 fl (80-96); MEAN PLT VOLUME 9.8 fl (7.5-11.1); PLATELET COUNT 68 10^3/uL (134-434); RBC 3.66 M/mm3 (3.60-5.2); RDW 15.2 % (11.6-15.6); WHITE BLOOD COUNT 5.7 K/mm3 (4.0-10.0)
[2022-08-08 15:55] LABS: EPI CELLS 3 /uL (0-25.1); HYALINE CASTS 0 /uL (0-3.1); PH,URINE 5.5 (5.0-8.0); URINE APPEARANCE CLOUDY; URINE BACTERIA >9,000 /uL (0-1359); URINE BILIRUBIN NEGATIVE (NEGATIVE); URINE COLOR YELLOW; URINE GLUCOSE (UA) NEGATIVE (NEGATIVE); URINE KETONE NEGATIVE (NEGATIVE); URINE LEUK ESTERASE 2+ (NEGATIVE); URINE NITRITE POSITIVE (NEGATIVE); URINE PROTEIN 3+ (NEGATIVE); URINE RBC 131 /uL (0-23.9); URINE UROBILINOGEN 0.2 mg/dL (0.2-1.0); URINE WBC 1154 /uL (0-25.8)
[2022-08-08 16:01] LABS: INR 0.97 (0.83-1.09); PROTHROMBIN TIME (PATIENT) 11.1 SEC (9.7-13.0)
[2022-08-08 16:04] LABS: ACTIVATED PTT 20.1 SECONDS (25.2-36.5)
[2022-08-08 16:18] LABS: ALBUMIN 2.5 g/dl (3.4-5.0); CALCIUM 8.2 mg/dL (8.5-10.1)
[2022-08-08 16:21] LABS: CREATININE 1.9 mg/dL (0.55-1.3)
[2022-08-08 16:22] LABS: BILIRUBIN,TOTAL 0.4 mg/dL (0.2-1)
[2022-08-08 16:23] LABS: TOT PROT 5.6 g/dl (6.4-8.2)
[2022-08-08 16:26] LABS: N-TERMINAL BNP 881.8 pg/ml (5-125)
[2022-08-08] MEDS ORDERED: CEFTRIAXONE 1 GM in DEXTROSE 5%-WATER - 100 ML IVPB ONE (16:29)
[2022-08-08] MEDS ORDERED: NYSTATIN 100,000 UNIT/GM TOPICAL CREAM 15 GM TUBE TP ONE (16:30)
[2022-08-08 16:36] LABS: ANISOCYTOSIS 0; HELMET CELLS 0; HOWELL-JOLLY BODIES 0; MACROCYTOSIS 0; OVALOCYTE 0; ROULEAU 0; SICKELED CELLS 0; TARGET CELLS 0; TEAR DROP CELLS 0; TOXIC GRANULATION 0
[2022-08-08] MEDS ORDERED: CEFTRIAXONE 1 GM/50 ML BAG ONE (16:42)
[2022-08-08] MEDS ORDERED: HEPARIN NA (PORCINE) 5,000 UNITS/ML 1ML VIAL SQ ONE (21:19)
[2022-08-08] MEDS: HEPARIN NA (PORCINE) 5,000 UNITS/ML 1ML VIAL SQ SCH (22:52)
[2022-08-08] MEDS: LACTATED RINGERS SOLUTION 1,000 ML/1,000 ML INFUS.BAG IV SCH (22:53)
[2022-08-09] MEDS ORDERED: PIPERACILLIN/TAZOB 3.375 GM 3.375 GM in DEXTROSE 5%-WATER - 50 ML IVPB SCH (02:00)
[2022-08-09] MEDS: HEPARIN NA (PORCINE) 5,000 UNITS/ML 1ML VIAL SQ SCH ×3 (06:08→21:45)
[2022-08-09] MEDS ORDERED: ACETAMINOPHEN 1000 MG/100 ML BAG IVPB ONE (06:15)
[2022-08-09] MEDS: LACTATED RINGERS SOLUTION 1,000 ML/1,000 ML INFUS.BAG IV SCH ×2 (07:14→21:44)
[2022-08-09] MEDS: KETOCONAZOLE 2% TOPICAL CREAM 15 GM TUBE TP SCH ×2 (09:58→21:48)
[2022-08-09] MEDS: HYDROCORTISONE 1% TOPICAL CREAM 30 GM TUBE TP SCH ×2 (09:58→21:47)
[2022-08-09 10:05] LABS: HEMATOCRIT 27.4 % (32.4-45.2); HEMOGLOBIN 8.8 GM/dL (10.7-15.3); MCH 28.4 pg (25.7-33.7); MCHC 32.2 g/dl (32.0-36.0); MEAN CELL VOLUME 88.2 fl (80-96); MEAN PLT VOLUME 9.2 fl (7.5-11.1); PLATELET COUNT 46 10^3/uL (134-434); RDW 15.2 % (11.6-15.6); WHITE BLOOD COUNT 2.7 K/mm3 (4.0-10.0)
[2022-08-09 10:28] LABS: ANISOCYTOSIS 0; HELMET CELLS 0; HOWELL-JOLLY BODIES 0; MACROCYTOSIS 0; OVALOCYTE 0; ROULEAU 0; SICKELED CELLS 0; TARGET CELLS 0; TEAR DROP CELLS 0; TOXIC GRANULATION 0
[2022-08-09 10:34] LABS: BLOOD UREA NITROGEN 62.7 mg/dL (7-18)
[2022-08-09 10:37] LABS: CREATININE 1.8 mg/dL (0.55-1.3)
[2022-08-09 10:38] LABS: TOT PROT 4.3 g/dl (6.4-8.2)
[2022-08-09 10:39] LABS: BILIRUBIN,TOTAL 0.5 mg/dL (0.2-1)
[2022-08-09 10:56] LABS: ALBUMIN 1.8 g/dl (3.4-5.0)
[2022-08-09] MEDS: PIPERACILLIN/TAZOB 2.25 GM 2.25 GM in DEXTROSE 5%-WATER - 50 ML IVPB SCH ×2 (16:40→21:44)
[2022-08-10] MEDS ORDERED: PIPERACILLIN/TAZOB 3.375 GM 3.375 GM in DEXTROSE 5%-WATER - 50 ML IVPB SCH (02:00)
[2022-08-10] MEDS: PIPERACILLIN/TAZOB 2.25 GM 2.25 GM in DEXTROSE 5%-WATER - 50 ML IVPB SCH ×4 (03:09→21:48)
[2022-08-10] MEDS: HEPARIN NA (PORCINE) 5,000 UNITS/ML 1ML VIAL SQ SCH ×3 (05:46→21:50)
[2022-08-10 09:20] LABS: HEMATOCRIT 26.9 % (32.4-45.2); HEMOGLOBIN 8.8 GM/dL (10.7-15.3); MCH 28.9 pg (25.7-33.7); MCHC 32.7 g/dl (32.0-36.0); MEAN CELL VOLUME 88.5 fl (80-96); MEAN PLT VOLUME 10.2 fl (7.5-11.1); PLATELET COUNT 45 10^3/uL (134-434); RBC 3.04 M/mm3 (3.60-5.2); RDW 15.1 % (11.6-15.6); WHITE BLOOD COUNT 3.5 K/mm3 (4.0-10.0)
[2022-08-10 09:33] LABS: CALCIUM 7.9 mg/dL (8.5-10.1)
[2022-08-10 09:34] LABS: BLOOD UREA NITROGEN 54.2 mg/dL (7-18)
[2022-08-10 09:37] LABS: CREATININE 1.9 mg/dL (0.55-1.3)
[2022-08-10] MEDS: POLYETHYLENE GLYCOL (HEALTHYLAX) 3350 17 GM PACKET PO SCH (09:40)
[2022-08-10] MEDS: KETOCONAZOLE 2% TOPICAL CREAM 15 GM TUBE TP SCH ×2 (09:43→21:51)
[2022-08-10] MEDS: PANTOPRAZOLE SODIUM 40 MG VIAL IVPUSH SCH (09:43)
[2022-08-10] MEDS: HYDROCORTISONE 1% TOPICAL CREAM 30 GM TUBE TP SCH ×2 (09:43→21:51)
[2022-08-10] MEDS: LACTATED RINGERS SOLUTION 1,000 ML/1,000 ML INFUS.BAG IV SCH (09:50)
[2022-08-10 10:07] LABS: ANISOCYTOSIS 1+; MACROCYTOSIS 0; PLATELET ESTIMATE DECREASED
[2022-08-10] MEDS ORDERED: DEXTROSE 5%-0.45% SALINE 995 ML with POTASSIUM CHLORIDE 10 MEQ IV SCH (14:30)
[2022-08-10] MEDS ORDERED: POTASSIUM CHLORIDE ORAL LIQUID 20 MEQ/15 ML PO ONE (14:31)
[2022-08-10] MEDS: KCL 10 MEQ IVPB 10 MEQ/100 ML INFUS.BAG IVPB SCH ×2 (14:40→15:56)
[2022-08-10] MEDS: predniSONE 20 MG TABLET (UD) PO SCH (14:41)
[2022-08-10] MEDS: D5-1/2NS+10 MEQ KCL - 10 MEQ/1,000 ML INFUS.BAG IV SCH (15:07)
[2022-08-10] MEDS ORDERED: MYCOPHENOLATE MOFETIL 250 MG CAPSULE PO SCH ×2 (22:00)
[2022-08-11] MEDS: PIPERACILLIN/TAZOB 2.25 GM 2.25 GM in DEXTROSE 5%-WATER - 50 ML IVPB SCH ×3 (02:47→14:02)
[2022-08-11] MEDS: HEPARIN NA (PORCINE) 5,000 UNITS/ML 1ML VIAL SQ SCH (05:08)
[2022-08-11 09:15] LABS: HEMATOCRIT 23.9 % (32.4-45.2); HEMOGLOBIN 7.6 GM/dL (10.7-15.3); MCH 28.6 pg (25.7-33.7); MCHC 31.8 g/dl (32.0-36.0); MEAN PLT VOLUME 10.1 fl (7.5-11.1); PLATELET COUNT 40 10^3/uL (134-434); RBC 2.65 M/mm3 (3.60-5.2); RDW 15.6 % (11.6-15.6); WHITE BLOOD COUNT 2.7 K/mm3 (4.0-10.0)
[2022-08-11 09:43] LABS: BLOOD UREA NITROGEN 45.9 mg/dL (7-18); CALCIUM 7.6 mg/dL (8.5-10.1)
[2022-08-11 09:47] LABS: CREATININE 1.9 mg/dL (0.55-1.3)
[2022-08-11] MEDS: predniSONE 20 MG TABLET (UD) PO SCH (10:58)
[2022-08-11] MEDS: POLYETHYLENE GLYCOL (HEALTHYLAX) 3350 17 GM PACKET PO SCH (10:59)
[2022-08-11] MEDS: PANTOPRAZOLE SODIUM 40 MG VIAL IVPUSH SCH (10:59)
[2022-08-11] MEDS: KETOCONAZOLE 2% TOPICAL CREAM 15 GM TUBE TP SCH ×2 (11:00→21:50)
[2022-08-11] MEDS: HYDROCORTISONE 1% TOPICAL CREAM 30 GM TUBE TP SCH ×2 (11:01→21:49)
[2022-08-11 11:07] LABS: ANISOCYTOSIS 2+; MACROCYTOSIS 1+; OVALOCYTE 1+
[2022-08-11] MEDS ORDERED: HEPARIN NA (PORCINE) 5,000 UNITS/ML 1ML VIAL IVPUSH PRN ×2 (11:51)
[2022-08-11] MEDS: HEPARIN INFUSION - 25,000 UNITS/500 ML INFUS.BAG IVPB SCH (15:22)
[2022-08-11] MEDS: CEFTRIAXONE 1 GM in DEXTROSE 5%-WATER - 50 ML IVPB SCH (21:48)
[2022-08-12] MEDS: D5-1/2NS+10 MEQ KCL - 10 MEQ/1,000 ML INFUS.BAG IV SCH (09:49)
[2022-08-12] MEDS: HYDROCORTISONE 1% TOPICAL CREAM 30 GM TUBE TP SCH ×2 (09:50→22:32)
[2022-08-12] MEDS: CEFTRIAXONE 1 GM in DEXTROSE 5%-WATER - 50 ML IVPB SCH (09:50)
[2022-08-12] MEDS: PANTOPRAZOLE SODIUM 40 MG VIAL IVPUSH SCH (09:50)
[2022-08-12] MEDS: KETOCONAZOLE 2% TOPICAL CREAM 15 GM TUBE TP SCH ×2 (09:50→22:33)
[2022-08-12] MEDS: POLYETHYLENE GLYCOL (HEALTHYLAX) 3350 17 GM PACKET PO SCH (09:51)
[2022-08-12] MEDS: predniSONE 20 MG TABLET (UD) PO SCH (09:51)
[2022-08-12 10:05] LABS: ACTIVATED PTT 62.3 SECONDS (25.2-36.5); INR 1.02 (0.83-1.09); PROTHROMBIN TIME (PATIENT) 11.7 SEC (9.7-13.0)
[2022-08-12] MEDS ORDERED: LOPERAMIDE HCL 2 MG CAPSULE PO PRN (12:22)
[2022-08-12] MEDS: SODIUM CHLORIDE 1,000 ML IV SCH (12:38)
[2022-08-12] MEDS: HEPARIN INFUSION - 25,000 UNITS/500 ML INFUS.BAG IVPB SCH (12:39)
[2022-08-12 13:12] LABS: HEMATOCRIT 27.1 % (32.4-45.2); HEMOGLOBIN 8.8 GM/dL (10.7-15.3); MCH 28.8 pg (25.7-33.7); MCHC 32.4 g/dl (32.0-36.0); MEAN CELL VOLUME 88.8 fl (80-96); MEAN PLT VOLUME 8.3 fl (7.5-11.1); PLATELET COUNT 50 10^3/uL (134-434); RBC 3.05 M/mm3 (3.60-5.2); RDW 14.8 % (11.6-15.6); WHITE BLOOD COUNT 2.6 K/mm3 (4.0-10.0)
[2022-08-12 13:26] LABS: BLOOD UREA NITROGEN 39.8 mg/dL (7-18); CALCIUM 7.9 mg/dL (8.5-10.1)
[2022-08-12 13:29] LABS: CREATININE 1.9 mg/dL (0.55-1.3)
[2022-08-12 14:55] LABS: ANISOCYTOSIS 0; MACROCYTOSIS 0
[2022-08-13] MEDS: SODIUM CHLORIDE 1,000 ML IV SCH ×2 (06:31→15:23)
[2022-08-13 09:49] LABS: HEMATOCRIT 24.4 % (32.4-45.2); HEMOGLOBIN 7.9 GM/dL (10.7-15.3); MCH 28.7 pg (25.7-33.7); MCHC 32.5 g/dl (32.0-36.0); MEAN CELL VOLUME 88.5 fl (80-96); MEAN PLT VOLUME 8.7 fl (7.5-11.1); PLATELET COUNT 66 10^3/uL (134-434); RBC 2.76 M/mm3 (3.60-5.2); RDW 14.7 % (11.6-15.6); WHITE BLOOD COUNT 2.1 K/mm3 (4.0-10.0)
[2022-08-13] MEDS: PANTOPRAZOLE SODIUM 40 MG VIAL IVPUSH SCH (09:51)
[2022-08-13] MEDS: HEPARIN INFUSION - 25,000 UNITS/500 ML INFUS.BAG IVPB SCH ×2 (09:54→15:23)
[2022-08-13] MEDS: POLYETHYLENE GLYCOL (HEALTHYLAX) 3350 17 GM PACKET PO SCH (09:54)
[2022-08-13] MEDS: CEFTRIAXONE 1 GM in DEXTROSE 5%-WATER - 50 ML IVPB SCH (09:55)
[2022-08-13] MEDS: predniSONE 20 MG TABLET (UD) PO SCH (09:55)
[2022-08-13] MEDS: KETOCONAZOLE 2% TOPICAL CREAM 15 GM TUBE TP SCH ×2 (09:55→21:56)
[2022-08-13] MEDS: HYDROCORTISONE 1% TOPICAL CREAM 30 GM TUBE TP SCH ×2 (09:55→21:55)
[2022-08-13 09:57] LABS: BLOOD UREA NITROGEN 45.6 mg/dL (7-18); CALCIUM 7.9 mg/dL (8.5-10.1)
[2022-08-13 10:00] LABS: CREATININE 1.6 mg/dL (0.55-1.3)
[2022-08-13] MEDS ORDERED: POTASSIUM CHLORIDE ORAL LIQUID 20 MEQ/15 ML PO ONE (10:54)
[2022-08-13 11:28] LABS: ANISOCYTOSIS 2+; MACROCYTOSIS 0; OVALOCYTE 2+; TOXIC GRANULATION 2+
[2022-08-13] MEDS: POTASSIUM CHLORIDE 10 MEQ in SODIUM CHLORIDE 0.45% 1,000 ML IVPB SCH (17:17)
[2022-08-14 08:29] LABS: HEMOGLOBIN 7.9 GM/dL (10.7-15.3); MCH 28.9 pg (25.7-33.7); MCHC 32.7 g/dl (32.0-36.0); MEAN CELL VOLUME 88.3 fl (80-96); PLATELET COUNT 62 10^3/uL (134-434); RBC 2.72 M/mm3 (3.60-5.2)
[2022-08-14 08:45] LABS: BLOOD UREA NITROGEN 47.2 mg/dL (7-18); CALCIUM 7.9 mg/dL (8.5-10.1)
[2022-08-14 08:48] LABS: CREATININE 1.6 mg/dL (0.55-1.3)
[2022-08-14] MEDS: PANTOPRAZOLE SODIUM 40 MG VIAL IVPUSH SCH (09:48)
[2022-08-14] MEDS: CEFTRIAXONE 1 GM in DEXTROSE 5%-WATER - 50 ML IVPB SCH (09:48)
[2022-08-14] MEDS: POTASSIUM CHLORIDE 10 MEQ in SODIUM CHLORIDE 0.45% 1,000 ML IVPB SCH ×2 (09:48→18:15)
[2022-08-14] MEDS: KETOCONAZOLE 2% TOPICAL CREAM 15 GM TUBE TP SCH ×2 (09:49→21:44)
[2022-08-14] MEDS: POLYETHYLENE GLYCOL (HEALTHYLAX) 3350 17 GM PACKET PO SCH (09:49)
[2022-08-14] MEDS: predniSONE 20 MG TABLET (UD) PO SCH (09:49)
[2022-08-14] MEDS: HYDROCORTISONE 1% TOPICAL CREAM 30 GM TUBE TP SCH ×2 (09:49→21:45)
[2022-08-14 10:02] LABS: ANISOCYTOSIS 0; MACROCYTOSIS 0
[2022-08-14 13:29] LABS: EPI CELLS >36 /uL (0-25.1); HYALINE CASTS 1 /uL (0-3.1); PH,URINE 5.5 (5.0-8.0); URINE APPEARANCE CLEAR; URINE BACTERIA 12 /uL (0-1359); URINE BILIRUBIN NEGATIVE (NEGATIVE); URINE COLOR YELLOW; URINE GLUCOSE (UA) TRACE (NEGATIVE); URINE KETONE NEGATIVE (NEGATIVE); URINE LEUK ESTERASE 2+ (NEGATIVE); URINE NITRITE NEGATIVE (NEGATIVE); URINE PROTEIN 2+ (NEGATIVE); URINE UROBILINOGEN 0.2 mg/dL (0.2-1.0); URINE WBC 352 /uL (0-25.8)
[2022-08-14 14:17] LABS: URINE RBC 55 /uL (0-23.9)
[2022-08-14] MEDS: HEPARIN INFUSION - 25,000 UNITS/500 ML INFUS.BAG IVPB SCH (14:33)
[2022-08-14] MEDS ORDERED: INSULIN (LEVEMIR) 100 UNITS/ML UNITS SQ ONE (21:12)
[2022-08-14] MEDS ORDERED: INSULIN (LEVEMIR) 100 UNITS/ML UNITS SQ SCH (22:00)
[2022-08-14] MEDS ORDERED: MUPIROCIN 2% TOPICAL OINTMENT FOR DECOLONIZATION NS SCH ×2 (22:00→22:30)
[2022-08-14] MEDS ORDERED: CHLORHEXIDINE GLUCONATE 4% CLEANSER FOR DECOLONIZATION TP SCH (22:00)
[2022-08-14] MEDS ORDERED: HEPARIN INFUSION - 25,000 UNITS/500 ML INFUS.BAG IVPB SCH (23:11)
[2022-08-14] MEDS ORDERED: HEPARIN NA (PORCINE) 5,000 UNITS/ML 1ML VIAL IVPUSH PRN ×4 (23:11)
[2022-08-15] MEDS ORDERED: LACTATED RINGERS SOLUTION 1,000 ML/1,000 ML INFUS.BAG IV STA ×2 (01:00→02:37)
[2022-08-15] MEDS ORDERED: FLUCONAZOLE 400 MG/NS 200 ML IVPB ONE (01:03)
[2022-08-15 02:13] LABS: HEMATOCRIT 19.6 % (32.4-45.2); MCH 28.7 pg (25.7-33.7); MCHC 32.8 g/dl (32.0-36.0); MEAN CELL VOLUME 87.7 fl (80-96); MEAN PLT VOLUME 11.4 fl (7.5-11.1); PLATELET COUNT 71 10^3/uL (134-434); RBC 2.24 M/mm3 (3.60-5.2); RDW 14.5 % (11.6-15.6); WHITE BLOOD COUNT 3.3 K/mm3 (4.0-10.0)
[2022-08-15] MEDS: PIPERACILLIN/TAZOB 2.25 GM 2.25 GM in DEXTROSE 5%-WATER - 50 ML IVPB SCH ×3 (02:15→14:06)
[2022-08-15 02:17] LABS: ACTIVATED PTT 63.2 SECONDS (25.2-36.5)
[2022-08-15 02:23] LABS: HEMOGLOBIN 6.4 GM/dL (10.7-15.3)
[2022-08-15 02:55] LABS: BLOOD UREA NITROGEN 57.4 mg/dL (7-18); CALCIUM 7.3 mg/dL (8.5-10.1); CREATININE 1.9 mg/dL (0.55-1.3); MAGNESIUM 1.5 mg/dL (1.8-2.4); PHOSPHOROUS 2.9 mg/dL (2.5-4.9)
[2022-08-15] MEDS ORDERED: NOREPINEPHRINE BITARTRATE 4 MG/4 ML ML IV ONE (03:44)
[2022-08-15] MEDS ORDERED: HYDROCORTISONE SOD SUCCINATE 100 MG/2 ML VIAL IVPUSH STA (03:44)
[2022-08-15] MEDS ORDERED: NOREPINEPHRINE BITARTRATE 16,000 MCG in SODIUM CHLORIDE 484 ML IV SCH (03:45)
[2022-08-15] MEDS ORDERED: VASOPRESSIN 20 UNITS/ML VIAL IV ONE (03:45)
[2022-08-15] MEDS ORDERED: VASOPRESSIN 40 UNITS/100 ML BAG IV SCH ×2 (03:45→19:02)
[2022-08-15 04:22] LABS: INR 1.06 (0.83-1.09); PROTHROMBIN TIME (PATIENT) 12.2 SEC (9.7-13.0)
[2022-08-15] MEDS ORDERED: MIDAZOLAM HCL 2 MG/2 ML SINGLE DOSE VIAL ONE ×2 (05:33→07:51)
[2022-08-15] MEDS ORDERED: ROCURONIUM BROMIDE 50 MG/5 ML SYRINGE ONE (05:33)
[2022-08-15] MEDS ORDERED: HYDROmorphone HCl 2 MG/ML VIAL ONE (05:56)
[2022-08-15] MEDS ORDERED: POTASSIUM CHLORIDE 10 MEQ in SODIUM CHLORIDE 0.45% 1,000 ML IVPB SCH (07:15)
[2022-08-15 07:24] LABS: ALBUMIN 1.8 g/dl (3.4-5.0)
[2022-08-15 07:26] LABS: BILIRUBIN,DIRECT 0.2 mg/dL (0.0-0.2)
[2022-08-15 07:38] LABS: BILIRUBIN,TOTAL 0.3 mg/dL (0.2-1)
[2022-08-15] MEDS ORDERED: PROPOFOL 1,000,000 MCG/100 ML VIAL IVPB SCH (08:30)
[2022-08-15] MEDS ORDERED: FENTANYL NS IVPB 500 MCG/100 ML BAG IVPB SCH (08:30)
[2022-08-15] MEDS ORDERED: CEFTRIAXONE 1 GM in DEXTROSE 5%-WATER - 50 ML IVPB SCH (10:00)
[2022-08-15] MEDS ORDERED: HEPARIN NA (PORCINE) 5,000 UNITS/ML 1ML VIAL SQ SCH (10:00)
[2022-08-15] MEDS ORDERED: KETOCONAZOLE 2% TOPICAL CREAM 15 GM TUBE TP SCH (10:00)
[2022-08-15] MEDS ORDERED: HYDROCORTISONE 1% TOPICAL CREAM 30 GM TUBE TP SCH (10:00)
[2022-08-15] MEDS ORDERED: FLUCONAZOLE 200 MG/D5W 100 ML IVPB SCH (10:00)
[2022-08-15] MEDS ORDERED: MUPIROCIN 2% TOPICAL OINTMENT FOR DECOLONIZATION NS SCH ×2 (10:00→22:00)
[2022-08-15] MEDS ORDERED: PANTOPRAZOLE SODIUM 40 MG VIAL IVPUSH SCH (10:00)
[2022-08-15 10:03] LABS: HEMATOCRIT 21.4 % (32.4-45.2); HEMOGLOBIN 7.2 GM/dL (10.7-15.3); MCHC 33.6 g/dl (32.0-36.0); MEAN CELL VOLUME 89.4 fl (80-96); MEAN PLT VOLUME 9.9 fl (7.5-11.1); PLATELET COUNT 68 10^3/uL (134-434); WHITE BLOOD COUNT 2.8 K/mm3 (4.0-10.0)
[2022-08-15 10:04] LABS: INR 1.03 (0.83-1.09); PROTHROMBIN TIME (PATIENT) 11.9 SEC (9.7-13.0)
[2022-08-15 10:17] LABS: CHLORIDE 108 mmol/L (98-107); SODIUM 138 mmol/L (136-145)
[2022-08-15 10:20] LABS: ALBUMIN 1.8 g/dl (3.4-5.0); ANION GAP 10 MMOL/L (8-16); CO2 21 mmol/L (21-32); GLUCOSE,RANDOM 248 mg/dL (74-106); MAGNESIUM 1.5 mg/dL (1.8-2.4)
[2022-08-15 10:23] LABS: BILIRUBIN,DIRECT 0.4 mg/dL (0.0-0.2); CREATININE 1.9 mg/dL (0.55-1.3); SGOT/AST 53 U/L (15-37); SGPT/ALT 51 U/L (13-61)
[2022-08-15 10:25] LABS: TOT PROT 3.8 g/dl (6.4-8.2)
[2022-08-15 10:26] LABS: ALK PHOS 41 U/L (45-117)
[2022-08-15 10:29] LABS: LDH 393 U/L (84-246)
[2022-08-15 10:32] LABS: ERYTHROCYTE SEDIMENTATION RATE 6 mm/hr (0-30)
[2022-08-15 10:39] LABS: CALCIUM 6.6 mg/dL (8.5-10.1)
[2022-08-15] MEDS ORDERED: MAGNESIUM 1GM/D5W 100ML - 100 ML IVPB IVPB ONE (10:42)
[2022-08-15 10:46] LABS: ANISOCYTOSIS 0; MACROCYTOSIS 0
[2022-08-15] MEDS: FLUCONAZOLE 200 MG/NS 100 ML IVPB SCH (12:15)
[2022-08-15] MEDS ORDERED: SODIUM CHLORIDE 1,000 ML IV STA (14:44)
[2022-08-15] MEDS: SODIUM CHLORIDE 1,000 ML IV SCH (15:15)
[2022-08-15] MEDS: PIPERACILLIN/TAZOB 3.375 GM 3.375 GM in DEXTROSE 5%-WATER - 50 ML IVPB SCH (18:32)
[2022-08-15] MEDS: NOREPINEPHRINE BITARTRATE 16,000 MCG in SODIUM CHLORIDE 484 ML IV SCH (19:15)
[2022-08-15] MEDS: PROPOFOL 1,000,000 MCG/100 ML VIAL IVPB SCH (19:15)
[2022-08-15] MEDS ORDERED: CHLORHEXIDINE GLUCONATE 4% CLEANSER FOR DECOLONIZATION TP SCH ×3 (22:00)
[2022-08-15] MEDS: HYDROCORTISONE 1% TOPICAL CREAM 30 GM TUBE TP SCH (22:30)
[2022-08-15] MEDS: HEPARIN NA (PORCINE) 5,000 UNITS/ML 1ML VIAL SQ SCH (22:30)
[2022-08-15] MEDS: KETOCONAZOLE 2% TOPICAL CREAM 15 GM TUBE TP SCH (22:30)
[2022-08-16] MEDS ORDERED: FENTANYL NS IVPB 500 MCG/100 ML BAG IVPB SCH (02:00)
[2022-08-16] MEDS: PIPERACILLIN/TAZOB 3.375 GM 3.375 GM in DEXTROSE 5%-WATER - 50 ML IVPB SCH ×3 (02:33→17:07)
[2022-08-16 06:13] LABS: ARTERIAL BLD GAS O2 SATURATION 97.6 % (95-98); ARTERIAL BLOOD GAS BASE EXCESS -9.5 mmol/L (-2-2); ARTERIAL BLOOD GAS PO2 104.2 mmHg (80-100); ARTERIAL BLOOD GAS pH 7.351 (7.350-7.450)
[2022-08-16 06:19] LABS: ALLENS TEST POSITIVE; VENT MODE A/C; VENT RATE 14
[2022-08-16 07:46] LABS: HEMATOCRIT 28.1 % (32.4-45.2); HEMOGLOBIN 9.8 GM/dL (10.7-15.3); MCH 30.6 pg (25.7-33.7); MCHC 34.9 g/dl (32.0-36.0); MEAN CELL VOLUME 87.8 fl (80-96); MEAN PLT VOLUME 10.4 fl (7.5-11.1); PLATELET COUNT 73 10^3/uL (134-434); RDW 13.9 % (11.6-15.6)
[2022-08-16] MEDS: ACETAMINOPHEN 1000 MG/100 ML BAG IVPB PRN ×3 (07:53→22:09)
[2022-08-16 08:05] LABS: ALBUMIN 1.8 g/dl (3.4-5.0); BLOOD UREA NITROGEN 54.4 mg/dL (7-18); MAGNESIUM 1.7 mg/dL (1.8-2.4)
[2022-08-16 08:08] LABS: PHOSPHOROUS 3.8 mg/dL (2.5-4.9)
[2022-08-16 08:09] LABS: BILIRUBIN,TOTAL 1.2 mg/dL (0.2-1); TOT PROT 4.1 g/dl (6.4-8.2)
[2022-08-16] MEDS ORDERED: MAGNESIUM SULF 50% (8.12 MEQ/2 ML-1 GM VIAL) IVPB ONE (08:45)
[2022-08-16] MEDS: methylPREDNISolone NA SUCC 40 MG/1 ML VIAL IVPUSH SCH ×2 (09:55→17:08)
[2022-08-16] MEDS: HEPARIN NA (PORCINE) 5,000 UNITS/ML 1ML VIAL SQ SCH ×2 (09:56→22:09)
[2022-08-16] MEDS: PROPOFOL 1,000,000 MCG/100 ML VIAL IVPB SCH (09:57)
[2022-08-16] MEDS: PANTOPRAZOLE SODIUM 40 MG VIAL IVPUSH SCH (09:58)
[2022-08-16 10:05] LABS: ANISOCYTOSIS 0; MACROCYTOSIS 0
[2022-08-16] MEDS: KETOCONAZOLE 2% TOPICAL CREAM 15 GM TUBE TP SCH ×2 (11:26→22:11)
[2022-08-16] MEDS: HYDROCORTISONE 1% TOPICAL CREAM 30 GM TUBE TP SCH ×2 (11:28→22:10)
[2022-08-16] MEDS: FLUCONAZOLE 200 MG/NS 100 ML IVPB SCH (13:15)
[2022-08-16] MEDS: SODIUM CHLORIDE 1,000 ML IV SCH (17:07)
[2022-08-16] MEDS: NOREPINEPHRINE BITARTRATE 16,000 MCG in SODIUM CHLORIDE 484 ML IV SCH (23:45)
[2022-08-17] MEDS: SODIUM CHLORIDE 1,000 ML IV SCH (00:41)
[2022-08-17] MEDS: PIPERACILLIN/TAZOB 3.375 GM 3.375 GM in DEXTROSE 5%-WATER - 50 ML IVPB SCH ×3 (02:28→17:53)
[2022-08-17] MEDS: methylPREDNISolone NA SUCC 40 MG/1 ML VIAL IVPUSH SCH ×3 (02:28→17:53)
[2022-08-17] MEDS: KETOCONAZOLE 2% TOPICAL CREAM 15 GM TUBE TP SCH ×2 (09:16→21:57)
[2022-08-17] MEDS: HEPARIN NA (PORCINE) 5,000 UNITS/ML 1ML VIAL SQ SCH ×2 (09:16→21:57)
[2022-08-17] MEDS: PANTOPRAZOLE SODIUM 40 MG VIAL IVPUSH SCH (09:16)
[2022-08-17] MEDS: HYDROCORTISONE 1% TOPICAL CREAM 30 GM TUBE TP SCH ×2 (09:17→21:57)
[2022-08-17] MEDS: FLUCONAZOLE 200 MG/NS 100 ML IVPB SCH (10:24)
[2022-08-17] MEDS: DEXTROSE 5%-LACTATED RINGERS 1,000 ML IV SCH (12:00)
[2022-08-17 15:45] LABS: HEMATOCRIT 22.4 % (32.4-45.2); HEMOGLOBIN 7.6 GM/dL (10.7-15.3); MCH 30.3 pg (25.7-33.7); MEAN CELL VOLUME 89.2 fl (80-96); MEAN PLT VOLUME 10.2 fl (7.5-11.1); PLATELET COUNT 63 10^3/uL (134-434); RBC 2.52 M/mm3 (3.60-5.2); RDW 14.8 % (11.6-15.6); WHITE BLOOD COUNT 2.9 K/mm3 (4.0-10.0)
[2022-08-17 16:06] LABS: ALBUMIN 1.5 g/dl (3.4-5.0); BLOOD UREA NITROGEN 51.6 mg/dL (7-18); CALCIUM 7.6 mg/dL (8.5-10.1)
[2022-08-17 16:09] LABS: CREATININE 1.9 mg/dL (0.55-1.3)
[2022-08-17 16:10] LABS: BILIRUBIN,TOTAL 0.6 mg/dL (0.2-1); TOT PROT 3.8 g/dl (6.4-8.2)
[2022-08-17 16:56] LABS: ANISOCYTOSIS 1+; HELMET CELLS 1+; MACROCYTOSIS 1+; TEAR DROP CELLS 1+
[2022-08-18] MEDS: ACETAMINOPHEN 1000 MG/100 ML BAG IVPB PRN ×3 (02:02→18:15)
[2022-08-18] MEDS: PIPERACILLIN/TAZOB 3.375 GM 3.375 GM in DEXTROSE 5%-WATER - 50 ML IVPB SCH ×3 (02:03→18:39)
[2022-08-18] MEDS: methylPREDNISolone NA SUCC 40 MG/1 ML VIAL IVPUSH SCH ×3 (02:03→18:39)
[2022-08-18 02:26] LABS: HEMOGLOBIN 7.6 GM/dL (10.7-15.3); MCH 30.9 pg (25.7-33.7); MCHC 34.7 g/dl (32.0-36.0); MEAN CELL VOLUME 89.2 fl (80-96); MEAN PLT VOLUME 10.4 fl (7.5-11.1); PLATELET COUNT 71 10^3/uL (134-434); RBC 2.47 M/mm3 (3.60-5.2); RDW 14.8 % (11.6-15.6); WHITE BLOOD COUNT 3.2 K/mm3 (4.0-10.0)
[2022-08-18] MEDS: DEXTROSE 5%-LACTATED RINGERS 1,000 ML IV SCH ×2 (03:45→17:28)
[2022-08-18 06:21] LABS: ANISOCYTOSIS 0; HELMET CELLS 0; HOWELL-JOLLY BODIES 0; MACROCYTOSIS 0; OVALOCYTE 0; ROULEAU 0; SICKELED CELLS 0; TARGET CELLS 0; TEAR DROP CELLS 0; TOXIC GRANULATION 0
[2022-08-18] MEDS: FLUCONAZOLE 200 MG/NS 100 ML IVPB SCH (09:50)
[2022-08-18] MEDS: HEPARIN NA (PORCINE) 5,000 UNITS/ML 1ML VIAL SQ SCH ×2 (09:50→23:18)
[2022-08-18] MEDS: SODIUM HYPOCHLORITE 0.25%- 473 ML BULK BOTTLE TP SCH (09:50)
[2022-08-18] MEDS: KETOCONAZOLE 2% TOPICAL CREAM 15 GM TUBE TP SCH ×2 (09:50→22:20)
[2022-08-18] MEDS: HYDROCORTISONE 1% TOPICAL CREAM 30 GM TUBE TP SCH ×2 (09:50→22:20)
[2022-08-18] MEDS: PANTOPRAZOLE SODIUM 40 MG VIAL IVPUSH SCH (09:50)
[2022-08-18] MEDS: AMINO ACIDS/PROTEIN HYDROLYS 30 ML LIQUID.PKT PO SCH (18:39)
[2022-08-18] MEDS: ACETAMINOPHEN 1000 MG/100 ML BAG IVPB SCH (21:55)
[2022-08-19] MEDS ORDERED: LORazepam 2 MG/ML SDV VIAL IVPUSH STA (00:09)
[2022-08-19] MEDS: PIPERACILLIN/TAZOB 3.375 GM 3.375 GM in DEXTROSE 5%-WATER - 50 ML IVPB SCH ×3 (01:59→17:15)
[2022-08-19] MEDS: methylPREDNISolone NA SUCC 40 MG/1 ML VIAL IVPUSH SCH ×3 (01:59→17:15)
[2022-08-19] MEDS: HYDROmorphone HCl 2 MG/ML VIAL IVPUSH PRN ×2 (02:03→16:22)
[2022-08-19] MEDS: ACETAMINOPHEN 1000 MG/100 ML BAG IVPB SCH ×3 (03:45→15:26)
[2022-08-19 06:55] LABS: HEMATOCRIT 23.3 % (32.4-45.2); HEMOGLOBIN 7.6 GM/dL (10.7-15.3); MCH 30.6 pg (25.7-33.7); MCHC 32.8 g/dl (32.0-36.0); MEAN CELL VOLUME 93.1 fl (80-96); MEAN PLT VOLUME 10.3 fl (7.5-11.1); PLATELET COUNT 79 10^3/uL (134-434); RDW 15.8 % (11.6-15.6); WHITE BLOOD COUNT 3.8 K/mm3 (4.0-10.0)
[2022-08-19 07:18] LABS: CHLORIDE 114 mmol/L (98-107); SODIUM 142 mmol/L (136-145)
[2022-08-19 07:23] LABS: ALBUMIN 1.5 g/dl (3.4-5.0); ANION GAP 9 MMOL/L (8-16); BLOOD UREA NITROGEN 57.8 mg/dL (7-18); CALCIUM 7.6 mg/dL (8.5-10.1); CO2 19 mmol/L (21-32); MAGNESIUM 1.8 mg/dL (1.8-2.4)
[2022-08-19 07:27] LABS: CREATININE 2.1 mg/dL (0.55-1.3); PHOSPHOROUS 4.9 mg/dL (2.5-4.9); SGOT/AST 12 U/L (15-37); SGPT/ALT 26 U/L (13-61)
[2022-08-19 07:28] LABS: BILIRUBIN,TOTAL 0.6 mg/dL (0.2-1); TOT PROT 3.8 g/dl (6.4-8.2)
[2022-08-19 07:30] LABS: ALK PHOS 46 U/L (45-117)
[2022-08-19 07:43] LABS: GLUCOSE,RANDOM 511 mg/dL (74-106)
[2022-08-19] MEDS: KETOCONAZOLE 2% TOPICAL CREAM 15 GM TUBE TP SCH ×2 (09:21→21:29)
[2022-08-19] MEDS: HEPARIN NA (PORCINE) 5,000 UNITS/ML 1ML VIAL SQ SCH ×2 (09:21→21:28)
[2022-08-19] MEDS: HYDROCORTISONE 1% TOPICAL CREAM 30 GM TUBE TP SCH ×2 (09:21→21:30)
[2022-08-19] MEDS: SODIUM HYPOCHLORITE 0.25%- 473 ML BULK BOTTLE TP SCH (09:21)
[2022-08-19] MEDS: PANTOPRAZOLE SODIUM 40 MG VIAL IVPUSH SCH (09:21)
[2022-08-19] MEDS: AMINO ACIDS/PROTEIN HYDROLYS 30 ML LIQUID.PKT PO SCH ×3 (09:30→17:16)
[2022-08-19] MEDS: FLUCONAZOLE 200 MG/NS 100 ML IVPB SCH (09:31)
[2022-08-19 10:09] LABS: ANISOCYTOSIS 0; HELMET CELLS 0; HOWELL-JOLLY BODIES 0; MACROCYTOSIS 0; OVALOCYTE 0; ROULEAU 0; SICKELED CELLS 0; TARGET CELLS 0; TEAR DROP CELLS 0; TOXIC GRANULATION 0
[2022-08-19] MEDS: INSULIN SLIDING SCALE (NOVOLOG) 1 VIAL SQ SCH ×3 (11:52→21:34)
[2022-08-19] MEDS ORDERED: METOPROLOL TARTRATE 5 MG/5 ML VIAL IVPUSH ONE (16:48)
[2022-08-19] MEDS ORDERED: FUROSEMIDE 40 MG/4 ML INJECTABLE VIAL IVPUSH ONE (16:49)
[2022-08-19] MEDS ORDERED: VANCOMYCIN 1 GM/200 ML PREMIX BAG IVPB SCH ×2 (17:00)
[2022-08-19] MEDS: VANCOMYCIN/WATER FOR INJ (PEG) 1,000 MG/200 ML BAG IVPB SCH ×2 (19:33→19:35)
[2022-08-20] MEDS: PIPERACILLIN/TAZOB 3.375 GM 3.375 GM in DEXTROSE 5%-WATER - 50 ML IVPB SCH ×3 (01:24→17:18)
[2022-08-20] MEDS: methylPREDNISolone NA SUCC 40 MG/1 ML VIAL IVPUSH SCH ×3 (01:24→17:18)
[2022-08-20] MEDS ORDERED: METOPROLOL TARTRATE 5 MG/5 ML VIAL IVPUSH ONE (01:45)
[2022-08-20] MEDS: ACETAMINOPHEN 1000 MG/100 ML BAG IVPB PRN ×2 (04:02→09:54)
[2022-08-20] MEDS: INSULIN SLIDING SCALE (NOVOLOG) 1 VIAL SQ SCH ×4 (06:23→22:16)
[2022-08-20 07:57] LABS: HEMATOCRIT 29.7 % (32.4-45.2); MCHC 33.6 g/dl (32.0-36.0); MEAN CELL VOLUME 92.1 fl (80-96); MEAN PLT VOLUME 10.7 fl (7.5-11.1); PLATELET COUNT 110 10^3/uL (134-434); RBC 3.23 M/mm3 (3.60-5.2); RDW 15.8 % (11.6-15.6)
[2022-08-20 07:58] LABS: BLOOD UREA NITROGEN 73.5 mg/dL (7-18); CALCIUM 8.5 mg/dL (8.5-10.1)
[2022-08-20 07:59] LABS: ALBUMIN 1.7 g/dl (3.4-5.0); MAGNESIUM 2.1 mg/dL (1.8-2.4)
[2022-08-20 08:01] LABS: CREATININE 2.5 mg/dL (0.55-1.3)
[2022-08-20 08:02] LABS: PHOSPHOROUS 6.3 mg/dL (2.5-4.9)
[2022-08-20 08:03] LABS: BILIRUBIN,TOTAL 0.7 mg/dL (0.2-1); TOT PROT 4.4 g/dl (6.4-8.2)
[2022-08-20] MEDS: AMINO ACIDS/PROTEIN HYDROLYS 30 ML LIQUID.PKT PO SCH ×3 (09:37→17:17)
[2022-08-20] MEDS: HYDROCORTISONE 1% TOPICAL CREAM 30 GM TUBE TP SCH ×2 (09:53→22:09)
[2022-08-20] MEDS: KETOCONAZOLE 2% TOPICAL CREAM 15 GM TUBE TP SCH ×2 (09:53→22:09)
[2022-08-20] MEDS: PANTOPRAZOLE SODIUM 40 MG VIAL IVPUSH SCH (09:53)
[2022-08-20] MEDS: SODIUM HYPOCHLORITE 0.25%- 473 ML BULK BOTTLE TP SCH (09:54)
[2022-08-20] MEDS: HEPARIN NA (PORCINE) 5,000 UNITS/ML 1ML VIAL SQ SCH ×2 (09:54→22:11)
[2022-08-20] MEDS: HYDROmorphone HCl 2 MG/ML VIAL IVPUSH PRN ×2 (10:22→16:08)
[2022-08-20 10:34] LABS: ANISOCYTOSIS 1+; MACROCYTOSIS 1+
[2022-08-20] MEDS: FLUCONAZOLE 200 MG/NS 100 ML IVPB SCH (10:45)
[2022-08-20] MEDS: DEXTROSE 5%-LACTATED RINGERS 1,000 ML IV SCH (13:30)
[2022-08-20] MEDS ORDERED: metoPROLOL SUCCINATE 25 MG TAB.SR.24H (FP) PO SCH (17:15)
[2022-08-20] MEDS: VANCOMYCIN/WATER FOR INJ (PEG) 1,000 MG/200 ML BAG IVPB SCH (18:24)
[2022-08-20] MEDS ORDERED: RAPID SEQUENCE INTUBATION KIT NR ONE (20:26)
[2022-08-20] MEDS ORDERED: MIDAZOLAM HCL 2 MG/2 ML SINGLE DOSE VIAL IVPUSH STA (20:27)
[2022-08-20] MEDS ORDERED: ROCURONIUM BROMIDE 50 MG/5 ML VIAL IV STA (20:28)
[2022-08-20] MEDS ORDERED: MIDAZOLAM HCL 2 MG/2 ML SINGLE DOSE VIAL ONE (20:33)
[2022-08-20] MEDS ORDERED: PROPOFOL 1,000,000 MCG/100 ML VIAL ONE (20:51)
[2022-08-20] MEDS ORDERED: FENTANYL NS IVPB 500 MCG/100 ML BAG IVPB ONE (20:51)
[2022-08-20] MEDS: PROPOFOL 1,000,000 MCG/100 ML VIAL IVPB SCH (20:57)
[2022-08-20] MEDS: FENTANYL NS IVPB 500 MCG/100 ML BAG IVPB SCH (20:58)
[2022-08-20] MEDS: metoPROLOL SUCCINATE 25 MG TAB.SR.24H (FP) PO SCH (22:11)
[2022-08-20 23:32] LABS: ALLENS TEST POSITIVE; ARTERIAL BLD GAS O2 SATURATION 94.2 % (95-98); ARTERIAL BLOOD GAS BASE EXCESS -12.5 mmol/L (-2-2); ARTERIAL BLOOD GAS PO2 80.4 mmHg (80-100); ARTERIAL BLOOD GAS pH 7.245 (7.350-7.450); VENT MODE AC
[2022-08-20 23:33] LABS: VENT RATE 26
[2022-08-21] MEDS: methylPREDNISolone NA SUCC 40 MG/1 ML VIAL IVPUSH SCH ×3 (01:17→17:24)
[2022-08-21] MEDS: PIPERACILLIN/TAZOB 3.375 GM 3.375 GM in DEXTROSE 5%-WATER - 50 ML IVPB SCH ×4 (01:18→17:20)
[2022-08-21] MEDS: ACETAMINOPHEN 1000 MG/100 ML BAG IVPB PRN (01:19)
[2022-08-21] MEDS: metoPROLOL SUCCINATE 25 MG TAB.SR.24H (FP) PO SCH ×3 (06:10→21:37)
[2022-08-21] MEDS: INSULIN SLIDING SCALE (NOVOLOG) 1 VIAL SQ SCH ×4 (06:33→21:35)
[2022-08-21] MEDS: AMINO ACIDS/PROTEIN HYDROLYS 30 ML LIQUID.PKT PO SCH ×3 (07:19→17:09)
[2022-08-21 07:20] LABS: HEMATOCRIT 27.9 % (32.4-45.2); HEMOGLOBIN 9.4 GM/dL (10.7-15.3); MCH 31.1 pg (25.7-33.7); MCHC 33.5 g/dl (32.0-36.0); MEAN CELL VOLUME 92.7 fl (80-96); MEAN PLT VOLUME 11.2 fl (7.5-11.1); PLATELET COUNT 152 10^3/uL (134-434); RBC 3.01 M/mm3 (3.60-5.2); RDW 15.9 % (11.6-15.6)
[2022-08-21 07:39] LABS: BLOOD UREA NITROGEN 89.7 mg/dL (7-18); CALCIUM 7.5 mg/dL (8.5-10.1); MAGNESIUM 2.1 mg/dL (1.8-2.4)
[2022-08-21 07:42] LABS: CREATININE 2.9 mg/dL (0.55-1.3); PHOSPHOROUS 7.7 mg/dL (2.5-4.9)
[2022-08-21 07:44] LABS: BILIRUBIN,TOTAL 0.7 mg/dL (0.2-1); TOT PROT 3.8 g/dl (6.4-8.2)
[2022-08-21 07:46] LABS: ALBUMIN 1.2 g/dl (3.4-5.0)
[2022-08-21] MEDS ORDERED: SODIUM CHLORIDE 250 ML IV STA (08:46)
[2022-08-21 08:58] LABS: ANISOCYTOSIS 0; HELMET CELLS 0; HOWELL-JOLLY BODIES 0; MACROCYTOSIS 0; OVALOCYTE 0; ROULEAU 0; SICKELED CELLS 0; TARGET CELLS 0; TEAR DROP CELLS 0; TOXIC GRANULATION 0
[2022-08-21 09:33] LABS: CORRECTED WBC 7.06 K/mm3; WHITE BLOOD COUNT 8.9 K/mm3 (4.0-10.0)
[2022-08-21] MEDS: HEPARIN NA (PORCINE) 5,000 UNITS/ML 1ML VIAL SQ SCH ×3 (10:19→21:36)
[2022-08-21] MEDS: PANTOPRAZOLE SODIUM 40 MG VIAL IVPUSH SCH ×2 (10:27→21:35)
[2022-08-21 10:29] LABS: ARTERIAL BLD GAS O2 SATURATION 97.4 % (95-98); ARTERIAL BLOOD GAS BASE EXCESS -14.5 mmol/L (-2-2); ARTERIAL BLOOD GAS PO2 112.5 mmHg (80-100); ARTERIAL BLOOD GAS pH 7.223 (7.350-7.450)
[2022-08-21] MEDS: HYDROCORTISONE 1% TOPICAL CREAM 30 GM TUBE TP SCH ×2 (10:31→21:36)
[2022-08-21] MEDS: SODIUM HYPOCHLORITE 0.25%- 473 ML BULK BOTTLE TP SCH (10:31)
[2022-08-21] MEDS: KETOCONAZOLE 2% TOPICAL CREAM 15 GM TUBE TP SCH ×2 (10:31→21:36)
[2022-08-21 10:37] LABS: ALLENS TEST POSITIVE
[2022-08-21 10:38] LABS: VENT MODE AC; VENT RATE 26
[2022-08-21] MEDS: NOREPINEPHRINE BITARTRATE 16,000 MCG in SODIUM CHLORIDE 484 ML IV SCH (10:44)
[2022-08-21 11:09] LABS: LACTIC ACID 3.7 mmol/L (0.4-2.0)
[2022-08-21] MEDS: FLUCONAZOLE 200 MG/NS 100 ML IVPB SCH ×2 (11:28→17:19)
[2022-08-21] MEDS ORDERED: SODIUM CHLORIDE 1,000 ML IV STA (12:05)
[2022-08-21 13:05] LABS: INR 1.07 (0.83-1.09); PROTHROMBIN TIME (PATIENT) 12.3 SEC (9.7-13.0)
[2022-08-21 13:08] LABS: ACTIVATED PTT 33.2 SECONDS (25.2-36.5)
[2022-08-21] MEDS ORDERED: HYDROmorphone HCl 2 MG/ML VIAL ONE (14:36)
[2022-08-21] MEDS: SODIUM BICARBONATE 8.4% 50 MEQ/50 ML DISP.SYRIN IVPUSH SCH ×2 (16:30→17:30)
[2022-08-21] MEDS: DEXTROSE 5%-LACTATED RINGERS 1,000 ML IV SCH (17:08)
[2022-08-21] MEDS: TUBE FEED DECLOGGING SOLUTION 12,000 UNITS NR SCH ×2 (17:26→18:11)
[2022-08-21 19:22] LABS: LACTIC ACID 2.4 mmol/L (0.4-2.0)
[2022-08-21] MEDS: VANCOMYCIN/WATER FOR INJ (PEG) 1,000 MG/200 ML BAG IVPB SCH (19:58)
[2022-08-21] MEDS: PROPOFOL 1,000,000 MCG/100 ML VIAL IVPB SCH (21:22)
[2022-08-21] MEDS: FENTANYL NS IVPB 500 MCG/100 ML BAG IVPB SCH (21:28)
[2022-08-22] MEDS: methylPREDNISolone NA SUCC 40 MG/1 ML VIAL IVPUSH SCH ×3 (02:00→17:43)
[2022-08-22] MEDS: PIPERACILLIN/TAZOB 3.375 GM 3.375 GM in DEXTROSE 5%-WATER - 50 ML IVPB SCH ×3 (02:00→17:43)
[2022-08-22] MEDS: metoPROLOL SUCCINATE 25 MG TAB.SR.24H (FP) PO SCH ×3 (05:53→21:36)
[2022-08-22] MEDS: DEXTROSE 5%-LACTATED RINGERS 1,000 ML IV SCH ×2 (05:54→15:42)
[2022-08-22] MEDS: FENTANYL NS IVPB 500 MCG/100 ML BAG IVPB SCH ×3 (05:55→21:34)
[2022-08-22] MEDS: INSULIN SLIDING SCALE (NOVOLOG) 1 VIAL SQ SCH ×4 (07:32→21:10)
[2022-08-22 08:15] LABS: HEMATOCRIT 25.4 % (32.4-45.2); HEMOGLOBIN 8.7 GM/dL (10.7-15.3); MCH 30.8 pg (25.7-33.7); MCHC 34.2 g/dl (32.0-36.0); MEAN CELL VOLUME 89.9 fl (80-96); MEAN PLT VOLUME 9.8 fl (7.5-11.1); PLATELET COUNT 88 10^3/uL (134-434); RBC 2.83 M/mm3 (3.60-5.2); RDW 19.1 % (11.6-15.6); WHITE BLOOD COUNT 8.2 K/mm3 (4.0-10.0)
[2022-08-22 08:20] LABS: CALCIUM 7.5 mg/dL (8.5-10.1)
[2022-08-22 08:21] LABS: ALBUMIN 1.4 g/dl (3.4-5.0); MAGNESIUM 2.1 mg/dL (1.8-2.4)
[2022-08-22 08:24] LABS: CREATININE 2.9 mg/dL (0.55-1.3)
[2022-08-22 08:26] LABS: BILIRUBIN,TOTAL 0.7 mg/dL (0.2-1); TOT PROT 3.8 g/dl (6.4-8.2)
[2022-08-22 08:40] LABS: ARTERIAL BLD GAS O2 SATURATION 93.6 % (95-98); ARTERIAL BLOOD GAS BASE EXCESS -8.1 mmol/L (-2-2); ARTERIAL BLOOD GAS PO2 71.1 mmHg (80-100); ARTERIAL BLOOD GAS pH 7.335 (7.350-7.450)
[2022-08-22 08:43] LABS: VENT MODE AC; VENT RATE 12
[2022-08-22] MEDS: AMINO ACIDS/PROTEIN HYDROLYS 30 ML LIQUID.PKT PO SCH ×3 (08:55→17:06)
[2022-08-22 09:20] LABS: ANISOCYTOSIS 0; MACROCYTOSIS 0
[2022-08-22] MEDS: SODIUM HYPOCHLORITE 0.25%- 473 ML BULK BOTTLE TP SCH (09:25)
[2022-08-22] MEDS: KETOCONAZOLE 2% TOPICAL CREAM 15 GM TUBE TP SCH ×2 (09:25→21:35)
[2022-08-22] MEDS: HYDROCORTISONE 1% TOPICAL CREAM 30 GM TUBE TP SCH ×2 (09:25→21:35)
[2022-08-22] MEDS: PANTOPRAZOLE SODIUM 40 MG VIAL IVPUSH SCH ×2 (09:27→21:35)
[2022-08-22] MEDS: TUBE FEED DECLOGGING SOLUTION 12,000 UNITS NR SCH ×3 (09:34→17:44)
[2022-08-22] MEDS ORDERED: FUROSEMIDE 40 MG/4 ML INJECTABLE VIAL IVPUSH ONE (09:46)
[2022-08-22] MEDS ORDERED: AMINO ACIDS IVPB SCH (10:00)
[2022-08-22] MEDS ORDERED: MULTIVIT IVPB SCH (10:00)
[2022-08-22] MEDS ORDERED: THIAMINE HCL IVPB SCH (10:00)
[2022-08-22] MEDS ORDERED: [UNRECOGNIZED DRUG - OTHER] IVPB SCH (10:00)
[2022-08-22] MEDS: DEXMEDETOMIDINE PREMIX 400 MCG/100 ML BAG IVPB SCH (10:20)
[2022-08-22] MEDS: FLUCONAZOLE 200 MG/NS 100 ML IVPB SCH (11:59)
[2022-08-22] MEDS: HEPARIN NA (PORCINE) 5,000 UNITS/ML 1ML VIAL SQ SCH ×2 (14:42→21:35)
[2022-08-22 15:36] VITALS: BMI 36.8
[2022-08-22] MEDS: NOREPINEPHRINE BITARTRATE 16,000 MCG in SODIUM CHLORIDE 484 ML IV SCH (17:44)
[2022-08-22] MEDS: VANCOMYCIN/WATER FOR INJ (PEG) 1,000 MG/200 ML BAG IVPB SCH (18:55)
[2022-08-22] MEDS: PROPOFOL 1,000,000 MCG/100 ML VIAL IVPB SCH (21:33)
[2022-08-23] MEDS ORDERED: ACETAMINOPHEN 1000 MG/100 ML BAG IVPB ONE (00:19)
[2022-08-23] MEDS: PIPERACILLIN/TAZOB 3.375 GM 3.375 GM in DEXTROSE 5%-WATER - 50 ML IVPB SCH ×3 (02:00→17:11)
[2022-08-23] MEDS: HEPARIN NA (PORCINE) 5,000 UNITS/ML 1ML VIAL SQ SCH ×3 (05:57→21:07)
[2022-08-23] MEDS: metoPROLOL SUCCINATE 25 MG TAB.SR.24H (FP) PO SCH ×4 (05:57→21:10)
[2022-08-23] MEDS: INSULIN SLIDING SCALE (NOVOLOG) 1 VIAL SQ SCH ×4 (06:09→21:09)
[2022-08-23] MEDS: METOPROLOL TARTRATE 5 MG/5 ML VIAL IVPUSH PRN (06:43)
[2022-08-23 06:58] LABS: ALBUMIN 1.2 g/dl (3.4-5.0); CALCIUM 7.3 mg/dL (8.5-10.1); MAGNESIUM 2.1 mg/dL (1.8-2.4)
[2022-08-23 07:01] LABS: CREATININE 2.9 mg/dL (0.55-1.3); PHOSPHOROUS 5.7 mg/dL (2.5-4.9)
[2022-08-23 07:03] LABS: BILIRUBIN,TOTAL 0.6 mg/dL (0.2-1); TOT PROT 3.7 g/dl (6.4-8.2)
[2022-08-23 07:09] LABS: HEMATOCRIT 23.6 % (32.4-45.2); HEMOGLOBIN 7.9 GM/dL (10.7-15.3); MCH 30.4 pg (25.7-33.7); MCHC 33.6 g/dl (32.0-36.0); MEAN CELL VOLUME 90.4 fl (80-96); PLATELET COUNT 77 10^3/uL (134-434); RBC 2.61 M/mm3 (3.60-5.2); RDW 19.1 % (11.6-15.6)
[2022-08-23] MEDS: AMINO ACIDS/PROTEIN HYDROLYS 30 ML LIQUID.PKT PO SCH ×3 (07:58→17:10)
[2022-08-23] MEDS ORDERED: methylPREDNISolone NA SUCC 40 MG/1 ML VIAL IVPUSH ONE (08:00)
[2022-08-23 08:52] LABS: ANISOCYTOSIS 1+; MACROCYTOSIS 1+
[2022-08-23] MEDS: TUBE FEED DECLOGGING SOLUTION 12,000 UNITS NR SCH ×3 (09:06→17:10)
[2022-08-23] MEDS: PANTOPRAZOLE SODIUM 40 MG VIAL IVPUSH SCH ×2 (09:26→21:07)
[2022-08-23] MEDS: methylPREDNISolone NA SUCC 40 MG/1 ML VIAL IVPUSH SCH ×2 (09:26→21:07)
[2022-08-23] MEDS: KETOCONAZOLE 2% TOPICAL CREAM 15 GM TUBE TP SCH ×2 (09:28→21:07)
[2022-08-23] MEDS: SODIUM HYPOCHLORITE 0.25%- 473 ML BULK BOTTLE TP SCH (09:28)
[2022-08-23] MEDS: HYDROCORTISONE 1% TOPICAL CREAM 30 GM TUBE TP SCH ×2 (09:28→21:09)
[2022-08-23] MEDS: FLUCONAZOLE 200 MG/NS 100 ML IVPB SCH (11:06)
[2022-08-23] MEDS ORDERED: FUROSEMIDE 40 MG/4 ML INJECTABLE VIAL IVPUSH ONE (11:15)
[2022-08-23] MEDS: MULTIVIT INJ. ADULT COMBO WITH VIT K 1 COMBO 10 ML VIAL IV SCH (15:35)
[2022-08-23] MEDS: THIAMINE HCL IVPB SCH (15:36)
[2022-08-23] MEDS: [UNRECOGNIZED DRUG - OTHER] IVPB SCH (15:36)
[2022-08-23] MEDS: AMINO ACIDS IVPB SCH (15:36)
[2022-08-23] MEDS: ACETAMINOPHEN 1000 MG/100 ML BAG IVPB PRN (16:54)
[2022-08-23] MEDS: DEXMEDETOMIDINE PREMIX 400 MCG/100 ML BAG IVPB SCH (17:44)
[2022-08-23] MEDS: NOREPINEPHRINE BITARTRATE 16,000 MCG in SODIUM CHLORIDE 484 ML IV SCH (17:45)
[2022-08-23] MEDS: FENTANYL NS IVPB 500 MCG/100 ML BAG IVPB SCH (21:08)
[2022-08-23] MEDS: PROPOFOL 1,000,000 MCG/100 ML VIAL IVPB SCH (21:08)
[2022-08-24] MEDS: PIPERACILLIN/TAZOB 3.375 GM 3.375 GM in DEXTROSE 5%-WATER - 50 ML IVPB SCH ×3 (02:15→17:20)
[2022-08-24] MEDS: THIAMINE HCL IVPB SCH ×2 (04:14→09:14)
[2022-08-24] MEDS: [UNRECOGNIZED DRUG - OTHER] IVPB SCH ×2 (04:14→09:14)
[2022-08-24] MEDS: AMINO ACIDS IVPB SCH ×2 (04:14→09:14)
[2022-08-24] MEDS: HEPARIN NA (PORCINE) 5,000 UNITS/ML 1ML VIAL SQ SCH ×3 (05:27→21:39)
[2022-08-24] MEDS: metoPROLOL SUCCINATE 25 MG TAB.SR.24H (FP) PO SCH ×3 (05:28→21:41)
[2022-08-24] MEDS: INSULIN SLIDING SCALE (NOVOLOG) 1 VIAL SQ SCH ×4 (06:51→21:40)
[2022-08-24] MEDS: AMINO ACIDS/PROTEIN HYDROLYS 30 ML LIQUID.PKT PO SCH ×3 (09:10→17:20)
[2022-08-24] MEDS: methylPREDNISolone NA SUCC 40 MG/1 ML VIAL IVPUSH SCH ×2 (09:10→09:41)
[2022-08-24] MEDS: PANTOPRAZOLE SODIUM 40 MG VIAL IVPUSH SCH ×2 (09:10→21:41)
[2022-08-24] MEDS: SODIUM HYPOCHLORITE 0.25%- 473 ML BULK BOTTLE TP SCH (09:11)
[2022-08-24] MEDS: HYDROCORTISONE 1% TOPICAL CREAM 30 GM TUBE TP SCH ×2 (09:11→21:40)
[2022-08-24] MEDS: KETOCONAZOLE 2% TOPICAL CREAM 15 GM TUBE TP SCH ×2 (09:11→21:40)
[2022-08-24] MEDS: MULTIVIT INJ. ADULT COMBO WITH VIT K 1 COMBO 10 ML VIAL IV SCH (09:15)
[2022-08-24 10:00] LABS: HEMATOCRIT 24.2 % (32.4-45.2); HEMOGLOBIN 8.3 GM/dL (10.7-15.3); MCH 30.6 pg (25.7-33.7); MCHC 34.2 g/dl (32.0-36.0); MEAN CELL VOLUME 89.6 fl (80-96); MEAN PLT VOLUME 9.8 fl (7.5-11.1); PLATELET COUNT 39 10^3/uL (134-434); RDW 19.8 % (11.6-15.6); WHITE BLOOD COUNT 11.4 K/mm3 (4.0-10.0)
[2022-08-24 10:14] LABS: CHLORIDE 110 mmol/L (98-107); SODIUM 142 mmol/L (136-145)
[2022-08-24 10:16] LABS: CALCIUM 7.4 mg/dL (8.5-10.1)
[2022-08-24 10:17] LABS: ALBUMIN 1.3 g/dl (3.4-5.0); ANION GAP 15 MMOL/L (8-16); CO2 17 mmol/L (21-32); GLUCOSE,RANDOM 261 mg/dL (74-106)
[2022-08-24 10:20] LABS: CREATININE 2.8 mg/dL (0.55-1.3); SGOT/AST 25 U/L (15-37); SGPT/ALT 61 U/L (13-61)
[2022-08-24 10:22] LABS: BILIRUBIN,TOTAL 0.5 mg/dL (0.2-1); TOT PROT 4.1 g/dl (6.4-8.2)
[2022-08-24 10:23] LABS: ALK PHOS 82 U/L (45-117)
[2022-08-24 10:28] LABS: BLOOD UREA NITROGEN 106.7 mg/dL (7-18)
[2022-08-24] MEDS: TUBE FEED DECLOGGING SOLUTION 12,000 UNITS NR SCH ×3 (10:41→17:20)
[2022-08-24] MEDS ORDERED: ACETYLCYSTEINE 20% 200MG/ML 4 ML VIAL *FOR ORAL / INH USE ONLY NEB ONE (11:05)
[2022-08-24] MEDS ORDERED: ALBUTEROL SO4 0.083% IH SOL 2.5 MG/3 ML VIAL.NEB. NEB ONE (11:05)
[2022-08-24] MEDS: FLUCONAZOLE 200 MG/NS 100 ML IVPB SCH (11:21)
[2022-08-24 11:27] LABS: ANISOCYTOSIS 1+; MACROCYTOSIS 0; PLATELET ESTIMATE DECREASED
[2022-08-24] MEDS: DEXMEDETOMIDINE PREMIX 400 MCG/100 ML BAG IVPB SCH (12:42)
[2022-08-24] MEDS: NOREPINEPHRINE BITARTRATE 16,000 MCG in SODIUM CHLORIDE 484 ML IV SCH (12:47)
[2022-08-24] MEDS ORDERED: [UNRECOGNIZED DRUG - OTHER] IVPB SCH (13:45)
[2022-08-24] MEDS ORDERED: AMINO ACIDS IVPB SCH (13:45)
[2022-08-24] MEDS ORDERED: THIAMINE HCL IVPB SCH (13:45)
[2022-08-24] MEDS ORDERED: LIDOCAINE 5% TOPICAL PATCH TP ONE (14:02)
[2022-08-24] MEDS: ACETAMINOPHEN 1000 MG/100 ML BAG IVPB PRN (14:28)
[2022-08-24 15:07] LABS: MAGNESIUM 1.8 mg/dL (1.8-2.4)
[2022-08-24 15:10] LABS: PHOSPHOROUS 5.3 mg/dL (2.5-4.9)
[2022-08-24] MEDS: FENTANYL NS IVPB 500 MCG/100 ML BAG IVPB SCH (21:00)
[2022-08-24] MEDS: PROPOFOL 1,000,000 MCG/100 ML VIAL IVPB SCH (21:00)
[2022-08-24] MEDS ORDERED: LIDOCAINE PATCH REMOVAL MC ONE (22:00)
[2022-08-25] MEDS: PIPERACILLIN/TAZOB 3.375 GM 3.375 GM in DEXTROSE 5%-WATER - 50 ML IVPB SCH ×3 (02:17→18:25)
[2022-08-25] MEDS: HEPARIN NA (PORCINE) 5,000 UNITS/ML 1ML VIAL SQ SCH ×3 (05:55→21:23)
[2022-08-25] MEDS: metoPROLOL SUCCINATE 25 MG TAB.SR.24H (FP) PO SCH ×3 (05:55→21:52)
[2022-08-25] MEDS: INSULIN SLIDING SCALE (NOVOLOG) 1 VIAL SQ SCH ×4 (06:59→21:24)
[2022-08-25 07:37] LABS: HEMATOCRIT 28.9 % (32.4-45.2); HEMOGLOBIN 9.6 GM/dL (10.7-15.3); MCH 30.6 pg (25.7-33.7); MCHC 33.3 g/dl (32.0-36.0); MEAN CELL VOLUME 91.9 fl (80-96); MEAN PLT VOLUME 10.7 fl (7.5-11.1); PLATELET COUNT 55 10^3/uL (134-434); RBC 3.15 M/mm3 (3.60-5.2); RDW 19.6 % (11.6-15.6); WHITE BLOOD COUNT 17.4 K/mm3 (4.0-10.0)
[2022-08-25 07:49] LABS: CHLORIDE 106 mmol/L (98-107); SODIUM 138 mmol/L (136-145)
[2022-08-25 07:51] LABS: ALBUMIN 1.4 g/dl (3.4-5.0); ANION GAP 13 MMOL/L (8-16); CALCIUM 7.6 mg/dL (8.5-10.1); CO2 19 mmol/L (21-32); GLUCOSE,RANDOM 274 mg/dL (74-106)
[2022-08-25 07:54] LABS: CREATININE 2.6 mg/dL (0.55-1.3); SGOT/AST 35 U/L (15-37)
[2022-08-25 07:55] LABS: PHOSPHOROUS 4.1 mg/dL (2.5-4.9); SGPT/ALT 57 U/L (13-61)
[2022-08-25 07:56] LABS: BILIRUBIN,TOTAL 0.7 mg/dL (0.2-1); TOT PROT 4.3 g/dl (6.4-8.2)
[2022-08-25] MEDS: FENTANYL NS IVPB 500 MCG/100 ML BAG IVPB SCH (08:02)
[2022-08-25 08:15] LABS: ALK PHOS 143 U/L (45-117)
[2022-08-25] MEDS ORDERED: ACETAMINOPHEN 1000 MG/100 ML BAG IVPB STA (08:26)
[2022-08-25] MEDS: MULTIVIT INJ. ADULT COMBO WITH VIT K 1 COMBO 10 ML VIAL IV SCH (09:01)
[2022-08-25] MEDS: NOREPINEPHRINE BITARTRATE 16,000 MCG in SODIUM CHLORIDE 484 ML IV SCH (09:02)
[2022-08-25] MEDS: AMINO ACIDS/PROTEIN HYDROLYS 30 ML LIQUID.PKT PO SCH ×3 (09:06→18:25)
[2022-08-25] MEDS: SODIUM HYPOCHLORITE 0.25%- 473 ML BULK BOTTLE TP SCH (09:10)
[2022-08-25] MEDS: DEXMEDETOMIDINE PREMIX 400 MCG/100 ML BAG IVPB SCH (09:10)
[2022-08-25] MEDS: FLUCONAZOLE 200 MG/NS 100 ML IVPB SCH (09:10)
[2022-08-25] MEDS: KETOCONAZOLE 2% TOPICAL CREAM 15 GM TUBE TP SCH ×2 (09:10→21:17)
[2022-08-25] MEDS: HYDROCORTISONE 1% TOPICAL CREAM 30 GM TUBE TP SCH ×2 (09:10→21:17)
[2022-08-25] MEDS: methylPREDNISolone NA SUCC 40 MG/1 ML VIAL IVPUSH SCH (09:11)
[2022-08-25] MEDS: TUBE FEED DECLOGGING SOLUTION 12,000 UNITS NR SCH ×3 (09:11→18:25)
[2022-08-25] MEDS: PANTOPRAZOLE SODIUM 40 MG VIAL IVPUSH SCH ×2 (09:11→21:24)
[2022-08-25] MEDS: METOPROLOL TARTRATE 5 MG/5 ML VIAL IVPUSH PRN ×3 (09:20→23:55)
[2022-08-25 09:37] LABS: ANISOCYTOSIS 1+; MACROCYTOSIS 1+; PLATELET ESTIMATE DECREASED
[2022-08-25] MEDS: DAPTOMYCIN 650 MG in SODIUM CHLORIDE 50 ML IVPB SCH (21:14)
[2022-08-26] MEDS: PIPERACILLIN/TAZOB 3.375 GM 3.375 GM in DEXTROSE 5%-WATER - 50 ML IVPB SCH ×3 (01:36→18:31)
[2022-08-26] MEDS: HEPARIN NA (PORCINE) 5,000 UNITS/ML 1ML VIAL SQ SCH ×3 (06:36→21:38)
[2022-08-26] MEDS: METOPROLOL TARTRATE 5 MG/5 ML VIAL IVPUSH PRN ×2 (06:36→13:41)
[2022-08-26] MEDS: metoPROLOL SUCCINATE 25 MG TAB.SR.24H (FP) PO SCH ×3 (06:37→22:00)
[2022-08-26] MEDS ORDERED: ACETAMINOPHEN INJECTION 100 ML IVPB ONE ×2 (06:55→16:11)
[2022-08-26] MEDS: INSULIN SLIDING SCALE (NOVOLOG) 1 VIAL SQ SCH ×4 (07:18→22:45)
[2022-08-26] MEDS ORDERED: ACETAMINOPHEN 1000 MG/100 ML BAG IVPB ONE (07:19)
[2022-08-26 07:38] LABS: HEMATOCRIT 29.7 % (32.4-45.2); HEMOGLOBIN 9.7 GM/dL (10.7-15.3); MCH 29.9 pg (25.7-33.7); MCHC 32.6 g/dl (32.0-36.0); MEAN CELL VOLUME 91.8 fl (80-96); MEAN PLT VOLUME 11.9 fl (7.5-11.1); PLATELET COUNT 43 10^3/uL (134-434); RBC 3.24 M/mm3 (3.60-5.2); RDW 19.2 % (11.6-15.6); WHITE BLOOD COUNT 19.5 K/mm3 (4.0-10.0)
[2022-08-26 07:57] LABS: CHLORIDE 108 mmol/L (98-107); SODIUM 140 mmol/L (136-145)
[2022-08-26 08:03] LABS: GLUCOSE,RANDOM 295 mg/dL (74-106)
[2022-08-26 08:04] LABS: ANION GAP 11 MMOL/L (8-16); CO2 21 mmol/L (21-32)
[2022-08-26 08:05] LABS: ALBUMIN 1.4 g/dl (3.4-5.0); PHOSPHOROUS 3.7 mg/dL (2.5-4.9); SGOT/AST 41 U/L (15-37)
[2022-08-26 08:06] LABS: CREATININE 2.5 mg/dL (0.55-1.3); SGPT/ALT 61 U/L (13-61)
[2022-08-26 08:07] LABS: BILIRUBIN,TOTAL 0.8 mg/dL (0.2-1); TOT PROT 4.3 g/dl (6.4-8.2)
[2022-08-26 08:08] LABS: ALK PHOS 145 U/L (45-117)
[2022-08-26 08:23] LABS: BLOOD UREA NITROGEN 113.4 mg/dL (7-18)
[2022-08-26] MEDS: methylPREDNISolone NA SUCC 40 MG/1 ML VIAL IVPUSH SCH (09:00)
[2022-08-26] MEDS: AMINO ACIDS/PROTEIN HYDROLYS 30 ML LIQUID.PKT PO SCH ×3 (09:01→18:31)
[2022-08-26] MEDS: PANTOPRAZOLE SODIUM 40 MG VIAL IVPUSH SCH ×2 (09:01→21:39)
[2022-08-26] MEDS: HYDROCORTISONE 1% TOPICAL CREAM 30 GM TUBE TP SCH ×2 (09:01→21:38)
[2022-08-26] MEDS: TUBE FEED DECLOGGING SOLUTION 12,000 UNITS NR SCH ×3 (09:01→18:31)
[2022-08-26] MEDS: KETOCONAZOLE 2% TOPICAL CREAM 15 GM TUBE TP SCH ×2 (09:01→21:39)
[2022-08-26] MEDS: SODIUM HYPOCHLORITE 0.25%- 473 ML BULK BOTTLE TP SCH (09:01)
[2022-08-26 09:20] LABS: ANISOCYTOSIS 1+; MACROCYTOSIS 0; PLATELET ESTIMATE DECREASED
[2022-08-26] MEDS: FLUCONAZOLE 200 MG/NS 100 ML IVPB SCH (12:43)
[2022-08-26] MEDS ORDERED: ONDANSETRON 4 MG/2 ML VIAL IVPUSH PRN (15:54)
[2022-08-26] MEDS: MULTIVIT INJ. ADULT COMBO WITH VIT K 1 COMBO 10 ML VIAL IV SCH (16:36)
[2022-08-26] MEDS: ACETAMINOPHEN 1000 MG/100 ML BAG IVPB PRN (16:50)
[2022-08-26] MEDS: MEROPENEM 1 GM in DEXTROSE 5%-WATER 100 ML IVPB SCH (21:37)
[2022-08-27] MEDS: ACETAMINOPHEN 1000 MG/100 ML BAG IVPB PRN (01:58)
[2022-08-27] MEDS: METOPROLOL TARTRATE 5 MG/5 ML VIAL IVPUSH PRN ×2 (02:00→20:42)
[2022-08-27] MEDS: HEPARIN NA (PORCINE) 5,000 UNITS/ML 1ML VIAL SQ SCH ×2 (06:00→14:49)
[2022-08-27] MEDS: metoPROLOL SUCCINATE 25 MG TAB.SR.24H (FP) PO SCH ×3 (06:21→22:12)
[2022-08-27] MEDS: INSULIN SLIDING SCALE (NOVOLOG) 1 VIAL SQ SCH ×4 (07:21→22:32)
[2022-08-27 07:43] LABS: HEMATOCRIT 24.3 % (32.4-45.2); HEMOGLOBIN 7.9 GM/dL (10.7-15.3); MCH 29.9 pg (25.7-33.7); MCHC 32.7 g/dl (32.0-36.0); MEAN CELL VOLUME 91.5 fl (80-96); MEAN PLT VOLUME 13.1 fl (7.5-11.1); RBC 2.65 M/mm3 (3.60-5.2); RDW 19.5 % (11.6-15.6); WHITE BLOOD COUNT 16.2 K/mm3 (4.0-10.0)
[2022-08-27 07:44] LABS: PLATELET COUNT 33 10^3/uL (134-434)
[2022-08-27 07:59] LABS: ALBUMIN 1.2 g/dl (3.4-5.0); ALK PHOS 128 U/L (45-117); ANION GAP 11 MMOL/L (8-16); BILIRUBIN,TOTAL 0.6 mg/dL (0.2-1); BLOOD UREA NITROGEN 128.2 mg/dL (7-18); CALCIUM 7.9 mg/dL (8.5-10.1); CHLORIDE 111 mmol/L (98-107); CO2 20 mmol/L (21-32); CREATININE 2.6 mg/dL (0.55-1.3); GLUCOSE,RANDOM 258 mg/dL (74-106); PHOSPHOROUS 3.8 mg/dL (2.5-4.9); SGOT/AST 40 U/L (15-37); SGPT/ALT 56 U/L (13-61); SODIUM 141 mmol/L (136-145); TOT PROT 3.8 g/dl (6.4-8.2)
[2022-08-27] MEDS: MEROPENEM 1 GM in DEXTROSE 5%-WATER 100 ML IVPB SCH ×2 (09:22→20:42)
[2022-08-27] MEDS: methylPREDNISolone NA SUCC 40 MG/1 ML VIAL IVPUSH SCH (09:23)
[2022-08-27] MEDS: AMINO ACIDS/PROTEIN HYDROLYS 30 ML LIQUID.PKT PO SCH ×2 (09:23→12:36)
[2022-08-27] MEDS: SODIUM HYPOCHLORITE 0.25%- 473 ML BULK BOTTLE TP SCH (09:24)
[2022-08-27] MEDS: PANTOPRAZOLE SODIUM 40 MG VIAL IVPUSH SCH ×2 (09:24→22:12)
[2022-08-27] MEDS: KETOCONAZOLE 2% TOPICAL CREAM 15 GM TUBE TP SCH ×2 (09:25→22:16)
[2022-08-27] MEDS: MULTIVIT INJ. ADULT COMBO WITH VIT K 1 COMBO 10 ML VIAL IV SCH (09:25)
[2022-08-27] MEDS: HYDROCORTISONE 1% TOPICAL CREAM 30 GM TUBE TP SCH ×2 (09:25→22:15)
[2022-08-27] MEDS: TUBE FEED DECLOGGING SOLUTION 12,000 UNITS NR SCH ×3 (09:26→18:27)
[2022-08-27] MEDS: FLUCONAZOLE 200 MG/NS 100 ML IVPB SCH (09:47)
[2022-08-27 09:56] LABS: ANISOCYTOSIS 1+; MACROCYTOSIS 0; PLATELET ESTIMATE DECREASED
[2022-08-27] MEDS ORDERED: AMINO ACIDS 4.25%/D5W 1,000 ML IV SCH (14:30)
[2022-08-27 17:10] LABS: HEMATOCRIT 24.4 % (32.4-45.2); MCH 30.1 pg (25.7-33.7); MCHC 32.7 g/dl (32.0-36.0); MEAN CELL VOLUME 92.1 fl (80-96); MEAN PLT VOLUME 13.3 fl (7.5-11.1); PLATELET COUNT 37 10^3/uL (134-434); RBC 2.65 M/mm3 (3.60-5.2); RDW 19.5 % (11.6-15.6); WHITE BLOOD COUNT 17.6 K/mm3 (4.0-10.0)
[2022-08-27] MEDS ORDERED: ACETAMINOPHEN 1000 MG/100 ML BAG IVPB ONE (18:41)
[2022-08-27] MEDS ORDERED: ACETAMINOPHEN 1000 MG/100 ML BAG IVPB PRN (18:46)
[2022-08-27 20:46] LABS: INR 0.98 (0.83-1.09); PROTHROMBIN TIME (PATIENT) 11.3 SEC (9.7-13.0)
[2022-08-27 20:48] LABS: ACTIVATED PTT 22.8 SECONDS (25.2-36.5)
[2022-08-27] MEDS: DAPTOMYCIN 650 MG in SODIUM CHLORIDE 50 ML IVPB SCH (22:12)
[2022-08-28] MEDS ORDERED: MIDAZOLAM HCL 2 MG/2 ML SINGLE DOSE VIAL IVPUSH ONE (00:37)
[2022-08-28] MEDS ORDERED: RAPID SEQUENCE INTUBATION KIT NR ONE (00:38)
[2022-08-28] MEDS ORDERED: ROCURONIUM BROMIDE 50 MG/5 ML VIAL IV ONE (00:39)
[2022-08-28] MEDS ORDERED: MIDAZOLAM HCL 2 MG/2 ML SINGLE DOSE VIAL ONE ×2 (00:40→00:45)
[2022-08-28] MEDS ORDERED: fentaNYL CITRATE 250 MCG/5 ML VIAL ONE (00:45)
[2022-08-28] MEDS: PHENYLEPHRINE NS PREMIX 50,000 MCG/500 ML BAG CVP SCH (02:10)
[2022-08-28] MEDS: DEXMEDETOMIDINE PREMIX 400 MCG/100 ML BAG IVPB SCH ×2 (02:16→18:03)
[2022-08-28] MEDS: metoPROLOL SUCCINATE 25 MG TAB.SR.24H (FP) PO SCH ×3 (05:26→22:13)
[2022-08-28] MEDS: INSULIN SLIDING SCALE (NOVOLOG) 1 VIAL SQ SCH ×4 (06:51→22:05)
[2022-08-28] MEDS: METOPROLOL TARTRATE 5 MG/5 ML VIAL IVPUSH PRN (07:10)
[2022-08-28 07:37] LABS: HEMATOCRIT 21.5 % (32.4-45.2); MCH 30.1 pg (25.7-33.7); MCHC 32.7 g/dl (32.0-36.0); MEAN CELL VOLUME 92.2 fl (80-96); MEAN PLT VOLUME 11.8 fl (7.5-11.1); RBC 2.33 M/mm3 (3.60-5.2); WHITE BLOOD COUNT 17.6 K/mm3 (4.0-10.0)
[2022-08-28 07:40] LABS: CHLORIDE 110 mmol/L (98-107); SODIUM 141 mmol/L (136-145)
[2022-08-28 07:43] LABS: CALCIUM 7.9 mg/dL (8.5-10.1)
[2022-08-28 07:44] LABS: ALBUMIN 1.1 g/dl (3.4-5.0); ANION GAP 13 MMOL/L (8-16); CO2 18 mmol/L (21-32); GLUCOSE,RANDOM 232 mg/dL (74-106); MAGNESIUM 1.8 mg/dL (1.8-2.4)
[2022-08-28 07:46] LABS: SGPT/ALT 44 U/L (13-61)
[2022-08-28 07:47] LABS: CREATININE 2.7 mg/dL (0.55-1.3); PHOSPHOROUS 4.2 mg/dL (2.5-4.9); SGOT/AST 35 U/L (15-37)
[2022-08-28 07:48] LABS: BILIRUBIN,TOTAL 0.6 mg/dL (0.2-1); TOT PROT 3.6 g/dl (6.4-8.2)
[2022-08-28 07:49] LABS: ALK PHOS 115 U/L (45-117)
[2022-08-28 08:43] LABS: PLATELET COUNT 24 10^3/uL (134-434)
[2022-08-28] MEDS ORDERED: NOREPINEPHRINE BITARTRATE 16,000 MCG in SODIUM CHLORIDE 484 ML IV SCH (08:45)
[2022-08-28] MEDS: MEROPENEM 1 GM in DEXTROSE 5%-WATER 100 ML IVPB SCH ×2 (09:09→20:30)
[2022-08-28] MEDS: MULTIVIT INJ. ADULT COMBO WITH VIT K 1 COMBO 10 ML VIAL IV SCH (09:29)
[2022-08-28] MEDS: PANTOPRAZOLE SODIUM 40 MG VIAL IVPUSH SCH ×2 (09:30→22:05)
[2022-08-28] MEDS: HEPARIN NA (PORCINE) 5,000 UNITS/ML 1ML VIAL SQ SCH ×2 (09:31→22:04)
[2022-08-28] MEDS: methylPREDNISolone NA SUCC 40 MG/1 ML VIAL IVPUSH SCH (09:31)
[2022-08-28 09:35] LABS: ANISOCYTOSIS 0; HELMET CELLS 0; HOWELL-JOLLY BODIES 0; MACROCYTOSIS 0; OVALOCYTE 0; ROULEAU 0; SICKELED CELLS 0; TARGET CELLS 0; TEAR DROP CELLS 0; TOXIC GRANULATION 0
[2022-08-28] MEDS: TUBE FEED DECLOGGING SOLUTION 12,000 UNITS NR SCH ×3 (09:58→17:54)
[2022-08-28] MEDS: SODIUM HYPOCHLORITE 0.25%- 473 ML BULK BOTTLE TP SCH (09:59)
[2022-08-28] MEDS: HYDROCORTISONE 1% TOPICAL CREAM 30 GM TUBE TP SCH ×2 (10:01→22:05)
[2022-08-28] MEDS: KETOCONAZOLE 2% TOPICAL CREAM 15 GM TUBE TP SCH ×2 (10:02→22:05)
[2022-08-28] MEDS: FLUCONAZOLE 200 MG/NS 100 ML IVPB SCH (10:09)
[2022-08-28] MEDS: NOREPINEPHRINE BITARTRATE 16,000 MCG in SODIUM CHLORIDE 484 ML IV SCH (13:02)
[2022-08-28 19:40] LABS: HEMATOCRIT 22.8 % (32.4-45.2); HEMOGLOBIN 7.3 GM/dL (10.7-15.3); MCH 29.7 pg (25.7-33.7); MCHC 31.9 g/dl (32.0-36.0); MEAN CELL VOLUME 93.1 fl (80-96); MEAN PLT VOLUME 12.9 fl (7.5-11.1); RBC 2.44 M/mm3 (3.60-5.2); RDW 19.6 % (11.6-15.6); WHITE BLOOD COUNT 20.8 K/mm3 (4.0-10.0)
[2022-08-28 20:09] LABS: PLATELET COUNT 30 10^3/uL (134-434)
[2022-08-29] MEDS: PHENYLEPHRINE NS PREMIX 50,000 MCG/500 ML BAG CVP SCH (01:36)
[2022-08-29] MEDS: DEXMEDETOMIDINE PREMIX 400 MCG/100 ML BAG IVPB SCH ×3 (01:36→21:38)
[2022-08-29] MEDS: INSULIN SLIDING SCALE (NOVOLOG) 1 VIAL SQ SCH ×4 (06:32→21:37)
[2022-08-29] MEDS: metoPROLOL SUCCINATE 25 MG TAB.SR.24H (FP) PO SCH ×3 (06:34→21:37)
[2022-08-29 06:52] LABS: CHLORIDE 110 mmol/L (98-107); SODIUM 141 mmol/L (136-145)
[2022-08-29 06:56] LABS: ALBUMIN 1.2 g/dl (3.4-5.0); ANION GAP 14 MMOL/L (8-16); CALCIUM 7.9 mg/dL (8.5-10.1); CO2 18 mmol/L (21-32)
[2022-08-29 06:57] LABS: GLUCOSE,RANDOM 273 mg/dL (74-106)
[2022-08-29 06:59] LABS: PHOSPHOROUS 4.8 mg/dL (2.5-4.9); SGPT/ALT 42 U/L (13-61)
[2022-08-29 07:00] LABS: CREATININE 2.8 mg/dL (0.55-1.3); SGOT/AST 45 U/L (15-37)
[2022-08-29 07:01] LABS: BILIRUBIN,TOTAL 0.7 mg/dL (0.2-1); TOT PROT 4.1 g/dl (6.4-8.2)
[2022-08-29 07:08] LABS: ALK PHOS 150 U/L (45-117); BLOOD UREA NITROGEN 146.4 mg/dL (7-18)
[2022-08-29 07:31] LABS: HEMOGLOBIN 7.4 GM/dL (10.7-15.3); MCH 30.2 pg (25.7-33.7); MCHC 32.1 g/dl (32.0-36.0); MEAN CELL VOLUME 94.1 fl (80-96); MEAN PLT VOLUME 12.8 fl (7.5-11.1); PLATELET COUNT 45 10^3/uL (134-434); RBC 2.45 M/mm3 (3.60-5.2); RDW 19.8 % (11.6-15.6)
[2022-08-29 07:32] LABS: WHITE BLOOD COUNT 21.1 K/mm3 (4.0-10.0)
[2022-08-29] MEDS: METOPROLOL TARTRATE 5 MG/5 ML VIAL IVPUSH PRN (08:17)
[2022-08-29] MEDS: MEROPENEM 1 GM in DEXTROSE 5%-WATER 100 ML IVPB SCH ×2 (08:17→20:30)
[2022-08-29 08:40] LABS: ANISOCYTOSIS 1+; MACROCYTOSIS 1+
[2022-08-29] MEDS: SODIUM HYPOCHLORITE 0.25%- 473 ML BULK BOTTLE TP SCH (09:24)
[2022-08-29] MEDS: MULTIVIT INJ. ADULT COMBO WITH VIT K 1 COMBO 10 ML VIAL IV SCH (09:24)
[2022-08-29] MEDS: FLUCONAZOLE 200 MG/NS 100 ML IVPB SCH (09:26)
[2022-08-29] MEDS: methylPREDNISolone NA SUCC 40 MG/1 ML VIAL IVPUSH SCH (09:27)
[2022-08-29] MEDS: KETOCONAZOLE 2% TOPICAL CREAM 15 GM TUBE TP SCH ×2 (09:27→21:37)
[2022-08-29] MEDS: PANTOPRAZOLE SODIUM 40 MG VIAL IVPUSH SCH ×2 (09:27→21:36)
[2022-08-29] MEDS: HYDROCORTISONE 1% TOPICAL CREAM 30 GM TUBE TP SCH ×2 (09:27→21:36)
[2022-08-29] MEDS: TUBE FEED DECLOGGING SOLUTION 12,000 UNITS NR SCH ×3 (09:27→18:42)
[2022-08-29] MEDS: HEPARIN NA (PORCINE) 5,000 UNITS/ML 1ML VIAL SQ SCH ×2 (09:29→21:36)
[2022-08-29] MEDS ORDERED: DESMOPRESSIN ACETATE 4 MCG/ML AMP IVPB ONE (10:26)
[2022-08-29] MEDS ORDERED: ACETAMINOPHEN 1000 MG/100 ML BAG IVPB ONE (15:07)
[2022-08-29 15:24] LABS: INR 0.99 (0.83-1.09); PROTHROMBIN TIME (PATIENT) 11.4 SEC (9.7-13.0)
[2022-08-29 15:27] LABS: ACTIVATED PTT 20.1 SECONDS (25.2-36.5)
[2022-08-29] MEDS ORDERED: VECURONIUM BROMIDE 10 MG/10 ML VIAL ONE (16:29)
[2022-08-29] MEDS ORDERED: SODIUM CHLORIDE 0.9% P/F 10 ML VIAL IJ ONE (16:30)
[2022-08-29] MEDS ORDERED: PHENYLEPHRINE HCL 10 MG/1 ML SINGLE DOSE VIAL ONE (17:02)
[2022-08-29] MEDS ORDERED: MIDAZOLAM HCL 2 MG/2 ML SINGLE DOSE VIAL ONE ×2 (17:06→18:06)
[2022-08-29] MEDS ORDERED: BENZOIN/ALOE VERA/STORAX/TOLU 58 ML BOTTLE ONE (18:05)
[2022-08-29] MEDS: NOREPINEPHRINE BITARTRATE 16,000 MCG in SODIUM CHLORIDE 484 ML IV SCH (18:42)
[2022-08-29 20:27] LABS: BASO % 1.3 % (0-2.0); HEMATOCRIT 26.3 % (32.4-45.2); HEMOGLOBIN 8.2 GM/dL (10.7-15.3); LYMPH % 12.6 % (8-40); MCHC 31.1 g/dl (32.0-36.0); MEAN CELL VOLUME 96.3 fl (80-96); MONO % 1.1 % (3.8-10.2); RBC 2.73 M/mm3 (3.60-5.2); RDW 17.9 % (11.6-15.6)
[2022-08-29 20:59] LABS: ANISOCYTOSIS 2+; MACROCYTOSIS 0; MEAN PLT VOLUME 13.2 fl (7.5-11.1); OVALOCYTE 1+; TARGET CELLS 1+; TOXIC GRANULATION 1+
[2022-08-29 21:00] LABS: PLATELET COUNT 27 10^3/uL (134-434)
[2022-08-29] MEDS: CHLORHEXIDINE GLUCONATE 4% CLEANSER FOR DECOLONIZATION TP SCH (21:36)
[2022-08-29] MEDS: MUPIROCIN 2% TOPICAL OINTMENT FOR DECOLONIZATION NS SCH (21:36)
[2022-08-29] MEDS: DAPTOMYCIN 650 MG in SODIUM CHLORIDE 50 ML IVPB SCH (21:49)
[2022-08-30] MEDS ORDERED: AMINO ACIDS 4.25%/D5W 1,000 ML IV SCH (00:30)
[2022-08-30] MEDS: PHENYLEPHRINE NS PREMIX 50,000 MCG/500 ML BAG CVP SCH ×2 (01:39→20:43)
[2022-08-30] MEDS: DEXMEDETOMIDINE PREMIX 400 MCG/100 ML BAG IVPB SCH ×3 (01:39→20:43)
[2022-08-30] MEDS: metoPROLOL SUCCINATE 25 MG TAB.SR.24H (FP) PO SCH ×3 (06:40→21:43)
[2022-08-30] MEDS: INSULIN SLIDING SCALE (NOVOLOG) 1 VIAL SQ SCH ×4 (06:41→21:55)
[2022-08-30 07:01] LABS: HEMATOCRIT 26.7 % (32.4-45.2); HEMOGLOBIN 8.7 GM/dL (10.7-15.3); MCH 30.3 pg (25.7-33.7); MCHC 32.6 g/dl (32.0-36.0); MEAN CELL VOLUME 92.8 fl (80-96); MEAN PLT VOLUME 12.5 fl (7.5-11.1); RBC 2.87 M/mm3 (3.60-5.2); RDW 18.3 % (11.6-15.6)
[2022-08-30 07:13] LABS: WHITE BLOOD COUNT 20.2 K/mm3 (4.0-10.0)
[2022-08-30 07:14] LABS: PLATELET COUNT 34 10^3/uL (134-434)
[2022-08-30 07:41] LABS: CHLORIDE 110 mmol/L (98-107); SODIUM 139 mmol/L (136-145)
[2022-08-30 07:45] LABS: ALBUMIN 1.4 g/dl (3.4-5.0); GLUCOSE,RANDOM 219 mg/dL (74-106); MAGNESIUM 2.1 mg/dL (1.8-2.4)
[2022-08-30 07:48] LABS: ANION GAP 14 MMOL/L (8-16); CO2 15 mmol/L (21-32); CREATININE 2.9 mg/dL (0.55-1.3); PHOSPHOROUS 5.4 mg/dL (2.5-4.9); SGOT/AST 42 U/L (15-37); SGPT/ALT 42 U/L (13-61)
[2022-08-30 07:49] LABS: TOT PROT 4.2 g/dl (6.4-8.2)
[2022-08-30 07:50] LABS: ALK PHOS 153 U/L (45-117)
[2022-08-30 07:55] LABS: BLOOD UREA NITROGEN 148.6 mg/dL (7-18)
[2022-08-30] MEDS: TUBE FEED DECLOGGING SOLUTION 12,000 UNITS NR SCH ×3 (08:21→18:07)
[2022-08-30] MEDS: MEROPENEM 1 GM in DEXTROSE 5%-WATER 100 ML IVPB SCH ×2 (09:48→20:30)
[2022-08-30] MEDS: methylPREDNISolone NA SUCC 40 MG/1 ML VIAL IVPUSH SCH (09:51)
[2022-08-30] MEDS: HEPARIN NA (PORCINE) 5,000 UNITS/ML 1ML VIAL SQ SCH ×2 (09:51→21:47)
[2022-08-30] MEDS: PANTOPRAZOLE SODIUM 40 MG VIAL IVPUSH SCH ×2 (09:51→21:46)
[2022-08-30 10:01] LABS: ANISOCYTOSIS 0; HELMET CELLS 0; HOWELL-JOLLY BODIES 0; MACROCYTOSIS 0; OVALOCYTE 0; ROULEAU 0; SICKELED CELLS 0; TARGET CELLS 0; TEAR DROP CELLS 0; TOXIC GRANULATION 0
[2022-08-30] MEDS: FLUCONAZOLE 200 MG/NS 100 ML IVPB SCH (11:19)
[2022-08-30] MEDS: MUPIROCIN 2% TOPICAL OINTMENT FOR DECOLONIZATION NS SCH ×2 (11:21→21:47)
[2022-08-30] MEDS: HYDROCORTISONE 1% TOPICAL CREAM 30 GM TUBE TP SCH ×2 (11:22→21:47)
[2022-08-30] MEDS: KETOCONAZOLE 2% TOPICAL CREAM 15 GM TUBE TP SCH ×2 (11:23→21:47)
[2022-08-30] MEDS: MULTIVIT INJ. ADULT COMBO WITH VIT K 1 COMBO 10 ML VIAL IV SCH (11:36)
[2022-08-30] MEDS ORDERED: MIDAZOLAM HCL 5 MG/1 ML Single Dose Vial IVPUSH ONE (11:52)
[2022-08-30] MEDS ORDERED: [UNRECOGNIZED DRUG - OTHER] IVPB SCH (16:00)
[2022-08-30] MEDS ORDERED: POTASSIUM CHLORIDE IVPB SCH (16:00)
[2022-08-30] MEDS ORDERED: [UNRECOGNIZED DRUG - OTHER] IVPB SCH (16:00)
[2022-08-30] MEDS ORDERED: CALCIUM GLUCONATE IVPB SCH (16:00)
[2022-08-30] MEDS ORDERED: SODIUM CHLORIDE IVPB SCH ×2 (16:00)
[2022-08-30] MEDS: NOREPINEPHRINE BITARTRATE 16,000 MCG in SODIUM CHLORIDE 484 ML IV SCH ×2 (20:26→21:11)
[2022-08-30] MEDS ORDERED: ONDANSETRON 4 MG/2 ML VIAL IVPUSH PRN (20:41)
[2022-08-30] MEDS: FAT EMUL/SOY/MCT/OLIV/FISH OIL 250 ML IV SCH (21:47)
[2022-08-30] MEDS: CHLORHEXIDINE GLUCONATE 4% CLEANSER FOR DECOLONIZATION TP SCH (21:47)
[2022-08-31] MEDS: DEXMEDETOMIDINE PREMIX 400 MCG/100 ML BAG IVPB SCH ×4 (01:22→20:41)
[2022-08-31] MEDS: INSULIN SLIDING SCALE (NOVOLOG) 1 VIAL SQ SCH ×4 (06:06→22:31)
[2022-08-31] MEDS: metoPROLOL SUCCINATE 25 MG TAB.SR.24H (FP) PO SCH ×3 (06:06→22:32)
[2022-08-31 07:09] LABS: HEMATOCRIT 26.2 % (32.4-45.2); HEMOGLOBIN 8.6 GM/dL (10.7-15.3); MCH 30.9 pg (25.7-33.7); MEAN CELL VOLUME 93.7 fl (80-96); MEAN PLT VOLUME 11.2 fl (7.5-11.1); RDW 18.3 % (11.6-15.6); WHITE BLOOD COUNT 10.8 K/mm3 (4.0-10.0)
[2022-08-31 07:43] LABS: CHLORIDE 113 mmol/L (98-107); SODIUM 141 mmol/L (136-145)
[2022-08-31] MEDS: METOPROLOL TARTRATE 5 MG/5 ML VIAL IVPUSH PRN ×2 (07:47→15:47)
[2022-08-31] MEDS: MEROPENEM 1 GM in DEXTROSE 5%-WATER 100 ML IVPB SCH ×2 (07:49→20:20)
[2022-08-31 08:05] LABS: ALBUMIN 1.4 g/dl (3.4-5.0); ANION GAP 14 MMOL/L (8-16); CALCIUM 8.1 mg/dL (8.5-10.1); CO2 15 mmol/L (21-32); GLUCOSE,RANDOM 283 mg/dL (74-106); MAGNESIUM 2.4 mg/dL (1.8-2.4)
[2022-08-31 08:08] LABS: CREATININE 2.7 mg/dL (0.55-1.3); PHOSPHOROUS 4.6 mg/dL (2.5-4.9); SGOT/AST 44 U/L (15-37); SGPT/ALT 41 U/L (13-61)
[2022-08-31 08:09] LABS: BILIRUBIN,TOTAL 0.8 mg/dL (0.2-1); TOT PROT 4.2 g/dl (6.4-8.2)
[2022-08-31 08:10] LABS: ALK PHOS 146 U/L (45-117)
[2022-08-31 08:23] LABS: BLOOD UREA NITROGEN 148.5 mg/dL (7-18)
[2022-08-31 09:00] LABS: ANISOCYTOSIS 0; HELMET CELLS 0; HOWELL-JOLLY BODIES 0; MACROCYTOSIS 0; OVALOCYTE 0; ROULEAU 0; SICKELED CELLS 0; TARGET CELLS 0; TEAR DROP CELLS 0; TOXIC GRANULATION 0
[2022-08-31] MEDS: methylPREDNISolone NA SUCC 40 MG/1 ML VIAL IVPUSH SCH (09:27)
[2022-08-31] MEDS: MUPIROCIN 2% TOPICAL OINTMENT FOR DECOLONIZATION NS SCH ×2 (09:28→22:30)
[2022-08-31] MEDS: PANTOPRAZOLE SODIUM 40 MG VIAL IVPUSH SCH ×2 (09:28→22:31)
[2022-08-31] MEDS: KETOCONAZOLE 2% TOPICAL CREAM 15 GM TUBE TP SCH ×2 (09:28→22:31)
[2022-08-31] MEDS: HYDROCORTISONE 1% TOPICAL CREAM 30 GM TUBE TP SCH ×2 (09:28→22:30)
[2022-08-31] MEDS: HEPARIN NA (PORCINE) 5,000 UNITS/ML 1ML VIAL SQ SCH ×2 (09:28→22:30)
[2022-08-31] MEDS: TUBE FEED DECLOGGING SOLUTION 12,000 UNITS NR SCH ×3 (09:28→17:45)
[2022-08-31] MEDS ORDERED: METHYLENE BLUE 50 MG/10 ML AMPUL ONE (10:51)
[2022-08-31 11:19] LABS: PLATELET COUNT 33 10^3/uL (134-434)
[2022-08-31] MEDS: FLUCONAZOLE 200 MG/NS 100 ML IVPB SCH (11:30)
[2022-08-31] MEDS ORDERED: CALCIUM GLUCONATE IVPB SCH (16:00)
[2022-08-31] MEDS ORDERED: SODIUM CHLORIDE IVPB SCH (16:00)
[2022-08-31] MEDS ORDERED: [UNRECOGNIZED DRUG - OTHER] IVPB SCH (16:00)
[2022-08-31] MEDS: NOREPINEPHRINE BITARTRATE 16,000 MCG in SODIUM CHLORIDE 484 ML IV SCH (19:15)
[2022-08-31] MEDS: PHENYLEPHRINE NS PREMIX 50,000 MCG/500 ML BAG CVP SCH (20:41)
[2022-08-31] MEDS: DAPTOMYCIN 650 MG in SODIUM CHLORIDE 50 ML IVPB SCH (21:39)
[2022-08-31] MEDS: CHLORHEXIDINE GLUCONATE 4% CLEANSER FOR DECOLONIZATION TP SCH (22:30)
[2022-08-31] MEDS: FAT EMUL/SOY/MCT/OLIV/FISH OIL 250 ML IV SCH (22:31)
[2022-09-01] MEDS: metoPROLOL SUCCINATE 25 MG TAB.SR.24H (FP) PO SCH (05:58)
[2022-09-01] MEDS: INSULIN SLIDING SCALE (NOVOLOG) 1 VIAL SQ SCH ×4 (06:01→20:05)
[2022-09-01] MEDS ORDERED: ACETAMINOPHEN 1000 MG/100 ML BAG IVPB PRN (06:34)
[2022-09-01 07:55] LABS: CHLORIDE 114 mmol/L (98-107); HEMATOCRIT 28.3 % (32.4-45.2); HEMOGLOBIN 9.1 GM/dL (10.7-15.3); MCHC 32.1 g/dl (32.0-36.0); MEAN CELL VOLUME 96.5 fl (80-96); RBC 2.93 M/mm3 (3.60-5.2); RDW 19.4 % (11.6-15.6); SODIUM 143 mmol/L (136-145); WHITE BLOOD COUNT 12.3 K/mm3 (4.0-10.0)
[2022-09-01 07:59] LABS: CALCIUM 8.4 mg/dL (8.5-10.1)
[2022-09-01 08:01] LABS: ALBUMIN 1.4 g/dl (3.4-5.0); ANION GAP 14 MMOL/L (8-16); CO2 16 mmol/L (21-32); GLUCOSE,RANDOM 328 mg/dL (74-106); MAGNESIUM 2.4 mg/dL (1.8-2.4)
[2022-09-01 08:03] LABS: CREATININE 2.4 mg/dL (0.55-1.3); PHOSPHOROUS 4.3 mg/dL (2.5-4.9); SGOT/AST 40 U/L (15-37); SGPT/ALT 37 U/L (13-61)
[2022-09-01 08:05] LABS: BILIRUBIN,TOTAL 0.6 mg/dL (0.2-1); TOT PROT 4.7 g/dl (6.4-8.2)
[2022-09-01 08:07] LABS: ALK PHOS 158 U/L (45-117)
[2022-09-01] MEDS: MEROPENEM 1 GM in DEXTROSE 5%-WATER 100 ML IVPB SCH ×2 (08:14→20:01)
[2022-09-01 08:30] LABS: BLOOD UREA NITROGEN 154.8 mg/dL (7-18)
[2022-09-01] MEDS: TUBE FEED DECLOGGING SOLUTION 12,000 UNITS NR SCH ×3 (08:33→17:10)
[2022-09-01 08:47] LABS: EPI CELLS 16 /uL (0-25.1); HYALINE CASTS 2 /uL (0-3.1); URINE APPEARANCE CLOUDY; URINE BACTERIA 11 /uL (0-1359); URINE BILIRUBIN NEGATIVE (NEGATIVE); URINE COLOR YELLOW; URINE GLUCOSE (UA) TRACE (NEGATIVE); URINE KETONE NEGATIVE (NEGATIVE); URINE LEUK ESTERASE NEGATIVE (NEGATIVE); URINE NITRITE NEGATIVE (NEGATIVE); URINE PROTEIN 2+ (NEGATIVE); URINE RBC 91 /uL (0-23.9); URINE UROBILINOGEN 0.2 mg/dL (0.2-1.0); URINE WBC 31 /uL (0-25.8)
[2022-09-01 08:49] LABS: PLATELET COUNT 34 10^3/uL (134-434)
[2022-09-01 09:25] LABS: YEAST NO SEEN (NEGATIVE)
[2022-09-01] MEDS: MUPIROCIN 2% TOPICAL OINTMENT FOR DECOLONIZATION NS SCH ×2 (10:03→22:08)
[2022-09-01] MEDS: FLUCONAZOLE 200 MG/NS 100 ML IVPB SCH (10:04)
[2022-09-01] MEDS: HEPARIN NA (PORCINE) 5,000 UNITS/ML 1ML VIAL SQ SCH ×2 (10:04→22:02)
[2022-09-01] MEDS: HYDROCORTISONE 1% TOPICAL CREAM 30 GM TUBE TP SCH ×2 (10:05→22:08)
[2022-09-01] MEDS: PANTOPRAZOLE SODIUM 40 MG VIAL IVPUSH SCH ×2 (10:06→22:02)
[2022-09-01] MEDS: methylPREDNISolone NA SUCC 40 MG/1 ML VIAL IVPUSH SCH (10:06)
[2022-09-01] MEDS: KETOCONAZOLE 2% TOPICAL CREAM 15 GM TUBE TP SCH ×2 (10:06→22:08)
[2022-09-01] MEDS: DEXMEDETOMIDINE PREMIX 400 MCG/100 ML BAG IVPB SCH ×2 (10:07→20:50)
[2022-09-01 10:33] LABS: ANISOCYTOSIS 3+; MACROCYTOSIS 0
[2022-09-01] MEDS: [UNRECOGNIZED DRUG - OTHER] IVPB SCH (17:06)
[2022-09-01] MEDS: CALCIUM GLUCONATE IVPB SCH (17:06)
[2022-09-01] MEDS: SODIUM CHLORIDE IVPB SCH (17:06)
[2022-09-01] MEDS: PHENYLEPHRINE NS PREMIX 50,000 MCG/500 ML BAG CVP SCH (20:41)
[2022-09-01] MEDS: NOREPINEPHRINE BITARTRATE 16,000 MCG in SODIUM CHLORIDE 484 ML IV SCH (21:45)
[2022-09-01] MEDS: CHLORHEXIDINE GLUCONATE 4% CLEANSER FOR DECOLONIZATION TP SCH (22:08)
[2022-09-01] MEDS: FAT EMUL/SOY/MCT/OLIV/FISH OIL 250 ML IV SCH (22:10)
[2022-09-02] MEDS: DEXMEDETOMIDINE PREMIX 400 MCG/100 ML BAG IVPB SCH ×3 (02:41→21:19)
[2022-09-02] MEDS: INSULIN SLIDING SCALE (NOVOLOG) 1 VIAL SQ SCH ×4 (02:48→21:31)
[2022-09-02 08:06] LABS: HEMATOCRIT 26.6 % (32.4-45.2); HEMOGLOBIN 8.7 GM/dL (10.7-15.3); MCH 31.4 pg (25.7-33.7); MCHC 32.6 g/dl (32.0-36.0); MEAN CELL VOLUME 96.3 fl (80-96); MEAN PLT VOLUME 11.3 fl (7.5-11.1); RBC 2.77 M/mm3 (3.60-5.2); RDW 19.7 % (11.6-15.6); WHITE BLOOD COUNT 10.4 K/mm3 (4.0-10.0)
[2022-09-02] MEDS: MEROPENEM 1 GM in DEXTROSE 5%-WATER 100 ML IVPB SCH ×2 (08:10→20:12)
[2022-09-02] MEDS: TUBE FEED DECLOGGING SOLUTION 12,000 UNITS NR SCH ×4 (08:12→21:20)
[2022-09-02 08:21] LABS: CHLORIDE 115 mmol/L (98-107); SODIUM 143 mmol/L (136-145)
[2022-09-02 08:26] LABS: CALCIUM 8.6 mg/dL (8.5-10.1)
[2022-09-02 08:27] LABS: ALBUMIN 1.2 g/dl (3.4-5.0); ANION GAP 12 MMOL/L (8-16); CO2 16 mmol/L (21-32); GLUCOSE,RANDOM 342 mg/dL (74-106); MAGNESIUM 2.4 mg/dL (1.8-2.4)
[2022-09-02 08:29] LABS: PHOSPHOROUS 3.9 mg/dL (2.5-4.9)
[2022-09-02 08:30] LABS: CREATININE 2.3 mg/dL (0.55-1.3); PLATELET COUNT 18 10^3/uL (134-434); SGOT/AST 41 U/L (15-37); SGPT/ALT 29 U/L (13-61)
[2022-09-02 08:31] LABS: BILIRUBIN,TOTAL 0.6 mg/dL (0.2-1)
[2022-09-02 08:33] LABS: ALK PHOS 146 U/L (45-117); TOT PROT 4.4 g/dl (6.4-8.2)
[2022-09-02 08:51] LABS: BLOOD UREA NITROGEN 168.8 mg/dL (7-18)
[2022-09-02] MEDS: FLUCONAZOLE 200 MG/NS 100 ML IVPB SCH (09:34)
[2022-09-02] MEDS: methylPREDNISolone NA SUCC 40 MG/1 ML VIAL IVPUSH SCH (09:35)
[2022-09-02] MEDS: HYDROCORTISONE 1% TOPICAL CREAM 30 GM TUBE TP SCH ×2 (09:35→21:19)
[2022-09-02] MEDS: MUPIROCIN 2% TOPICAL OINTMENT FOR DECOLONIZATION NS SCH ×2 (09:35→21:19)
[2022-09-02] MEDS: PANTOPRAZOLE SODIUM 40 MG VIAL IVPUSH SCH ×2 (09:35→21:19)
[2022-09-02] MEDS: KETOCONAZOLE 2% TOPICAL CREAM 15 GM TUBE TP SCH ×2 (09:35→21:19)
[2022-09-02 09:54] LABS: ANISOCYTOSIS 0; HELMET CELLS 0; HOWELL-JOLLY BODIES 0; MACROCYTOSIS 0; OVALOCYTE 0; ROULEAU 0; SICKELED CELLS 0; TARGET CELLS 0; TEAR DROP CELLS 0; TOXIC GRANULATION 0
[2022-09-02] MEDS: FENTANYL NS IVPB 500 MCG/100 ML BAG IVPB SCH (10:20)
[2022-09-02] MEDS: SODIUM CHLORIDE IVPB SCH (17:17)
[2022-09-02] MEDS: CALCIUM GLUCONATE IVPB SCH (17:17)
[2022-09-02] MEDS: [UNRECOGNIZED DRUG - OTHER] IVPB SCH (17:17)
[2022-09-02] MEDS ORDERED: INSULIN SLIDING SCALE (NOVOLOG) 1 VIAL SQ SCH (18:45)
[2022-09-02] MEDS: METOPROLOL TARTRATE 5 MG/5 ML VIAL IVPUSH PRN (19:53)
[2022-09-02] MEDS: DAPTOMYCIN 650 MG in SODIUM CHLORIDE 50 ML IVPB SCH ×2 (21:17→22:06)
[2022-09-02] MEDS: FAT EMUL/SOY/MCT/OLIV/FISH OIL 250 ML IV SCH (21:19)
[2022-09-02] MEDS: CHLORHEXIDINE GLUCONATE 4% CLEANSER FOR DECOLONIZATION TP SCH (21:19)
[2022-09-03] MEDS: FENTANYL NS IVPB 500 MCG/100 ML BAG IVPB SCH ×2 (00:59→21:38)
[2022-09-03] MEDS: TUBE FEED DECLOGGING SOLUTION 12,000 UNITS NR SCH ×3 (06:04→21:59)
[2022-09-03] MEDS: INSULIN SLIDING SCALE (NOVOLOG) 1 VIAL SQ SCH ×4 (06:04→21:59)
[2022-09-03 07:42] LABS: HEMATOCRIT 25.1 % (32.4-45.2); HEMOGLOBIN 8.3 GM/dL (10.7-15.3); MCH 31.7 pg (25.7-33.7); MCHC 33.2 g/dl (32.0-36.0); MEAN CELL VOLUME 95.7 fl (80-96); MEAN PLT VOLUME 10.4 fl (7.5-11.1); RBC 2.63 M/mm3 (3.60-5.2); RDW 20.5 % (11.6-15.6); WHITE BLOOD COUNT 8.5 K/mm3 (4.0-10.0)
[2022-09-03 07:45] LABS: PLATELET COUNT 19 10^3/uL (134-434)
[2022-09-03 08:13] LABS: CHLORIDE 113 mmol/L (98-107); SODIUM 142 mmol/L (136-145)
[2022-09-03 08:14] LABS: CALCIUM 8.3 mg/dL (8.5-10.1)
[2022-09-03 08:16] LABS: ALBUMIN 1.4 g/dl (3.4-5.0); ANION GAP 13 MMOL/L (8-16); CO2 16 mmol/L (21-32); GLUCOSE,RANDOM 327 mg/dL (74-106); MAGNESIUM 2.4 mg/dL (1.8-2.4)
[2022-09-03 08:19] LABS: BILIRUBIN,TOTAL 0.6 mg/dL (0.2-1); PHOSPHOROUS 3.6 mg/dL (2.5-4.9); SGOT/AST 43 U/L (15-37); SGPT/ALT 24 U/L (13-61)
[2022-09-03 08:21] LABS: ALK PHOS 149 U/L (45-117); TOT PROT 4.6 g/dl (6.4-8.2)
[2022-09-03 08:56] LABS: BLOOD UREA NITROGEN 172.9 mg/dL (7-18)
[2022-09-03] MEDS: MEROPENEM 1 GM in DEXTROSE 5%-WATER 100 ML IVPB SCH ×2 (09:10→20:35)
[2022-09-03 10:18] LABS: CORRECTED WBC 7.66 K/mm3
[2022-09-03 10:19] LABS: PLATELET ESTIMATE DECREASED
[2022-09-03] MEDS: FLUCONAZOLE 200 MG/NS 100 ML IVPB SCH (10:25)
[2022-09-03] MEDS: PANTOPRAZOLE SODIUM 40 MG VIAL IVPUSH SCH ×2 (10:26→21:37)
[2022-09-03] MEDS: HYDROCORTISONE 1% TOPICAL CREAM 30 GM TUBE TP SCH ×2 (10:27→21:18)
[2022-09-03] MEDS: methylPREDNISolone NA SUCC 40 MG/1 ML VIAL IVPUSH SCH (10:27)
[2022-09-03] MEDS: MUPIROCIN 2% TOPICAL OINTMENT FOR DECOLONIZATION NS SCH (10:27)
[2022-09-03] MEDS: KETOCONAZOLE 2% TOPICAL CREAM 15 GM TUBE TP SCH ×2 (10:27→21:18)
[2022-09-03] MEDS: MIDAZOLAM IN 0.9 % SOD.CHLORID 100 MG/100 ML PLAST..BAG IVPB SCH (10:31)
[2022-09-03] MEDS: DEXMEDETOMIDINE PREMIX 400 MCG/100 ML BAG IVPB SCH (10:35)
[2022-09-03] MEDS ORDERED: INSULIN REGULAR IVPB SCH (16:00)
[2022-09-03] MEDS ORDERED: CALCIUM GLUCONATE IVPB SCH (16:00)
[2022-09-03] MEDS ORDERED: MAGNESIUM SULFATE IVPB SCH (16:00)
[2022-09-03] MEDS ORDERED: [UNRECOGNIZED DRUG - OTHER] IVPB SCH (16:00)
[2022-09-03] MEDS: CHLORHEXIDINE GLUCONATE 4% CLEANSER FOR DECOLONIZATION TP SCH (21:18)
[2022-09-03] MEDS: FAT EMUL/SOY/MCT/OLIV/FISH OIL 250 ML IV SCH (21:36)
[2022-09-04] MEDS: TUBE FEED DECLOGGING SOLUTION 12,000 UNITS NR SCH ×3 (06:02→22:12)
[2022-09-04] MEDS: INSULIN SLIDING SCALE (NOVOLOG) 1 VIAL SQ SCH ×4 (06:03→22:16)
[2022-09-04 07:57] LABS: HEMATOCRIT 23.8 % (32.4-45.2); MCH 32.1 pg (25.7-33.7); MCHC 33.5 g/dl (32.0-36.0); MEAN PLT VOLUME 9.2 fl (7.5-11.1); RBC 2.48 M/mm3 (3.60-5.2); RDW 21.7 % (11.6-15.6)
[2022-09-04] MEDS: MEROPENEM 1 GM in DEXTROSE 5%-WATER 100 ML IVPB SCH ×2 (08:00→20:45)
[2022-09-04 08:11] LABS: PLATELET COUNT 11 10^3/uL (134-434)
[2022-09-04 08:28] LABS: ALBUMIN 1.3 g/dl (3.4-5.0); ANION GAP 14 MMOL/L (8-16); CALCIUM 8.6 mg/dL (8.5-10.1); CHLORIDE 113 mmol/L (98-107); CO2 16 mmol/L (21-32); GLUCOSE,RANDOM 329 mg/dL (74-106); MAGNESIUM 2.6 mg/dL (1.8-2.4); SODIUM 143 mmol/L (136-145)
[2022-09-04 08:32] LABS: BILIRUBIN,TOTAL 0.6 mg/dL (0.2-1); CREATININE 1.8 mg/dL (0.55-1.3); PHOSPHOROUS 3.6 mg/dL (2.5-4.9); SGOT/AST 38 U/L (15-37); SGPT/ALT 21 U/L (13-61); TOT PROT 4.4 g/dl (6.4-8.2)
[2022-09-04 08:34] LABS: ALK PHOS 159 U/L (45-117)
[2022-09-04] MEDS: FENTANYL NS IVPB 500 MCG/100 ML BAG IVPB SCH ×2 (08:45→17:07)
[2022-09-04 09:00] LABS: BLOOD UREA NITROGEN 171.1 mg/dL (7-18)
[2022-09-04] MEDS ORDERED: ROCURONIUM BROMIDE 50 MG/5 ML VIAL IVPUSH ONE (09:16)
[2022-09-04] MEDS ORDERED: PROPOFOL 200 MG/20 ML VIAL IVPUSH ONE (09:26)
[2022-09-04] MEDS: MIDAZOLAM IN 0.9 % SOD.CHLORID 100 MG/100 ML PLAST..BAG IVPB SCH ×2 (09:30→17:08)
[2022-09-04] MEDS: BACITRACIN 15 GM TUBE TOPICAL OINTMENT TP SCH ×2 (09:47→22:13)
[2022-09-04] MEDS: HYDROCORTISONE 1% TOPICAL CREAM 30 GM TUBE TP SCH ×2 (09:48→22:13)
[2022-09-04 09:49] LABS: ANISOCYTOSIS 2+; MACROCYTOSIS 1+; PLATELET ESTIMATE DECREASED
[2022-09-04] MEDS: methylPREDNISolone NA SUCC 40 MG/1 ML VIAL IVPUSH SCH (09:50)
[2022-09-04] MEDS: PANTOPRAZOLE SODIUM 40 MG VIAL IVPUSH SCH ×2 (09:50→22:12)
[2022-09-04] MEDS: KETOCONAZOLE 2% TOPICAL CREAM 15 GM TUBE TP SCH ×2 (09:50→22:12)
[2022-09-04] MEDS: FLUCONAZOLE 200 MG/NS 100 ML IVPB SCH (10:21)
[2022-09-04] MEDS: NOREPINEPHRINE BITARTRATE/D5W 8 MG/250 ML BAG IVPB SCH (20:45)
[2022-09-04] MEDS: DEXMEDETOMIDINE PREMIX 400 MCG/100 ML BAG IVPB SCH (20:46)
[2022-09-04] MEDS: CHLORHEXIDINE GLUCONATE 4% CLEANSER FOR DECOLONIZATION TP SCH (22:12)
[2022-09-04] MEDS: DAPTOMYCIN 650 MG in SODIUM CHLORIDE 50 ML IVPB SCH (22:45)
[2022-09-05] MEDS: INSULIN SLIDING SCALE (NOVOLOG) 1 VIAL SQ SCH ×4 (06:42→22:00)
[2022-09-05] MEDS: TUBE FEED DECLOGGING SOLUTION 12,000 UNITS NR SCH ×3 (06:42→22:01)
[2022-09-05 08:22] LABS: HEMATOCRIT 23.6 % (32.4-45.2); HEMOGLOBIN 7.6 GM/dL (10.7-15.3); MCH 31.6 pg (25.7-33.7); MCHC 32.1 g/dl (32.0-36.0); MEAN CELL VOLUME 98.4 fl (80-96); MEAN PLT VOLUME 11.7 fl (7.5-11.1); PLATELET COUNT 52 10^3/uL (134-434); RDW 23.6 % (11.6-15.6); WHITE BLOOD COUNT 12.1 K/mm3 (4.0-10.0)
[2022-09-05 08:35] LABS: CHLORIDE 114 mmol/L (98-107); SODIUM 144 mmol/L (136-145)
[2022-09-05 08:38] LABS: CALCIUM 8.7 mg/dL (8.5-10.1)
[2022-09-05 08:40] LABS: ALBUMIN 1.4 g/dl (3.4-5.0); ANION GAP 15 MMOL/L (8-16); CO2 16 mmol/L (21-32); GLUCOSE,RANDOM 272 mg/dL (74-106); MAGNESIUM 2.6 mg/dL (1.8-2.4)
[2022-09-05 08:42] LABS: CREATININE 1.8 mg/dL (0.55-1.3); SGOT/AST 57 U/L (15-37); SGPT/ALT 19 U/L (13-61)
[2022-09-05 08:45] LABS: ALK PHOS 154 U/L (45-117); BILIRUBIN,TOTAL 0.8 mg/dL (0.2-1); TOT PROT 4.8 g/dl (6.4-8.2)
[2022-09-05 09:02] LABS: BLOOD UREA NITROGEN 179.6 mg/dL (7-18)
[2022-09-05 10:05] LABS: ANISOCYTOSIS 2+; CORRECTED WBC 10.25 K/mm3; MACROCYTOSIS 0
[2022-09-05] MEDS: MEROPENEM 1 GM in DEXTROSE 5%-WATER 100 ML IVPB SCH ×2 (10:47→20:29)
[2022-09-05] MEDS: FENTANYL NS IVPB 500 MCG/100 ML BAG IVPB SCH (10:48)
[2022-09-05] MEDS: methylPREDNISolone NA SUCC 40 MG/1 ML VIAL IVPUSH SCH (10:52)
[2022-09-05] MEDS: PANTOPRAZOLE SODIUM 40 MG VIAL IVPUSH SCH ×2 (10:52→22:01)
[2022-09-05] MEDS: HYDROCORTISONE 1% TOPICAL CREAM 30 GM TUBE TP SCH ×2 (10:52→22:00)
[2022-09-05] MEDS: BACITRACIN 15 GM TUBE TOPICAL OINTMENT TP SCH ×2 (10:53→21:59)
[2022-09-05] MEDS: MIDAZOLAM IN 0.9 % SOD.CHLORID 100 MG/100 ML PLAST..BAG IVPB SCH (10:53)
[2022-09-05] MEDS: KETOCONAZOLE 2% TOPICAL CREAM 15 GM TUBE TP SCH ×2 (10:53→22:00)
[2022-09-05] MEDS: FLUCONAZOLE 200 MG/NS 100 ML IVPB SCH (11:30)
[2022-09-05] MEDS ORDERED: [UNRECOGNIZED DRUG - OTHER] IVPB SCH (16:00)
[2022-09-05] MEDS ORDERED: INSULIN REGULAR IVPB SCH (16:00)
[2022-09-05] MEDS ORDERED: CALCIUM GLUCONATE IVPB SCH (16:00)
[2022-09-05] MEDS: NOREPINEPHRINE BITARTRATE/D5W 8 MG/250 ML BAG IVPB SCH (20:25)
[2022-09-05] MEDS: DEXMEDETOMIDINE PREMIX 400 MCG/100 ML BAG IVPB SCH (20:41)
[2022-09-05] MEDS: CHLORHEXIDINE GLUCONATE 4% CLEANSER FOR DECOLONIZATION TP SCH (22:00)
[2022-09-05] MEDS: FAT EMUL/SOY/MCT/OLIV/FISH OIL 250 ML IV SCH (22:01)
[2022-09-06] MEDS: TUBE FEED DECLOGGING SOLUTION 12,000 UNITS NR SCH ×3 (06:23→21:31)
[2022-09-06] MEDS: INSULIN SLIDING SCALE (NOVOLOG) 1 VIAL SQ SCH ×4 (06:24→21:43)
[2022-09-06 07:27] LABS: HEMATOCRIT 25.2 % (32.4-45.2); HEMOGLOBIN 8.1 GM/dL (10.7-15.3); MCH 31.5 pg (25.7-33.7); MCHC 32.1 g/dl (32.0-36.0); MEAN CELL VOLUME 98.1 fl (80-96); MEAN PLT VOLUME 12.1 fl (7.5-11.1); PLATELET COUNT 43 10^3/uL (134-434); RBC 2.57 M/mm3 (3.60-5.2)
[2022-09-06 07:44] LABS: CHLORIDE 115 mmol/L (98-107); SODIUM 144 mmol/L (136-145)
[2022-09-06 07:47] LABS: CALCIUM 8.7 mg/dL (8.5-10.1)
[2022-09-06 07:48] LABS: ANION GAP 15 MMOL/L (8-16); CO2 15 mmol/L (21-32); MAGNESIUM 2.6 mg/dL (1.8-2.4)
[2022-09-06 07:50] LABS: ALBUMIN 1.3 g/dl (3.4-5.0); GLUCOSE,RANDOM 216 mg/dL (74-106)
[2022-09-06 07:51] LABS: CREATININE 1.9 mg/dL (0.55-1.3); PHOSPHOROUS 5.7 mg/dL (2.5-4.9); SGPT/ALT 22 U/L (13-61)
[2022-09-06 07:52] LABS: SGOT/AST 53 U/L (15-37)
[2022-09-06 07:53] LABS: BILIRUBIN,TOTAL 0.7 mg/dL (0.2-1); TOT PROT 4.8 g/dl (6.4-8.2)
[2022-09-06 07:54] LABS: ALK PHOS 156 U/L (45-117)
[2022-09-06 07:56] LABS: WHITE BLOOD COUNT 14.5 K/mm3 (4.0-10.0)
[2022-09-06 08:30] LABS: BLOOD UREA NITROGEN 176.3 mg/dL (7-18)
[2022-09-06 09:43] LABS: ANISOCYTOSIS 1+; MACROCYTOSIS 1+
[2022-09-06] MEDS: methylPREDNISolone NA SUCC 40 MG/1 ML VIAL IVPUSH SCH (10:20)
[2022-09-06] MEDS: PANTOPRAZOLE SODIUM 40 MG VIAL IVPUSH SCH ×2 (10:21→21:30)
[2022-09-06] MEDS: MEROPENEM 1 GM in DEXTROSE 5%-WATER 100 ML IVPB SCH ×2 (10:21→21:09)
[2022-09-06] MEDS: MIDAZOLAM IN 0.9 % SOD.CHLORID 100 MG/100 ML PLAST..BAG IVPB SCH (10:22)
[2022-09-06] MEDS: FENTANYL NS IVPB 500 MCG/100 ML BAG IVPB SCH (10:22)
[2022-09-06] MEDS: HYDROCORTISONE 1% TOPICAL CREAM 30 GM TUBE TP SCH ×2 (10:23→21:34)
[2022-09-06] MEDS: KETOCONAZOLE 2% TOPICAL CREAM 15 GM TUBE TP SCH ×2 (10:23→21:35)
[2022-09-06] MEDS: BACITRACIN 15 GM TUBE TOPICAL OINTMENT TP SCH ×2 (10:23→21:32)
[2022-09-06] MEDS: FLUCONAZOLE 200 MG/NS 100 ML IVPB SCH (10:24)
[2022-09-06] MEDS: SODIUM BICARBONATE 8.4% 50 MEQ/50 ML DISP.SYRIN IVPUSH SCH ×2 (15:56→21:30)
[2022-09-06] MEDS: INSULIN REGULAR IVPB SCH (17:00)
[2022-09-06] MEDS: CALCIUM GLUCONATE IVPB SCH (17:00)
[2022-09-06] MEDS: [UNRECOGNIZED DRUG - OTHER] IVPB SCH (17:00)
[2022-09-06] MEDS: DAPTOMYCIN 650 MG in SODIUM CHLORIDE 50 ML IVPB SCH (21:18)
[2022-09-06] MEDS: NOREPINEPHRINE BITARTRATE/D5W 8 MG/250 ML BAG IVPB SCH (21:23)
[2022-09-06] MEDS: CHLORHEXIDINE GLUCONATE 4% CLEANSER FOR DECOLONIZATION TP SCH (21:32)
[2022-09-06] MEDS: FAT EMUL/SOY/MCT/OLIV/FISH OIL 250 ML IV SCH (21:58)
[2022-09-07] MEDS: TUBE FEED DECLOGGING SOLUTION 12,000 UNITS NR SCH ×3 (06:37→23:18)
[2022-09-07] MEDS: METOPROLOL TARTRATE 5 MG/5 ML VIAL IVPUSH PRN (06:38)
[2022-09-07] MEDS: INSULIN SLIDING SCALE (NOVOLOG) 1 VIAL SQ SCH ×4 (06:38→23:39)
[2022-09-07 08:55] LABS: CHLORIDE 112 mmol/L (98-107); SODIUM 146 mmol/L (136-145)
[2022-09-07] MEDS: FENTANYL NS IVPB 500 MCG/100 ML BAG IVPB SCH (09:00)
[2022-09-07 09:09] LABS: ALBUMIN 1.2 g/dl (3.4-5.0); ANION GAP 17 MMOL/L (8-16); CALCIUM 8.3 mg/dL (8.5-10.1); CO2 18 mmol/L (21-32); GLUCOSE,RANDOM 285 mg/dL (74-106); MAGNESIUM 2.4 mg/dL (1.8-2.4)
[2022-09-07 09:12] LABS: BILIRUBIN,TOTAL 0.6 mg/dL (0.2-1); PHOSPHOROUS 5.9 mg/dL (2.5-4.9); SGOT/AST 58 U/L (15-37)
[2022-09-07 09:13] LABS: ALK PHOS 146 U/L (45-117)
[2022-09-07 09:18] LABS: HEMATOCRIT 23.1 % (32.4-45.2); HEMOGLOBIN 7.8 GM/dL (10.7-15.3); MCH 32.6 pg (25.7-33.7); MCHC 33.5 g/dl (32.0-36.0); MEAN CELL VOLUME 97.3 fl (80-96); MEAN PLT VOLUME 12.4 fl (7.5-11.1); PLATELET COUNT 38 10^3/uL (134-434); RBC 2.38 M/mm3 (3.60-5.2); RDW 24.7 % (11.6-15.6)
[2022-09-07 09:24] LABS: WHITE BLOOD COUNT 13.9 K/mm3 (4.0-10.0)
[2022-09-07 09:27] LABS: SGPT/ALT 20 U/L (13-61)
[2022-09-07 09:30] LABS: TOT PROT 4.6 g/dl (6.4-8.2)
[2022-09-07] MEDS: MIDAZOLAM IN 0.9 % SOD.CHLORID 100 MG/100 ML PLAST..BAG IVPB SCH (09:39)
[2022-09-07] MEDS: BACITRACIN 15 GM TUBE TOPICAL OINTMENT TP SCH ×2 (09:39→23:19)
[2022-09-07] MEDS: methylPREDNISolone NA SUCC 40 MG/1 ML VIAL IVPUSH SCH (09:39)
[2022-09-07] MEDS: PANTOPRAZOLE SODIUM 40 MG VIAL IVPUSH SCH ×2 (09:39→23:12)
[2022-09-07] MEDS: KETOCONAZOLE 2% TOPICAL CREAM 15 GM TUBE TP SCH ×2 (09:39→23:19)
[2022-09-07] MEDS: HYDROCORTISONE 1% TOPICAL CREAM 30 GM TUBE TP SCH ×2 (09:40→23:18)
[2022-09-07] MEDS: SODIUM BICARBONATE 8.4% 50 MEQ/50 ML DISP.SYRIN IVPUSH SCH ×2 (09:42→23:12)
[2022-09-07 09:56] LABS: ANISOCYTOSIS 1+; CORRECTED WBC 12.19 K/mm3; MACROCYTOSIS 1+; TEAR DROP CELLS 2+
[2022-09-07 10:00] LABS: BLOOD UREA NITROGEN 190.7 mg/dL (7-18)
[2022-09-07] MEDS ORDERED: SODIUM CHLORIDE 500 ML IV STA (13:20)
[2022-09-07] MEDS ORDERED: predniSONE 5 MG/5 ML ORAL SOLN- UNIT-DOSE CUP GT ONE (14:00)
[2022-09-07] MEDS ORDERED: ESCITALOPRAM OXALATE 5 MG/5 ML PO SCH (15:00)
[2022-09-07] MEDS ORDERED: SODIUM CHLORIDE 250 ML IV PRN (17:02)
[2022-09-07] MEDS: INSULIN REGULAR IVPB SCH (17:29)
[2022-09-07] MEDS: CALCIUM GLUCONATE IVPB SCH (17:29)
[2022-09-07] MEDS: [UNRECOGNIZED DRUG - OTHER] IVPB SCH (17:29)
[2022-09-07] MEDS: FAT EMUL/SOY/MCT/OLIV/FISH OIL 250 ML IV SCH (23:18)
[2022-09-07] MEDS: CHLORHEXIDINE GLUCONATE 4% CLEANSER FOR DECOLONIZATION TP SCH (23:19)
[2022-09-08] MEDS: INSULIN SLIDING SCALE (NOVOLOG) 1 VIAL SQ SCH ×4 (06:54→21:15)
[2022-09-08] MEDS: TUBE FEED DECLOGGING SOLUTION 12,000 UNITS NR SCH ×3 (06:54→21:19)
[2022-09-08 08:17] LABS: CHLORIDE 111 mmol/L (98-107); SODIUM 144 mmol/L (136-145)
[2022-09-08 08:22] LABS: CALCIUM 8.1 mg/dL (8.5-10.1)
[2022-09-08 08:23] LABS: ALBUMIN 1.2 g/dl (3.4-5.0); ANION GAP 15 MMOL/L (8-16); CO2 19 mmol/L (21-32); GLUCOSE,RANDOM 290 mg/dL (74-106); MAGNESIUM 2.4 mg/dL (1.8-2.4)
[2022-09-08 08:26] LABS: CREATININE 2.2 mg/dL (0.55-1.3); PHOSPHOROUS 6.3 mg/dL (2.5-4.9); SGOT/AST 65 U/L (15-37)
[2022-09-08 08:27] LABS: BILIRUBIN,TOTAL 0.8 mg/dL (0.2-1)
[2022-09-08 08:28] LABS: ALK PHOS 157 U/L (45-117)
[2022-09-08 08:35] LABS: SGPT/ALT 25 U/L (13-61); TOT PROT 4.8 g/dl (6.4-8.2)
[2022-09-08 08:51] LABS: BLOOD UREA NITROGEN 193.6 mg/dL (7-18)
[2022-09-08] MEDS: MEROPENEM 1 GM in DEXTROSE 5%-WATER 100 ML IVPB SCH ×2 (08:53→20:13)
[2022-09-08] MEDS: BACITRACIN 15 GM TUBE TOPICAL OINTMENT TP SCH ×2 (09:01→21:17)
[2022-09-08 09:05] LABS: HEMATOCRIT 24.2 % (32.4-45.2); HEMOGLOBIN 8.2 GM/dL (10.7-15.3); MCH 32.8 pg (25.7-33.7); MEAN CELL VOLUME 96.6 fl (80-96); RDW 25.1 % (11.6-15.6)
[2022-09-08] MEDS: SODIUM BICARBONATE 8.4% 50 MEQ/50 ML DISP.SYRIN IVPUSH SCH ×2 (09:05→21:18)
[2022-09-08 09:12] LABS: WHITE BLOOD COUNT 13.3 K/mm3 (4.0-10.0)
[2022-09-08] MEDS: PANTOPRAZOLE SODIUM 40 MG VIAL IVPUSH SCH ×2 (09:16→21:16)
[2022-09-08] MEDS: KETOCONAZOLE 2% TOPICAL CREAM 15 GM TUBE TP SCH ×2 (09:17→21:19)
[2022-09-08] MEDS: HYDROCORTISONE 1% TOPICAL CREAM 30 GM TUBE TP SCH ×2 (09:17→21:18)
[2022-09-08] MEDS: predniSONE 5 MG/5 ML ORAL SOLN- UNIT-DOSE CUP GT SCH (09:19)
[2022-09-08] MEDS: ESCITALOPRAM OXALATE 5 MG/5 ML GT SCH (09:22)
[2022-09-08] MEDS ORDERED: FLUCONAZOLE 200 MG/NS 100 ML IVPB ONE (09:30)
[2022-09-08 09:49] LABS: PLATELET COUNT 31 10^3/uL (134-434)
[2022-09-08 12:50] LABS: ANISOCYTOSIS 2+; CORRECTED WBC 10.15 K/mm3; MACROCYTOSIS 2+; OVALOCYTE 2+; TEAR DROP CELLS 2+
[2022-09-08] MEDS: NOREPINEPHRINE BITARTRATE/D5W 8 MG/250 ML BAG IVPB SCH ×2 (15:48→19:00)
[2022-09-08] MEDS: INSULIN REGULAR IVPB SCH (16:05)
[2022-09-08] MEDS: [UNRECOGNIZED DRUG - OTHER] IVPB SCH (16:05)
[2022-09-08] MEDS: CALCIUM GLUCONATE IVPB SCH (16:05)
[2022-09-08] MEDS: DAPTOMYCIN 650 MG in SODIUM CHLORIDE 50 ML IVPB SCH (20:15)
[2022-09-08] MEDS: CHLORHEXIDINE GLUCONATE 4% CLEANSER FOR DECOLONIZATION TP SCH (21:17)
[2022-09-08] MEDS: ACETAMINOPHEN 1000 MG/100 ML BAG IVPB PRN (23:46)
[2022-09-09] MEDS: METOPROLOL TARTRATE 5 MG/5 ML VIAL IVPUSH PRN ×2 (03:33→20:35)
[2022-09-09] MEDS: TUBE FEED DECLOGGING SOLUTION 12,000 UNITS NR SCH ×3 (05:11→21:03)
[2022-09-09] MEDS: ACETAMINOPHEN 1000 MG/100 ML BAG IVPB PRN ×2 (05:49→17:45)
[2022-09-09] MEDS: INSULIN SLIDING SCALE (NOVOLOG) 1 VIAL SQ SCH ×4 (06:00→21:06)
[2022-09-09 07:46] LABS: HEMATOCRIT 22.5 % (32.4-45.2); HEMOGLOBIN 7.1 GM/dL (10.7-15.3); MCH 30.3 pg (25.7-33.7); MCHC 31.3 g/dl (32.0-36.0); MEAN CELL VOLUME 96.8 fl (80-96); MEAN PLT VOLUME 9.7 fl (7.5-11.1); RBC 2.33 M/mm3 (3.60-5.2); RDW 24.5 % (11.6-15.6); WHITE BLOOD COUNT 14.3 K/mm3 (4.0-10.0)
[2022-09-09 07:57] LABS: PLATELET COUNT 21 10^3/uL (134-434)
[2022-09-09 08:11] LABS: CHLORIDE 111 mmol/L (98-107); SODIUM 146 mmol/L (136-145)
[2022-09-09 08:16] LABS: ANION GAP 14 MMOL/L (8-16); CALCIUM 7.7 mg/dL (8.5-10.1); CO2 21 mmol/L (21-32); GLUCOSE,RANDOM 267 mg/dL (74-106); MAGNESIUM 2.2 mg/dL (1.8-2.4)
[2022-09-09 08:18] LABS: CREATININE 2.1 mg/dL (0.55-1.3); PHOSPHOROUS 5.4 mg/dL (2.5-4.9); SGOT/AST 722 U/L (15-37); SGPT/ALT 139 U/L (13-61)
[2022-09-09 08:20] LABS: BILIRUBIN,TOTAL 0.8 mg/dL (0.2-1); TOT PROT 4.6 g/dl (6.4-8.2)
[2022-09-09 08:22] LABS: ALK PHOS 139 U/L (45-117)
[2022-09-09 08:27] LABS: ALBUMIN 1.6 g/dl (3.4-5.0); BLOOD UREA NITROGEN 146.3 mg/dL (7-18)
[2022-09-09] MEDS: NOREPINEPHRINE BITARTRATE/D5W 8 MG/250 ML BAG IVPB SCH ×3 (08:37→20:34)
[2022-09-09 08:58] LABS: ANISOCYTOSIS 2+; CORRECTED WBC 11.26 K/mm3; MACROCYTOSIS 0; PLATELET ESTIMATE SIGNIFICANT INCREASE
[2022-09-09] MEDS ORDERED: FLUCONAZOLE 200 MG/D5W 100 ML IVPB SCH (10:00)
[2022-09-09] MEDS: ESCITALOPRAM OXALATE 5 MG/5 ML GT SCH (10:50)
[2022-09-09] MEDS: KETOCONAZOLE 2% TOPICAL CREAM 15 GM TUBE TP SCH ×2 (10:50→21:02)
[2022-09-09] MEDS: BACITRACIN 15 GM TUBE TOPICAL OINTMENT TP SCH ×2 (10:50→21:01)
[2022-09-09] MEDS: HYDROCORTISONE 1% TOPICAL CREAM 30 GM TUBE TP SCH ×2 (10:50→21:02)
[2022-09-09] MEDS: SODIUM BICARBONATE 8.4% 50 MEQ/50 ML DISP.SYRIN IVPUSH SCH ×2 (10:55→21:04)
[2022-09-09] MEDS: PANTOPRAZOLE SODIUM 40 MG VIAL IVPUSH SCH ×2 (10:55→21:04)
[2022-09-09] MEDS: predniSONE 5 MG/5 ML ORAL SOLN- UNIT-DOSE CUP GT SCH (11:32)
[2022-09-09] MEDS ORDERED: VANCOMYCIN/WATER 1,250 MG/250 ML BAG IVPB ONE (17:00)
[2022-09-09] MEDS ORDERED: CASPOFUNGIN ACETATE 70 MG in SODIUM CHLORIDE 250 ML IVPB ONE (17:05)
[2022-09-09] MEDS: INSULIN REGULAR IVPB SCH (17:22)
[2022-09-09] MEDS: CALCIUM GLUCONATE IVPB SCH (17:22)
[2022-09-09] MEDS: [UNRECOGNIZED DRUG - OTHER] IVPB SCH (17:22)
[2022-09-09] MEDS: MEROPENEM 1 GM in DEXTROSE 5%-WATER 100 ML IVPB SCH (17:22)
[2022-09-09] MEDS: CHLORHEXIDINE GLUCONATE 4% CLEANSER FOR DECOLONIZATION TP SCH (21:00)
[2022-09-09] MEDS ORDERED: LACTATED RINGERS SOLUTION 1,000 ML/1,000 ML INFUS.BAG IV STA (22:14)
[2022-09-10] MEDS: TUBE FEED DECLOGGING SOLUTION 12,000 UNITS NR SCH ×3 (05:36→21:26)
[2022-09-10] MEDS: MEROPENEM 1 GM in DEXTROSE 5%-WATER 100 ML IVPB SCH ×2 (05:40→18:27)
[2022-09-10] MEDS: NOREPINEPHRINE BITARTRATE/D5W 8 MG/250 ML BAG IVPB SCH ×2 (05:41→20:18)
[2022-09-10] MEDS: INSULIN SLIDING SCALE (NOVOLOG) 1 VIAL SQ SCH ×4 (06:06→21:25)
[2022-09-10] MEDS ORDERED: SODIUM CHLORIDE 250 ML IV PRN (07:06)
[2022-09-10] MEDS ORDERED: ALBUMIN HUMAN 25% 12.5 GM/50 ML VIAL IV SCH (07:15)
[2022-09-10 08:13] LABS: HEMATOCRIT 22.7 % (32.4-45.2); HEMOGLOBIN 7.1 GM/dL (10.7-15.3); MCH 30.5 pg (25.7-33.7); MCHC 31.5 g/dl (32.0-36.0); MEAN CELL VOLUME 96.8 fl (80-96); MEAN PLT VOLUME 10.8 fl (7.5-11.1); RBC 2.34 M/mm3 (3.60-5.2); RDW 24.4 % (11.6-15.6); WHITE BLOOD COUNT 16.8 K/mm3 (4.0-10.0)
[2022-09-10 08:29] LABS: CHLORIDE 106 mmol/L (98-107); SODIUM 143 mmol/L (136-145)
[2022-09-10 08:31] LABS: CALCIUM 7.1 mg/dL (8.5-10.1)
[2022-09-10 08:32] LABS: ALBUMIN 1.4 g/dl (3.4-5.0); ANION GAP 14 MMOL/L (8-16); CO2 23 mmol/L (21-32); GLUCOSE,RANDOM 239 mg/dL (74-106); MAGNESIUM 2.3 mg/dL (1.8-2.4)
[2022-09-10 08:35] LABS: CREATININE 2.4 mg/dL (0.55-1.3); PHOSPHOROUS 6.7 mg/dL (2.5-4.9); SGOT/AST 235 U/L (15-37); SGPT/ALT 106 U/L (13-61)
[2022-09-10 08:37] LABS: BILIRUBIN,TOTAL 0.8 mg/dL (0.2-1); TOT PROT 4.4 g/dl (6.4-8.2)
[2022-09-10 08:38] LABS: ALK PHOS 146 U/L (45-117)
[2022-09-10 08:50] LABS: BLOOD UREA NITROGEN 154.8 mg/dL (7-18)
[2022-09-10] MEDS ORDERED: SODIUM CHLORIDE 500 ML IV STA (09:03)
[2022-09-10] MEDS: VASOPRESSIN 40 UNITS/100 ML BAG IV SCH (09:14)
[2022-09-10 10:14] LABS: ANISOCYTOSIS 0; CORRECTED WBC 14.74 K/mm3; MACROCYTOSIS 0; TEAR DROP CELLS 1+
[2022-09-10 10:30] LABS: PLATELET COUNT 30 10^3/uL (134-434)
[2022-09-10] MEDS: ESCITALOPRAM OXALATE 5 MG/5 ML GT SCH (10:34)
[2022-09-10] MEDS: PANTOPRAZOLE SODIUM 40 MG VIAL IVPUSH SCH ×2 (10:35→21:24)
[2022-09-10] MEDS: BACITRACIN 15 GM TUBE TOPICAL OINTMENT TP SCH ×2 (10:35→21:25)
[2022-09-10] MEDS: KETOCONAZOLE 2% TOPICAL CREAM 15 GM TUBE TP SCH ×2 (10:35→21:26)
[2022-09-10] MEDS: predniSONE 5 MG/5 ML ORAL SOLN- UNIT-DOSE CUP GT SCH (10:35)
[2022-09-10] MEDS: HYDROCORTISONE 1% TOPICAL CREAM 30 GM TUBE TP SCH ×2 (10:35→21:26)
[2022-09-10] MEDS: SODIUM BICARBONATE 8.4% 50 MEQ/50 ML DISP.SYRIN IVPUSH SCH ×2 (10:36→21:24)
[2022-09-10] MEDS ORDERED: CASPOFUNGIN ACETATE 50 MG in SODIUM CHLORIDE 250 ML IVPB SCH (17:00)
[2022-09-10] MEDS: CHLORHEXIDINE GLUCONATE 4% CLEANSER FOR DECOLONIZATION TP SCH (21:26)
[2022-09-10] MEDS: DAPTOMYCIN 650 MG in SODIUM CHLORIDE 50 ML IVPB SCH (23:12)
[2022-09-11] MEDS: MEROPENEM 1 GM in DEXTROSE 5%-WATER 100 ML IVPB SCH ×2 (06:26→18:04)
[2022-09-11] MEDS: TUBE FEED DECLOGGING SOLUTION 12,000 UNITS NR SCH ×2 (06:27→14:01)
[2022-09-11] MEDS: INSULIN SLIDING SCALE (NOVOLOG) 1 VIAL SQ SCH ×2 (06:35→12:32)
[2022-09-11 08:15] LABS: CHLORIDE 104 mmol/L (98-107); SODIUM 142 mmol/L (136-145)
[2022-09-11 08:16] LABS: HEMATOCRIT 23.2 % (32.4-45.2); HEMOGLOBIN 7.1 GM/dL (10.7-15.3); MCH 30.4 pg (25.7-33.7); MCHC 30.6 g/dl (32.0-36.0); MEAN CELL VOLUME 99.1 fl (80-96); MEAN PLT VOLUME 10.4 fl (7.5-11.1); RBC 2.34 M/mm3 (3.60-5.2); RDW 26.4 % (11.6-15.6); WHITE BLOOD COUNT 18.5 K/mm3 (4.0-10.0)
[2022-09-11 08:19] LABS: ALBUMIN 1.2 g/dl (3.4-5.0); ANION GAP 16 MMOL/L (8-16); CO2 21 mmol/L (21-32); GLUCOSE,RANDOM 357 mg/dL (74-106); MAGNESIUM 2.4 mg/dL (1.8-2.4)
[2022-09-11 08:22] LABS: CREATININE 2.8 mg/dL (0.55-1.3); PHOSPHOROUS 8.8 mg/dL (2.5-4.9); SGOT/AST 98 U/L (15-37)
[2022-09-11 08:23] LABS: ALK PHOS 141 U/L (45-117)
[2022-09-11 08:24] LABS: BILIRUBIN,TOTAL 0.7 mg/dL (0.2-1); TOT PROT 4.4 g/dl (6.4-8.2)
[2022-09-11 08:27] LABS: SGPT/ALT 70 U/L (13-61)
[2022-09-11 08:32] LABS: PLATELET COUNT 30 10^3/uL (134-434)
[2022-09-11 09:15] LABS: BLOOD UREA NITROGEN 156.1 mg/dL (7-18); CALCIUM 6.8 mg/dL (8.5-10.1)
[2022-09-11] MEDS: PANTOPRAZOLE SODIUM 40 MG VIAL IVPUSH SCH (09:45)
[2022-09-11] MEDS: VASOPRESSIN 40 UNITS/100 ML BAG IV SCH (09:46)
[2022-09-11] MEDS: NOREPINEPHRINE BITARTRATE/D5W 8 MG/250 ML BAG IVPB SCH (09:46)
[2022-09-11] MEDS: BACITRACIN 15 GM TUBE TOPICAL OINTMENT TP SCH (09:47)
[2022-09-11] MEDS: KETOCONAZOLE 2% TOPICAL CREAM 15 GM TUBE TP SCH (09:48)
[2022-09-11] MEDS: HYDROCORTISONE 1% TOPICAL CREAM 30 GM TUBE TP SCH (09:48)
[2022-09-11] MEDS: predniSONE 5 MG/5 ML ORAL SOLN- UNIT-DOSE CUP GT SCH (09:53)
[2022-09-11] MEDS: ESCITALOPRAM OXALATE 5 MG/5 ML GT SCH (09:54)
[2022-09-11] MEDS: SODIUM BICARBONATE 8.4% 50 MEQ/50 ML DISP.SYRIN IVPUSH SCH (10:14)
[2022-09-11] MEDS ORDERED: morphine CARPU-JECT 2 MG/1 ML DISP.SYRIN IVPUSH PRN (14:07)
[2022-09-11 14:46] VITALS: TEMP 98.4
[2022-09-11 16:13] VITALS: BP 41/23
[2022-09-11] MEDS ORDERED: INSULIN SLIDING SCALE (NOVOLOG) 1 VIAL SQ SCH (18:00)
[2022-09-11 19:38] VITALS: PULSE 75; RESP 20
[2022-09-12] MEDS ORDERED: SODIUM ZIRCONIUM CYCLOSILICATE (LOKELMA) 5 GM PACKET GT ONE (15:19)
== END 2022-09-11 21:00 | disposition expired | DRG 3 ==
LOC: JER 11:55 → JERBED 18:12 → J7W 21:41 → JICU 08-14 22:34
PROVIDERS: ADMIT Family Medicine; ATTEND Family Medicine
PROC: 0D1B4Z4 Bypass Ileum to Cutaneous, Percutaneous Endoscopic Approach (ICD-10-PCS; 2022-08-15)
PROC: 30233N1 Transfusion of Nonautologous Red Blood Cells into Peripheral Vein, Percutaneous Approach (ICD-10-PCS; 2022-08-15)
PROC: 30233L1 Transfusion of Nonautologous Fresh Plasma into Peripheral Vein, Percutaneous Approach (ICD-10-PCS; 2022-08-15)
PROC: 30233K1 Transfusion of Nonautologous Frozen Plasma into Peripheral Vein, Percutaneous Approach (ICD-10-PCS; 2022-08-15)
PROC: 30233R1 Transfusion of Nonautologous Platelets into Peripheral Vein, Percutaneous Approach (ICD-10-PCS; 2022-08-15)
PROC: 0DTF4ZZ Resection of Right Large Intestine, Percutaneous Endoscopic Approach (ICD-10-PCS; principal; 2022-08-15 04:00)
PROC: 0DU907Z Supplement Duodenum with Autologous Tissue Substitute, Open Approach (ICD-10-PCS; 2022-08-21)
PROC: 0FT40ZZ Resection of Gallbladder, Open Approach (ICD-10-PCS; 2022-08-21)
PROC: 0D9670Z Drainage of Stomach with Drainage Device, Via Natural or Artificial Opening (ICD-10-PCS; 2022-08-21)
PROC: 0BJ08ZZ Inspection of Tracheobronchial Tree, Via Natural or Artificial Opening Endoscopic (ICD-10-PCS; 2022-08-21)
PROC: 0DHA0UZ Insertion of Feeding Device into Jejunum, Open Approach (ICD-10-PCS; 2022-08-21)
PROC: 5A1945Z Respiratory Ventilation, 24-96 Consecutive Hours (ICD-10-PCS; 2022-08-28)
PROC: 0BH17EZ Insertion of Endotracheal Airway into Trachea, Via Natural or Artificial Opening (ICD-10-PCS; 2022-08-28)
PROC: 05HM33Z Insertion of Infusion Device into Right Internal Jugular Vein, Percutaneous Approach (ICD-10-PCS; 2022-08-30)
PROC: B543ZZA Ultrasonography of Right Jugular Veins, Guidance (ICD-10-PCS; 2022-08-30)
PROC: 0B110F4 Bypass Trachea to Cutaneous with Tracheostomy Device, Open Approach (ICD-10-PCS; 2022-09-04)
PROC: 0DJ00ZZ Inspection of Upper Intestinal Tract, Open Approach (ICD-10-PCS; 2022-09-04)
PROC: 05HN33Z Insertion of Infusion Device into Left Internal Jugular Vein, Percutaneous Approach (ICD-10-PCS; 2022-09-07)
PROC: B544ZZA Ultrasonography of Left Jugular Veins, Guidance (ICD-10-PCS; 2022-09-07)
PROC: 05HB33Z Insertion of Infusion Device into Right Basilic Vein, Percutaneous Approach (ICD-10-PCS; 2022-09-09)
DX: K63.1 Perforation of intestine (nontraumatic) (principal); J18.9 Pneumonia, unspecified organism; J95.821 Acute postprocedural respiratory failure; T81.12XA Postprocedural septic shock, initial encounter; K26.5 Chronic or unspecified duodenal ulcer with perforation; M31.7 Microscopic polyangiitis; N39.0 Urinary tract infection, site not specified; I82.402 Acute embolism and thrombosis of unspecified deep veins of left lower extremity; L03.116 Cellulitis of left lower limb; R18.8 Other ascites; D61.818 Other pancytopenia; K91.89 Other postprocedural complications and disorders of digestive system; N17.9 Acute kidney failure, unspecified; E87.0 Hyperosmolality and hypernatremia; K80.20 Calculus of gallbladder without cholecystitis without obstruction; N18.9 Chronic kidney disease, unspecified; D36.9 Benign neoplasm, unspecified site; I46.9 Cardiac arrest, cause unspecified; Y83.9 Surgical procedure, unspecified as the cause of abnormal reaction of the patient, or of later complication, without mention of misadventure at the time of the procedure; E87.6 Hypokalemia; I12.9 Hypertensive chronic kidney disease with stage 1 through stage 4 chronic kidney disease, or unspecified chronic kidney disease; E66.9 Obesity, unspecified; Z68.34 Body mass index [BMI] 34.0-34.9, adult; E78.5 Hyperlipidemia, unspecified; I95.9 Hypotension, unspecified; D72.829 Elevated white blood cell count, unspecified; D69.6 Thrombocytopenia, unspecified
CPT/HCPCS: 31500; 36415; 36430; 36600; 71045-TC-FY; 73610-TC-LT-FY; 73630-TC-LT; 73700-TC-RT; 74018-TC-FY; 74176-TC; 76705-TC; 76775-TC; 76856-TC; 78226-TC; 80048; 80053; 80076; 81003; 82272; 82542; 82550; 82607; 82746; 82803; 82962; 83605; 83615; 83690; 83735; 83880; 84100; 84155; 84165; 84484; 85025; 85027; 85384; 85610; 85651; 85730; 86022; 86140; 86803; 86850; 86900; 86901; 86922; 87040; 87070; 87086; 87107; 87186; 87205; 87281; 87324; 87338; 87340; 87449; 87496; 87804; 87899; 88304-TC; 88307-TC; 93005; 93010; 93306-TC; 93926-TC; 93970-TC; 94002; 94010; 94640; 97116-GP; 97162-GP; 99285-25; A9537; C9803-CS; J0637; J0878; J1644; J3490; P9017; P9034; P9058; Q9968; U0003; U0005